=== PATIENT | male | born 1955 | race Caucasian/White ===

== ENCOUNTER 2019-07-08 11:29 | Inpatient (IN) | payer MEDICARE, OTHER ==
[~2019-07-08] VITALS: Ht 175 cm; Wt 95.3 kg
[2019-07-08] VITALS (9 sets, daily range): BP systolic 89–114; BP diastolic 60–74
[2019-07-08] MEDS ORDERED: ADENOSINE 6 MG/2 ML (ADENOCARD) VIAL IV ONE ×5 (11:37→12:00)
[2019-07-08] MEDS ORDERED: LACTATED RINGERS 1,000 ML IV ONE ×2 (11:44→12:44)
[2019-07-08] MEDS ORDERED: AMIODARONE INJECTION 450 MG in D5W IV SOLUTION (EXCEL) 250 ML IV SCH (12:00)
[2019-07-08] MEDS ORDERED: ASPIRIN 81 MG CHEW (CHILDREN'S ASA) PO ONE (12:00)
[2019-07-08] MEDS ORDERED: LACTATED RINGERS 1,000 ML IV SCH (12:00)
[2019-07-08 12:04] LABS: BASOPHILS % (AUTO) 1 % (0-10); EOSINOPHILS % (AUTO) 1 % (0-10); HEMATOCRIT 48 % (40-54); HEMOGLOBIN 15.3 G/DL (13.3-17.7); MEAN CORPUSCULAR HEMOGLOBIN 28 PG (25-34); MEAN CORPUSCULAR HGB CONC 32 G/DL (32-36); MEAN CORPUSCULAR VOLUME 88 FL (80-99); MEAN PLATELET VOLUME 11.1 FL (7.4-10.4); MONOCYTES % (AUTO) 9 % (0-12); NEUTROPHILS % (AUTO) 69 % (42-75); PLATELET COUNT 315 10^3/uL (130-400); RED CELL DISTRIBUTION WIDTH 12.4 % (10.0-14.5); WHITE BLOOD COUNT 15.4 10^3/uL (4.3-11.0)
[2019-07-08 12:05] LABS: BASOPHILS # (AUTO) 0.2 10^3/uL (0.0-0.1); EOSINOPHILS # (AUTO) 0.2 10^3/uL (0.0-0.3); LYMPHOCYTES % (AUTO) 20 % (12-44); MONOCYTES # (AUTO) 1.4 X 10^3 (0.0-1.0); NEUTROPHILS # (AUTO) 10.6 X 10^3 (1.8-7.8)
[2019-07-08] MEDS ORDERED: D5W 100 ML IVPB 100 ML IV ONE (12:06)
[2019-07-08] MEDS ORDERED: AMIODARONE (OMNICELL DRIP KIT) 150 MG/3 ML IV ONE (12:07)
[2019-07-08 12:14] LABS: INR 0.9 (0.8-1.4); PROTHROMBIN TIME PATIENT 12.6 SEC (12.2-14.7)
[2019-07-08] MEDS ORDERED: AMIODARONE FOR BOLUS 150 MG in D5W 100 ML IVPB 100 ML IV ONE ×2 (12:15→12:45)
--- NOTE | 2019-07-08 12:15 | Diagnostic Imaging Report ---
EXAMINATION: Chest, one view. HISTORY: Preop. COMPARISON: 01/17/2008. FINDINGS: The lung volumes are normal. No focal consolidation is seen. No large pleural effusion or pneumothorax is seen. The cardiomediastinal silhouette is prominent with post-CABG changes noted. No acute osseous abnormality is seen. IMPRESSION: 1. Cardiomegaly. No focal consolidation or pulmonary mass. Dictated by: Dictated on workstation # [id number]
[2019-07-08 12:26] LABS: BAND NEUTROPHILS 3 %; BASOPHILS % (MANUAL) 1 %; LYMPHOCYTES % (MANUAL) 21 %; MONOCYTES % (MANUAL) 9 %; NEUTROPHILS % (MANUAL) 64 %; RBC MORPH NORMAL; REACTIVE LYMPHOCYTES 2 %
[2019-07-08 12:27] LABS: CARBON DIOXIDE 21 MMOL/L (21-32); CHLORIDE 98 MMOL/L (98-107); POTASSIUM 4.8 MMOL/L (3.6-5.0); SODIUM 134 MMOL/L (135-145)
[2019-07-08 12:28] LABS: ALANINE AMINOTRANSFERASE 35 U/L (0-55); ALBUMIN 4.5 GM/DL (3.2-4.5); ALKALINE PHOSPHATASE 81 U/L (40-136); BILIRUBIN,TOTAL 0.3 MG/DL (0.1-1.0); BUN/CREATININE RATIO 22; CALCIUM 10.2 MG/DL (8.5-10.1); CREATININE SERUM 0.93 MG/DL (0.60-1.30); GFR ESTIMATED > 60; GLUCOSE 309 MG/DL (70-105); MAGNESIUM 1.8 MG/DL (1.6-2.4); TOTAL PROTEIN 7.5 GM/DL (6.4-8.2)
--- NOTE | 2019-07-08 12:30 | ED Cardiac General ---
History of Present Illness General Chief Complaint: Dizziness/Syncope Stated Complaint: SYNCOPE Source: patient Exam Limitations: no limitations History of Present Illness Date Seen by Provider: Jul 08, 2019 Time Seen by Provider: 11:30 Initial Comments Here with report of near syncope this morning. States he has taken a shower and felt very weak. He eased himself down into the bathtub and did not fall. He did not completely pass out. After resting for a bit he felt better. 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 Had weakness and not feeling well afterwards and family finally talked him into coming into the emergency department. On arrival he was noted to have very fast heart rate. Does have history of triple bypass as well as abdominal aortic aneurysm repair in the 90s. He has had yearly exams for the abdominal aneurysm with no changes or concerns. Denies abdominal pain or chest pain. He is not on blood thinners but does take a spirin daily. He has no history of similar problems. Timing/Duration: 4-6 hours Severity: moderate Location: central Activities at Onset: activity Prior CP/Workup: cardiac cath, heart attack Modifying Factors: worse with exercise; improves with rest NTG SL ORACLE PROGRAMMER ANALYST: No ASA po ORACLE PROGRAMMER ANALYST: Yes Associated Systoms: No Chest Pain, No Fever/Chills, No Nausea/Vomiting, No Shortness of Air; Weakness Allergies and Home Medications Allergies Coded Allergies: No Known Drug Allergies (Unverified , 07/08/19) Patient Home Medication List Home Medication List Reviewed: Yes Review of Systems Review of Systems Constitutional: no symptoms reported EENTM: No Symptoms Reported Respiratory: See HPI Cardiovascular: See HPI, Irregular Heart Rate, Lightheadedness Gastrointestinal: Denies Abdominal Pain, Denies Diarrhea, Denies Nausea, Denies Vomiting Genitourinary: No Symptoms Reported Musculoskeletal: no symptoms reported Skin: no symptoms reported Psychiatric/Neurological: See HPI; Denies Headache, Denies Numbness Endocrine: No Symptoms Reported All Other Systems Reviewed Negative Unless Noted: Yes Past Plycwtd-Zlkgqs-Vczapm Hx Past Med/Social Hx: Reviewed Nursing Past Med/Soc Hx Patient Social History Alcohol Use: Denies Use Recreational Drug Use: No Smoking Status: Never a Smoker Recent Foreign Travel: No Past Medical History Surgeries: Yes Abdominal, CABG, Vascular Surgery Respiratory: No Cardiac: Yes Coronary Artery Disease, High Cholesterol, Hypertension Neurological: No Genitourinary: No Gastrointestinal: No Endocrine: Yes Diabetes, Non-Insulin dep Family Medical History Reviewed Nursing Family Hx Heart Disease Physical Exam Vital Signs Vital Signs - First Documented 07/08/19 07/08/19 11:35 12:37 Temp 36.2 Pulse 171 Resp 16 B/P (MAP) 110/77 (88) Pulse Ox 96 O2 Flow Rate 2.00 Capillary Refill : Height, Weight, BMI Height: '" Weight: lbs. oz. kg; BMI Method: General Appearance: No Apparent Distress, WD/WN HEENT: PERRL/EOMI, Pharynx Normal Neck: Non Tender, Supple Respiratory: Lungs Clear, Normal Breath Sounds Cardiovascular: No Murmur, Tachycardia Gastrointestinal: Non Tender, Soft Extremity: Normal Inspection, Normal Range of Motion, Non Tender, No Calf Tenderness Neurologic/Psychiatric: Alert, Oriented x3 Skin: Normal Color, Warm/Dry Progress/Results/Core Measures Results/Orders Lab Results Laboratory Tests Test 07/08/19 11:40 Range/Units White Blood Count 15.4 H 4.3-11.0 10^3/uL Red Blood Count 5.39 4.35-5.85 10^6/uL Hemoglobin 15.3 13.3-17.7 G/DL Hematocrit 48 40-54 % Mean Corpuscular Volume 88 80-99 FL Mean Corpuscular Hemoglobin 28 25-34 PG Mean Corpuscular Hemoglobin Concent 32 32-36 G/DL Red Cell Distribution Width 12.4 10.0-14.5 % Platelet Count 315 130-400 10^3/uL Mean Platelet Volume 11.1 H 7.4-10.4 FL Neutrophils (%) (Auto) 69 42-75 % Lymphocytes (%) (Auto) 20 12-44 % Monocytes (%) (Auto) 9 0-12 % Eosinophils (%) (Auto) 1 0-10 % Basophils (%) (Auto) 1 0-10 % Neutrophils # (Auto) 10.6 H 1.8-7.8 X 10^3 Lymphocytes # (Auto) 3.0 1.0-4.0 X 10^3 Monocytes # (Auto) 1.4 H 0.0-1.0 X 10^3 Eosinophils # (Auto) 0.2 0.0-0.3 10^3/uL Basophils # (Auto) 0.2 H 0.0-0.1 10^3/uL Neutrophils % (Manual) 64 % Lymphocytes % (Manual) 21 % Monocytes % (Manual) 9 % Basophils % (Manual) 1 % Band Neutrophils 3 % Reactive Lymphocytes 2 % Blood Morphology Comment NORMAL Prothrombin Time 12.6 12.2-14.7 SEC INR Comment 0.9 0.8-1.4 Activated Partial Thromboplast Time 26 24-35 SEC Sodium Level 134 L 135-145 MMOL/L Potassium Level 4.8 3.6-5.0 MMOL/L Chloride Level 98 98-107 MMOL/L Carbon Dioxide Level 21 21-32 MMOL/L Anion Gap 15 H 5-14 MMOL/L Blood Urea Nitrogen 20 H 7-18 MG/DL Creatinine 0.93 0.60-1.30 MG/DL Estimat Glomerular Filtration Rate > 60 BUN/Creatinine Ratio 22 Glucose Level 309 H 70-105 MG/DL Calcium Level 10.2 H 8.5-10.1 MG/DL Corrected Calcium 9.8 8.5-10.1 MG/DL Magnesium Level 1.8 1.6-2.4 MG/DL Total Bilirubin 0.3 0.1-1.0 MG/DL Aspartate Amino Transf (AST/SGOT) 29 5-34 U/L Alanine Aminotransferase (ALT/SGPT) 35 0-55 U/L Alkaline Phosphatase 81 40-136 U/L Myoglobin 65.6 10.0-92.0 NG/ML Troponin I < 0.30 <0.30 NG/ML Total Protein 7.5 6.4-8.2 GM/DL Albumin 4.5 3.2-4.5 GM/DL My Orders Orders - DAVID SEXTON MD Adenosine Injection (Adenocard Injection (07/08/19 11:37) Lactated Ringers (Lr 1000 Ml Iv Solution (07/08/19 11:44) Cbc With Automated Diff (07/08/19 11:48) Magnesium (07/08/19 11:48) Chest 1 View Ap/Pa Only (07/08/19 11:48) Ekg Tracing (07/08/19 11:48) Comprehensive Metabolic Panel (07/08/19 11:48) Myoglobin Serum (07/08/19 11:48) Protime With Inr (07/08/19 11:48) Partial Thromboplastin Time (07/08/19 11:48) O2 (07/08/19 11:48) Monitor-Rhythm Ecg Trace Only (07/08/19 11:48) Lipid Panel (07/09/19 06:00) Aspirin Chewable Tablet (Baby Aspirin Ch (07/08/19 12:00) Ed Iv/Invasive Line Start (07/08/19 11:48) Troponin I Fs (07/08/19 11:48) Adenosine Injection (Adenocard Injection (07/08/19 12:00) Adenosine Injection (Adenocard Injection (07/08/19 12:00) Adenosine Injection (Adenocard Injection (07/08/19 11:43) Adenosine Injection (Adenocard Injection (07/08/19 11:44) Lactated Ringers (Lr 1000 Ml Iv Solution (07/08/19 12:00) Metoprolol Succinate (Xl) Tab (Toprol Xl (07/08/19 12:00) Amiodarone Injection (Cordarone Injectio (07/08/19 12:00) D5w 100 Ml Ivpb (Dextrose 5% Water Iv So (07/08/19 12:06) Amiodarone For Bolus (Cordarone Bolus) (07/08/19 12:07) Amiodarone For Bolus (Cordarone Bolus) (07/08/19 12:15) Manual Differential (07/08/19 11:40) Amiodarone For Bolus (Cordarone Bolus) (07/08/19 12:45) Ed Iv/Invasive Line Start (07/08/19 12:44) Lr 1000ml Iv (07/08/19 12:44) Enoxaparin Injection (Lovenox Injection) (07/08/19 12:45) Medications Given in ED Current Medications Medications Dose Ordered Sig/Lucía Route Start Time Stop Time Status Last Admin Dose Admin Adenosine 6 mg ONCE ONCE IV 07/08/19 12:00 07/08/19 12:01 DC 07/08/19 11:41 6 MG Adenosine 12 mg ONCE ONCE IV 07/08/19 12:00 07/08/19 12:01 DC 07/08/19 11:45 12 MG Amiodarone HCl 150 mg/Dextrose 103 ml @ 600 mls/hr ONCE ONCE IV 07/08/19 12:15 07/08/19 12:25 DC 07/08/19 12:22 600 MLS/HR Amiodarone HCl 150 mg/Dextrose 103 ml @ 600 mls/hr ONCE ONCE IV 07/08/19 12:45 07/08/19 12:55 07/08/19 12:41 600 MLS/HR Aspirin 324 mg ONCE ONCE PO 07/08/19 12:00 07/08/19 12:01 DC 07/08/19 12:06 324 MG Metoprolol Succinate 50 mg ONCE ONCE PO 07/08/19 12:00 07/08/19 12:01 DC 07/08/19 12:06 50 MG Vital Signs/I&O 07/08/19 07/08/19 11:35 12:37 Temp 36.2 Pulse 171 Resp 16 B/P (MAP) 110/77 (88) Pulse Ox 96 92 O2 Flow Rate 2.00 Progress Progress Note : Progress Note Seen and evaluated. IV, labs, EKG and chest x-ray ordered. ASA 324 mg by mouth ordered. Adenosine 6 mg IV followed by 12 mg IV with no change in heart rate. This does appear to be ventricular tachycardia related. I did discuss the case with Dr. Forman at 1155. He is recommending amiodarone bolus of 150 mg and up to 300 mg followed by amiodarone drip. Also recommending metoprolol XL 50 mg by mouth. He will need to be admitted to the ICU and we will make arrangements for that. At this point, patient's blood pressure is greater than 90 systolic and he is not symptomatic so synchronized cardioversion is not indicated yet but still remains possible. We will initiate orders as directed and monitor the patient with anticipation of transfered to [facility] ICU. 1249: We will initiate Lovenox 100 mg subcutaneous which is approximately 1 mg/kg. He is getting second bolus of amiodarone. Blood pressure is noted to be 80s to 90s but he is mentating well. We do have LR running and we'll continue that at 125 an hour. I did discuss the case with Dr. Saucedo and she accepts patient for admission on- call for [facility]. Patient will go to the ICU. Heart rate has dropped to the 150s now. Initial ECG Impression Date: Jul 08, 2019 Initial ECG Impression Time: 11:35 Initial ECG Rate: 174 Initial ECG Rhythm: V.Tach Initial ECG Comparisson: No Previous ECG Available Comment Ventricular tachycardia with rate of 1 and a for and left axis deviation. No evidence of ST elevation OK although it would be difficult to determine with the rate. Interpreted by me. Discussed with Dr. Forman. Diagnostic Imaging Diagonstic Imaging: Xray Plain Films/CT/US/NM/MRI: chest Comments [facility], [facility]. POS [place], [place] POS NAME: MICHAEL HENDRICKSON [facility] REC#: [id number] PT STATUS: REG ER : 1955 PHYSICIAN: DAVID SEXTON MD ADMIT DATE: 07/08/19/ER FS Signed POSDate of Exam:07/08/19 CHEST 1 VIEW AP/PA ONLY EXAMINATION: Chest, one view. HISTORY: Preop. COMPARISON: 01/17/2008. FINDINGS: The lung volumes are normal. No focal consolidation is seen. No large pleural effusion or pneumothorax is seen. The cardiomediastinal silhouette is prominent with post-CABG changes noted. No acute osseous abnormality is seen. IMPRESSION: 1. Cardiomegaly. No focal consolidation or pulmonary mass. Dictated by: Dictated on workstation # [id number] Dict: 07/08/19 1213 Trans: 07/08/19 1217 [id number] Interpreted by: ELI FOSTER DO Electronically signed by: ELI FOSTER DO 07/08/19 1217 Reviewed: Reviewed by Me Departure Communication (Admissions) Time/Spoke to Consulting Phy: 11:55 Impression Primary Impression: Ventricular tachycardia, incessant Disposition: ADMITTED INPATIENT Condition: Critical Admissions Decision to Admit Reason: Admit from ER (General) Decision to Admit/Date: Jul 08, 2019 Time/Decision to Admit Time: 11:55 Departure-Patient Inst. Referrals: SHIRA GOMEZ MD (PCP/Family) Primary Care Physician DAVID SEXTON MD Jul 08, 2019 12:30 POS
[2019-07-08] MEDS ORDERED: ENOXAPARIN 100 MG/1 ML (LOVENOX) SYR SC ONE (12:45)
[2019-07-08] MEDS ORDERED: LIDOCAINE 2% VISCOUS 15 ML UDC ONE (14:24)
[2019-07-08] MEDS ORDERED: NS IV 500 ML 500 ML ONE (14:25)
[2019-07-08] MEDS ORDERED: proPOfol 200 MG/20 ML (DIPRIVAN) VIAL IV ONE (14:26)
[2019-07-08] MEDS ORDERED: MIDAZOLAM 5 MG/5 ML (VERSED) VIAL ONE (14:26)
--- NOTE | 2019-07-08 14:37 | Consultation-Cardiology ---
HPI-Cardiology Cardiology Consultation: Date of Consultation 07/08/19 Time Seen by a Provider: 14:15 Date of Admission Attending Physician Sharlene Saucedo DO Admitting Physician Dex Beasley MD Consulting Physician MIGEL TAMAYO MD, MA, FACP, FACC, FSCAI, CCDS HPI: Chief Complaint: Reason for consultation: VT HPI 64 yo man who presented to [facility] ER for an episode of near-syncope lasting a few seconds this am. 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 Was noted to have wide-complex tach. Treated with amiodarone and sent to this hosp. Denies cp or palp. Has chronic mild to mod shortness of breath. No leg swelling Review of Systems-Cardiology Review of Systems Constitutional: malaise, tiredness; No weight loss, No weight gain Eyes: No vision change Ears/Nose/Throat: No ear discharge, No nasal drainage, No recent hearing loss Respiratory: As described under HPI Cardiovascular: As described under HPI Gastrointestinal: No constipation, No diarrhea, No nausea, No vomiting Genitourinary: No dysuria, No hematuria, No urine frequency changes Musculoskeletal: No back pain, No joint pain Skin: No rash Psychiatric/Neurological: No seizure, No focal weakness, No syncope Hematologic: No bleeding abnormalities All Other Systems Reviewed Negative Unless Noted: Yes IEL-Dqdsgm-Wkpmxj Hx Patient Social History Alcohol Use: Denies Use Recreational Drug Use: No Smoking Status: Never a Smoker 2nd Hand Smoke Exposure: No Recent Foreign Travel: No Recent Infectious Disease Expo: No Hospitalization with Isolation: Denies Immunizations Up To Date Date of Pneumonia Vaccine: May 07, 2017 Date of Influenza Vaccine: May 06, 2019 Past Medical History PMH As described under Assessment. Family Medical History Family Medical History: Does not report fam h/o early CAD or SCD Allergies and Home Medications Allergies Coded Allergies: No Known Drug Allergies (Unverified , 07/08/19) Patient Home Medication List Home Medication List Reviewed: Yes Physical Exam-Cardiology Physical Exam Vital Signs/I&O 07/08/19 07/08/19 07/08/19 11:35 12:37 13:07 Temp 36.2 35.5 Pulse 171 163 Resp 16 24 B/P (MAP) 110/77 (88) 111/81 Pulse Ox 96 92 92 O2 Flow Rate 2.00 Capillary Refill : Less Than 3 Seconds Constitutional: AAO x 3, well-developed, well-nourished HEENT: EOMI, hearing is well preserved; No xanthelasmas are seen Neck: carotid pulses are 2 + bilaterally, with good upstrokes Respiratory: No accessory muscle use; other (fair to good air entry) Cardiovascular: regular rate-rhythm, S1 and S2, systolic murmur (2/6 CRISTINA at card base) Gastrointestinal: No tender; soft; No guarding, No rebound; audible bowel sounds Extremities: No pedal edema, No clubbing, No cyanosis Neurologic/Psychiatric: oriented x 3, other (moves all limbs equally) Skin: No rash on exposed areas, No ulcerations on exposed areas Data Review Labs Laboratory Tests 07/08/19 11:40: White Blood Count 15.4H, Red Blood Count 5.39, Hemoglobin 15.3, Hematocrit 48, Mean Corpuscular Volume 88, Mean Corpuscular Hemoglobin 28, Mean Corpuscular Hemoglobin Concent 32, Red Cell Distribution Width 12.4, Platelet Count 315, Mean Platelet Volume 11.1H, Neutrophils (%) (Auto) 69, Lymphocytes (%) (Auto) 20, Monocytes (%) (Auto) 9, Eosinophils (%) (Auto) 1, Basophils (%) (Auto) 1, Neutrophils # (Auto) 10.6H, Lymphocytes # (Auto) 3.0, Monocytes # (Auto) 1.4H, Eosinophils # (Auto) 0.2, Basophils # (Auto) 0.2H, Neutrophils % (Manual) 64, Lymphocytes % (Manual) 21, Monocytes % (Manual) 9, Basophils % (Manual) 1, Band Neutrophils 3, Reactive Lymphocytes 2, Blood Morphology Comment NORMAL, Prothrombin Time 12.6, INR Comment 0.9, Activated Partial Thromboplast Time 26, Sodium Level 134L, Potassium Level 4.8, Chloride Level 98, Carbon Dioxide Level 21, Anion Gap 15H, Blood Urea Nitrogen 20H, Creatinine 0.93, Estimat Glomerular Filtration Rate > 60, BUN/Creatinine Ratio 22, Glucose Level 309H, Calcium Level 10.2H, Corrected Calcium 9.8, Magnesium Level 1.8, Total Bilirubin 0.3, Aspartate Amino Transf (AST/SGOT) 29, Alanine Aminotransferase (ALT/SGPT) 35, Alkaline Phosphatase 81, Myoglobin 65.6, Troponin I < 0.30, Total Protein 7.5, Albumin 4.5 A/P-Cardiology Assessment/Admission Diagnosis Incessant VT CAD. H/o CABG in the 1990s PAD. H/o AAA intervention (details unknown to patient several years ago DM II Obesity with BMI approx 31 Noncompliance (apparently not following with any cardiologists for several years) Discussion and Recomendations Critical Care: 2:10 pm - 2:50pm I recommended cardioversion of VT because hemodynamically significant (pre sumably the cause of near-syncope this am) and unresponsive to amiodarone started at [facility] this am. He was alert enough to understand all issues and provided informed consent. Anesthesia Svce was requested stat. We gave 100 J sync shock through external pads under short-acting anesthesia. This restored NSR Plan to continue therapy with amiodarone ASA and beta-donte Lovenox for now Would need ischemia w/u. If no ischemia issues, then ICD Clinical Quality Measures AMI/AHF: ASA po Prior to arrival: Yes DVT/VTE Risk/Contraindication: Risk Factor Score Per Nursin RFS Level Per Nursing on Admit: 4+=Very High MIGEL TAMAYO MD FACP FACC CCDS Jul 08, 2019 14:37 POS
[2019-07-08] MEDS ORDERED: AMIODARONE 450 MG/250 ML D5W EXCEL IV SCH ×2 (14:45)
[2019-07-08] MEDS ORDERED: METF-399 PO (14:52)
[2019-07-08] MEDS ORDERED: SITA100T12 PO (14:52)
[2019-07-08] MEDS ORDERED: ATEN25TA PO (14:52)
[2019-07-08] MEDS ORDERED: LOSA100T57 PO (14:52)
[2019-07-08] MEDS ORDERED: PRAV40TA2 PO (14:52)
[2019-07-08] MEDS ORDERED: ASPI-983 PO (14:52)
[2019-07-08] MEDS ORDERED: CITA20TA9 PO (14:52)
--- NOTE | 2019-07-08 14:54 | Anesthesia-General Post-Op ---
MAC Patient Condition Mental Status/LOC: Same as Preop Cardiovascular: Satisfactory Nausea/Vomiting: Absent Respiratory: Satisfactory Pain: Controlled Complications: Absent Post Op Complications Complications None Follow Up Care/Instructions Patient Instructions None needed. Anesthesiology Discharge Order Discharge Order Patient is doing well, no complaints, stable vital signs, no apparent adverse anesthesia problems. No complications reported per nursing. MANPREET MAYS CRNA Jul 08, 2019 14:54 POS
[2019-07-08] MEDS ORDERED: CATHETER FLUSH 10 ML SYR IV PRN (15:00)
[2019-07-08] MEDS ORDERED: ASPI-808 PO (15:03)
[2019-07-08] MEDS ORDERED: NAPR220T66 PO (15:03)
[2019-07-08] MEDS ORDERED: DOCU-238 PO (15:03)
--- NOTE | 2019-07-08 15:04 | NUR ---
SPOKE WITH THE PATIENT ABOUT HIS MEDICATIONS. WE WENT OVER THE EXT MED HX AND HE VERIFIED HOW HE TAKES THEM. HE TAKES THE FOLLOWING OTC: ASPIRIN 325MG DAILY COLACE BID ALEVE 1 TAB PRN
--- NOTE | 2019-07-08 15:30 | NUR ---
1415- THIS NURSE NOTIFIED GORDON WITH DR TAMAYO PT IS ON THE FLOOR. 1420- ANESTHESIA NOTIFIED DR TAMAYO WOULD LIKE ASSISTANCE WITH [facility]. 1430 ANESTHESIA AT BEDSIDE 1439- SUPPLIES GATHERED AND DR TAMAYO AT BEDSIDE 1439- IV PROPOFOL GIVEN PER ANESTHESIA 1441- SYNCHRONIZED SHOCK DELIVERED AT [address] TAMAYO. PT IS NSR WITH A HEART RATE OF 66 1442 EKG OBTAINED AND PLACED ON CHART. DR TAMAYO ORDER TO CONTINUE AMIO. DRIP. NURSE AT BEDSIDE TO MONITOR. VITALS STABLE.
--- NOTE | 2019-07-08 16:36 | NUR ---
PT GIVEN 4 ML OF DEFINITY SOLUTION. PT TOLERATED EXAM WELL.
[2019-07-08] MEDS: inSUlin ASPART (NovoLOG) 1 UNIT/0.01 ML (CHARGE PER UNIT) SC SCH ×2 (17:13→20:51)
--- NOTE | 2019-07-08 17:21 | NUR ---
THIS NURSE NOTIFIED DR LAWSON PT IN NSR POST [facility]. ORDERS GIVEN FOR HEART HEALTHY DIET.
[2019-07-08] MEDS: NS IV 1000 ML 1,000 ML IV SCH (17:39)
[2019-07-08] MEDS: MAGNESIUM 1 GM/D5W 100 ML IVPB IV SCH ×2 (18:58→20:17)
--- NOTE | 2019-07-08 21:28 | History & Physical-Hospitalist ---
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 He has a history of aortic aneurysm repair in 2010 and a history of a heart attack in 1993. He was placed on amiodarone drip per cardiology recommendations and he became stable and when he arrived in ICU he was shocked which return the patient back to normal sinus rhythm. Currently he denies any pain or shortness of breath. He does not use oxygen at home. His sister is at the bedside. Source: patient, family, RN/MD Exam Limitations: no limitations Date Seen 07/08/19 Time Seen by a Provider: 18:00 Attending Physician Sharlene Saucedo Pankaj K MD Referring Physician Date of Admission Jul 08, 2019 at 13:07 Home Medications & Allergies Home Medications Reviewed patient Home Medication Reconciliation performed by pharmacy medication reconciliations accelerator technician and/or nursing. Patients Allergies have been reviewed. Allergies Allergies Coded Allergies No Known Drug Allergies (Pphsxvfqou06/3/19) Past Stkdwus-Hhjmeu-Tjgtba Hx Past Med/Social Hx: Reviewed Nursing Past Med/Soc Hx, Reviewed and Corrections made Patient Social History Marrital Status: single Employed/Student: employed Alcohol Use: Denies Use Recreational Drug Use: No Smoking Status: Never a Smoker 2nd Hand Smoke Exposure: No Recent Foreign Travel: No Contact w/other who traveled: No Recent Infectious Disease Expo: No Immunizations Up To Date Date of Pneumonia Vaccine: May 07, 2017 Date of Influenza Vaccine: May 06, 2019 Past Medical History Surgeries: Abdominal, CABG, Vascular Surgery Cardiac: Coronary Artery Disease, High Cholesterol, Hypertension Endocrine: Diabetes, Non-Insulin dep Family History Reviewed Nursing Family Hx Heart Disease Review of Systems Constitutional: see HPI, malaise, weakness Psychiatric/Neurological: Weakness Physical Exam Physical Exam Vital Signs Vital Signs - First Documented 07/08/19 07/08/19 07/08/19 11:35 12:37 14:15 Temp 36.2 Pulse 171 Resp 16 B/P (MAP) 110/77 (88) Pulse Ox 96 O2 Delivery Nasal Cannula O2 Flow Rate 2.00 Capillary Refill : Less Than 3 Seconds Height, Weight, BMI Height: '" Weight: lbs. oz. kg; 30.53 BMI Method: General Appearance: No Apparent Distress, WD/WN, Chronically ill Eyes: Right Eye Normal Inspection, Right Eye PERRL HEENT: PERRL/EOMI, Normal ENT Inspection, Pharynx Normal, Moist Mucous Membranes Neck: Full Range of Motion, Normal Inspection, Non Tender Respiratory: Chest Non Tender, Lungs Clear, Normal Breath Sounds, No Accessory Muscle Use, No Respiratory Distress Cardiovascular: Regular Rate, Rhythm, No Edema, No Gallop, No JVD, No Murmur, Normal Peripheral Pulses Gastrointestinal: Normal Bowel Sounds, No Organomegaly, No Pulsatile Mass, Non Tender, Soft Back: Normal Inspection, No CVA Tenderness, No Vertebral Tenderness Extremity: Normal Capillary Refill, Normal Inspection, Normal Range of Motion, Non Tender, No Calf Tenderness, No Pedal Edema Neurologic/Psychiatric: Alert, Oriented x3, No Motor/Sensory Deficits, Normal Mood/Affect Skin: Normal Color, Warm/Dry Lymphatic: No Adenopathy Results Results/Procedures Labs Laboratory Tests 07/08/19 11:40 Patient resulted labs reviewed. Assessment/Plan Admission Diagnosis Assessment: s/p shock for Ventricular tachycardia CAD AAA s/p repair 2010 Plan: Appreciate Cardiology expertise Admission Status: Inpatient Order (span 2 midnights) Reason for Inpatient Admission: V tachy Diagnosis/Problems Diagnosis/Problems (1) Ventricular tachycardia, incessant Status: Acute Clinical Quality Measures AMI/AHF: ASA po Prior to arrival: Yes DVT/VTE Risk/Contraindication: Risk Factor Score Per Nursin RFS Level Per Nursing on Admit: 4+=Very High SHARLENE SAUCEDO DO Jul 08, 2019 21:28 POS
[2019-07-09] VITALS (23 sets, daily range): BP systolic 75–188; BP diastolic 40–121
--- NOTE | 2019-07-09 00:07 | OPERATIVE REPORT ---
DATE OF SERVICE: PREOPERATIVE DIAGNOSIS: Incessant ventricular tachycardia. POSTOPERATIVE DIAGNOSIS: Sinus rhythm. PROCEDURE: External electrical cardioversion. The patient is a 64-year-old man who presented with incessant ventricular tachycardia. There was evidence of hemodynamic instability (symptoms of near syncope prior to presentation). The ventricular tachycardia did not respond to amiodarone. Consent was obtained for cardioversion. The nurse records specialist provided short acting general anesthesia under which 100 joules biphasic shock was given through external pads which converted incessant ventricular tachycardia to sinus rhythm. He tolerated the procedure well. Job ID: [id number] DocumentID: [id number] Dictated Date: 07/08/2019 16:33:34 Loss Prevention Research Engineer Date: 07/09/2019 00:07:37 Dictated By: MIGEL TAMAYO MD, MA, FACP, FACC,
[2019-07-09] MEDS: NS IV 1000 ML 1,000 ML IV SCH ×3 (01:42→16:10)
[2019-07-09 04:19] LABS: BASOPHILS # (AUTO) 0.1 10^3/uL (0.0-0.1); BASOPHILS % (AUTO) 1 % (0-10); EOSINOPHILS # (AUTO) 0.2 10^3/uL (0.0-0.3); EOSINOPHILS % (AUTO) 2 % (0-10); HEMATOCRIT 40 % (40-54); HEMOGLOBIN 12.9 G/DL (13.3-17.7); LYMPHOCYTES # (AUTO) 2.4 X 10^3 (1.0-4.0); LYMPHOCYTES % (AUTO) 23 % (12-44); MEAN CORPUSCULAR HEMOGLOBIN 29 PG (25-34); MEAN CORPUSCULAR HGB CONC 33 G/DL (32-36); MEAN CORPUSCULAR VOLUME 89 FL (80-99); MEAN PLATELET VOLUME 11.3 FL (7.4-10.4); MONOCYTES # (AUTO) 1.1 X 10^3 (0.0-1.0); MONOCYTES % (AUTO) 11 % (0-12); NEUTROPHILS # (AUTO) 6.6 X 10^3 (1.8-7.8); NEUTROPHILS % (AUTO) 64 % (42-75); PLATELET COUNT 229 10^3/uL (130-400); RED CELL DISTRIBUTION WIDTH 12.9 % (10.0-14.5); WHITE BLOOD COUNT 10.4 10^3/uL (4.3-11.0)
[2019-07-09 04:45] LABS: ALANINE AMINOTRANSFERASE 25 U/L (0-55); ALBUMIN 3.6 GM/DL (3.2-4.5); ALKALINE PHOSPHATASE 48 U/L (40-136); BILIRUBIN,TOTAL 0.3 MG/DL (0.1-1.0); BUN/CREATININE RATIO 17; CALCIUM 8.5 MG/DL (8.5-10.1); CARBON DIOXIDE 19 MMOL/L (21-32); CHLORIDE 107 MMOL/L (98-107); CHOLESTEROL 116 MG/DL (< 200); CREATININE SERUM 0.93 MG/DL (0.60-1.30); GFR ESTIMATED > 60; GLUCOSE 196 MG/DL (70-105); HDL CHOLESTEROL 21 MG/DL (40-60); POTASSIUM 4.4 MMOL/L (3.6-5.0); SODIUM 137 MMOL/L (135-145); TOTAL PROTEIN 5.7 GM/DL (6.4-8.2); TRIGLYCERIDES 230 MG/DL (<150); VLDL CHOLESTEROL 46 MG/DL (5-40)
[2019-07-09] MEDS: inSUlin ASPART (NovoLOG) 1 UNIT/0.01 ML (CHARGE PER UNIT) SC SCH ×4 (06:01→19:58)
--- NOTE | 2019-07-09 08:44 | Progress Note - Hospitalist ---
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 He has a history of aortic aneurysm repair in 2010 and a history of a heart attack in 1993. He was placed on amiodarone drip per cardiology recommendations and he became stable and when he arrived in ICU he was shocked which return the patient back to normal sinus rhythm. Currently he denies any pain or shortness of breath. He does not use oxygen at home. His sister is at the bedside. Subjective/Events-last exam Patient was alert and looked well. Patient stated that he felt fine but his tailbone did feel bruise possibly due to lowering himself in the shower Patient was positive that he did not hit his head. Patient denied any urinary symptoms but has not had a bowel movement which he reported as normal. Review of Systems General: No Chills, No Other (fevers) HEENT: No Head Aches, No Visual Changes, No Eye Pain Pulmonary: No Dyspnea, No Cough Cardiovascular: No: Chest Pain, Palpitations, Edema Gastrointestinal: No: Nausea, Vomiting, Abdominal Pain Genitourinary: No Dysuria Musculoskeletal: other (Chronic symptoms) Objective Exam Vital Signs Vital Signs Date Time Temp Pulse Resp B/P (MAP) Pulse Ox O2 Delivery O2 Flow Rate FiO2 07/09/19 13:00 61 16 130/70 (90) 93 Nasal Cannula 2.00 07/09/19 12:00 36.1 Capillary Refill : Less Than 3 Seconds General Appearance: No Apparent Distress, WD/WN HEENT: Normal ENT Inspection Neck: Normal Inspection, Supple Respiratory: Chest Non Tender, Lungs Clear, No Accessory Muscle Use, No Respiratory Distress Cardiovascular: No Edema, Normal Peripheral Pulses (2/4 radial bilaterally), Bradycardia (with regular rhythm) Gastrointestinal: Non Tender, Soft, Distended Extremity: Non Tender, No Calf Tenderness Neurologic/Psychiatric: Alert, Oriented x3, Normal Mood/Affect Skin: Normal Color, Warm/Dry Results/Procedures Lab Laboratory Tests 12/4/19 03:30 Patient resulted labs reviewed. Assessment/Plan Assessment and Plan Assess & Plan/Chief Complaint Monomorphic ventricular tachycardia Echo showed Hypokenesis of inferiorseptal myocardium, inferior myocardium, mid inferior myocardium History of triple bypass and AAA Chronic Constipation minimal pain of tailbone Amiodarone ASA and beta-donte Lovenox Miralax Clinical Quality Measures AMI/AHF: ASA po Prior to arrival: Yes DVT/VTE Risk/Contraindication: Risk Factor Score Per Nursin RFS Level Per Nursing on Admit: 4+=Very High SHARLENE LAWSON DO 07/09/192052: Subjective Subjective/Events-last exam Pt doing pretty well Cardiac cath set for tomorrow Miralax twice daily will be added Will HgbA1C because his blood sugars are out of control and he doesn't check his sugars at home Review of Systems General: Fatigue Objective Exam General Appearance: No Apparent Distress, WD/WN Respiratory: Lungs Clear Cardiovascular: Regular Rate, Rhythm Neurologic/Psychiatric: Alert, Oriented x3, No Motor/Sensory Deficits, Normal Mood/Affect Assessment/Plan Assessment and Plan Assess & Plan/Chief Complaint Cath Miralax Diagnosis/Problems Diagnosis/Problems (1) Ventricular tachycardia, incessant Status: Acute Supervisory-Addendum Brief Verification & Attestation Participated in pt care: history, MDM, physical Personally performed: exam, history, MDM, supervision of care Care discussed with: Medical Student Procedures: n/a Results interpretation: Verified all documentation Verification and Attestation of Medical Student E/M Service A medical student performed and documented this service in my presence. I reviewed and verified all information documented by the medical student and made modifications to such information, when appropriate. I personally performed the physical exam and medical decision making. Sharlene Lawson, Jul 09, 2019,20:53 [facility] Jul 09, 2019 08:44 SHARLENE CHAMPAGNE DO Jul 09, 2019 20:53 POS
[2019-07-09] MEDS ORDERED: CLOPIDOGREL 75 MG (PLAVIX) TABLET PO NR (10:00)
[2019-07-09] MEDS: meTOproloL SUCCINATE 50 MG (TOPROL XL) TAB PO SCH (10:11)
[2019-07-09] MEDS: ASPIRIN 81 MG CHEW (CHILDREN'S ASA) PO SCH (10:11)
--- NOTE | 2019-07-09 11:45 | Pulmonary Consultation ---
History of Present Illness History of Present Illness Date Seen by Provider: Jul 09, 2019 Time Seen by Provider: 13:27 Date of Admission History of Present Illness 64 yo presented to [facility] ER secondary to worsening weakness and near-syncope lasting a few seconds this am. Pt was noted while in the ED to have wide-complex tach. Treated with amiodarone and sent to this hosp. Denies cp or palp. Has chronic mild to mod shortness of breath. No leg swelling Allergies and Home Medications Allergies Coded Allergies: No Known Drug Allergies (Unverified , 07/08/19) Home Medications Amiodarone HCl 200 Mg Tablet, 400 MG PO DAILY Prescribed by: GORDON MAYFIELD on 07/11/19 1202 Aspirin 81 Mg Tab.chew, 81 MG PO DAILY Prescribed by: GORDON MAYFIELD on 07/11/19 1202 Atorvastatin Calcium 40 Mg Tablet, 40 MG PO HS Prescribed by: GORDON MAYFIELD on 07/11/19 1202 Cefuroxime Axetil 500 Mg Tablet, 500 MG PO BID Prescribed by: GORDON MAYFIELD on 07/11/19 1203 Citalopram Hydrobromide 20 Mg Tablet, 20 MG PO HS, (Reported) Clopidogrel Bisulfate 75 Mg Tablet, 75 MG PO DAILY Prescribed by: GORDON MAYFIELD on 07/11/19 1202 Docusate Sodium 100 Mg Capsule, 100 MG PO BID, (Reported) Glyburide 1.25 Mg Tablet, 1.25 MG PO BID Prescribed by: GUERA LAWSON on 07/12/19 1200 Metoprolol Succinate 100 Mg Tab.er.24h, 100 MG PO DAILY Prescribed by: GORDON MAYFIELD on 07/11/19 1202 Sacubitril/Valsartan 1 Each Tablet, 1 TAB PO BID Prescribed by: GORDON MAYFIELD on 07/11/19 1202 Sitagliptin Phosphate 100 Mg Tablet, 100 MG PO DAILY, (Reported) Past Refkyft-Bsuzqx-Djruqt Hx Past Med/Social Hx: Reviewed Nursing Past Med/Soc Hx, Reviewed and Corrections made Patient Social History Alcohol Use: Denies Use Recreational Drug Use: No Smoking Status: Never a Smoker 2nd Hand Smoke Exposure: No Recent Foreign Travel: No Contact w/Someone Who Travel: No Recent Infectious Disease Expo: No Physical Abuse: No Sexual Abuse: No Mistreated: No Fear: No Immunizations Up To Date Date of Pneumonia Vaccine: May 07, 2017 Date of Influenza Vaccine: May 06, 2019 Past Medical History Surgeries: Yes Abdominal, CABG, Vascular Surgery Respiratory: No Cardiac: Yes Coronary Artery Disease, High Cholesterol, Hypertension Neurological: No Genitourinary: No Gastrointestinal: No Endocrine: Yes Diabetes, Non-Insulin dep HEENT: No Cancer: No Psychosocial: No Family Medical History Reviewed Nursing Family Hx Heart Disease Review of Systems Time Seen by Provider: 13:29 Sepsis Event Evaluation Height, Weight, BMI Height: '" Weight: lbs. oz. kg; 30.53 BMI Method: Exam Exam Vital Signs Date Time Temp Pulse Resp B/P (MAP) Pulse Ox O2 Delivery O2 Flow Rate FiO2 07/09/19 11:00 60 14 118/83 (95) 91 Nasal Cannula 2.00 07/09/19 10:00 60 20 117/76 (90) 91 Nasal Cannula 2.00 07/09/19 09:00 60 9 116/70 (85) 91 Nasal Cannula 2.00 07/09/19 08:00 96 Room Air 07/09/19 08:00 60 19 130/77 (94) 91 Nasal Cannula 2.00 07/09/19 07:00 56 22 109/61 (77) 92 Nasal Cannula 2.00 07/09/19 06:47 57 07/09/19 06:00 55 13 109/61 (77) 90 Nasal Cannula 2.00 07/09/19 05:00 55 14 96/53 (67) 91 Nasal Cannula 2.00 07/09/19 04:00 Room Air 07/09/19 04:00 54 21 84/49 (61) 91 Nasal Cannula 2.00 07/09/19 03:00 54 12 88/40 (56) 93 Nasal Cannula 2.00 07/09/19 02:00 53 16 75/40 (52) 92 Nasal Cannula 2.00 07/09/19 01:00 55 20 98/56 (70) 91 Nasal Cannula 2.00 07/09/19 01:00 54 07/09/19 00:00 36.1 07/09/19 00:00 Room Air 07/09/19 00:00 58 13 101/65 (77) 94 Nasal Cannula 2.00 07/08/19 23:00 57 16 104/60 (75) 92 Nasal Cannula 2.00 07/08/19 22:00 56 18 92 Nasal Cannula 2.00 07/08/19 21:00 59 20 106/67 (80) 92 Nasal Cannula 2.00 07/08/19 20:21 36.6 07/08/19 20:00 61 18 111/69 (83) 92 Nasal Cannula 2.00 07/08/19 20:00 Room Air 07/08/19 19:00 64 07/08/19 19:00 63 14 105/72 (83) 93 Nasal Cannula 2.00 07/08/19 18:00 67 18 114/74 (87) 99 Nasal Cannula 2.00 07/08/19 17:00 63 10 89/65 (73) 99 Nasal Cannula 2.00 07/08/19 16:00 99 Nasal Cannula 2.00 07/08/19 16:00 66 15 105/72 (83) 97 Nasal Cannula 2.00 07/08/19 15:43 36.4 07/08/19 15:00 68 19 100/71 (81) 96 Nasal Cannula 2.00 07/08/19 14:41 67 07/08/19 14:20 96 Room Air 07/08/19 14:15 160 16 90/69 (76) 95 Nasal Cannula 2.00 07/08/19 14:02 161 07/08/19 13:07 35.5 163 24 111/81 92 07/08/19 12:37 92 2.00 I & O 07/09/19 06:59 Intake Total 4365 ml Balance 4365 ml Height & Weight Height: '" Weight: lbs. oz. kg; 30.53 BMI Method: General Appearance: No Apparent Distress, WD/WN HEENT: Normal ENT Inspection Neck: Normal Inspection, Supple Respiratory: Chest Non Tender, Lungs Clear, No Accessory Muscle Use, No Resp iratory Distress Cardiovascular: No Edema, Normal Peripheral Pulses (2/4 radial bilaterally), Bradycardia (with regular rhythm) Capillary Refill: Less Than 3 Seconds Extremity: Non Tender, No Calf Tenderness Neurologic/Psychiatric: Alert, Oriented x3, Normal Mood/Affect Skin: Normal Color, Warm/Dry Lymphatic: No Adenopathy Results Lab Laboratory Tests 07/08/19 11:40 07/09/19 03:30 Assessment/Plan Assessment/Plan S/p V tach -Cardiology consulted Obesity with probable DEVEN -Will plan for PSG CAD AAA s/p repair 2010 JOE العلي DO Jul 09, 2019 11:44
--- NOTE | 2019-07-09 15:52 | Progress Note - Cardiology ---
Cardiology SOAP Progress Note Subjective: No cp or palp or syncope or shortness of breath at rest No swelling No N/V Mild gen malaise Objective: I&O/Vital Signs 07/09/19 07/09/19 07/09/19 07/09/19 04:00 04:00 05:00 06:00 Pulse 54 55 55 Resp 21 14 13 B/P (MAP) 84/49 (61) 96/53 (67) 109/61 (77) Pulse Ox 91 91 90 O2 Delivery Nasal Cannula Room Air Nasal Cannula Nasal Cannula O2 Flow Rate 2.00 2.00 2.00 07/09/19 07/09/19 07/09/19 07/09/19 06:47 07:00 08:00 08:00 Pulse 57 56 60 Resp 22 19 B/P (MAP) 109/61 (77) 130/77 (94) Pulse Ox 92 91 96 O2 Delivery Nasal Cannula Nasal Cannula Room Air O2 Flow Rate 2.00 2.00 07/09/19 07/09/19 07/09/19 07/09/19 09:00 10:00 11:00 12:00 Pulse 60 60 60 66 Resp 9 20 14 39 B/P (MAP) 116/70 (85) 117/76 (90) 118/83 (95) 188/121 (143) Pulse Ox 91 91 91 93 O2 Delivery Nasal Cannula Nasal Cannula Nasal Cannula Nasal Cannula O2 Flow Rate 2.00 2.00 2.00 2.00 07/09/19 07/09/19 07/09/19 12:00 13:00 13:00 Temp 36.1 Pulse 61 61 Resp 16 B/P (MAP) 130/70 (90) Pulse Ox 93 O2 Delivery Nasal Cannula O2 Flow Rate 2.00 07/09/19 00:00 Intake Total 3215 ml Balance 3215 ml Constitutional: AAO x 3, well-developed, well-nourished Respiratory: No accessory muscle use; other (fair to good air entry) Cardiovascular: regular rate-rhythm, S1 and S2, systolic murmur (2/6 CRISTINA at card base) Gastrointestional: No tender; soft; No guarding, No rebound; audible bowel sounds Extremities: No pedal edema, No clubbing, No cyanosis Neurologic/Psychiatric: oriented x 3, other (moves all limbs equally) Skin: No rash on exposed areas, No ulcerations on exposed areas Results/Procedures: Labs Laboratory Tests 07/08/19 20:35: Glucometer 257H 07/09/19 03:30: White Blood Count 10.4, Red Blood Count 4.46, Hemoglobin 12.9L, Hematocrit 40, Mean Corpuscular Volume 89, Mean Corpuscular Hemoglobin 29, Mean Corpuscular Hemoglobin Concent 33, Red Cell Distribution Width 12.9, Platelet Count 229, Mean Platelet Volume 11.3H, Neutrophils (%) (Auto) 64, Lymphocytes (%) (Auto) 23, Monocytes (%) (Auto) 11, Eosinophils (%) (Auto) 2, Basophils (%) (Auto) 1, Neutrophils # (Auto) 6.6, Lymphocytes # (Auto) 2.4, Monocytes # (Auto) 1.1H, Eosinophils # (Auto) 0.2, Basophils # (Auto) 0.1, Sodium Level 137, Potassium Level 4.4, Chloride Level 107, Carbon Dioxide Level 19L, Anion Gap 11, Blood Urea Nitrogen 16, Creatinine 0.93, Estimat Glomerular Filtration Rate > 60, BUN/Creatinine Ratio 17, Glucose Level 196H, Calcium Level 8.5, Corrected Calc ium 8.8, Magnesium Level 2.0, Total Bilirubin 0.3, Aspartate Amino Transf (AST/SGOT) 34, Alanine Aminotransferase (ALT/SGPT) 25, Alkaline Phosphatase 48, Total Protein 5.7L, Albumin 3.6, Triglycerides Level 230H, Cholesterol Level 116, LDL Cholesterol Direct 79, VLDL Cholesterol 46H, HDL Cholesterol 21L, Thyroid Stimulating Hormone (TSH) 0.78 07/09/19 09:00: Troponin I 4.179*H 07/09/19 09:56: Glucometer 263H Laboratory Tests 07/08/19 11:40 07/09/19 03:30 A/P: Assessment: Elevated troponin: unclear if type I MT (ACS) or type 2 MT (incessant VT yesterday) Incessant VT on 07/08/19 CAD. H/o CABG in the PAD. H/o AAA intervention (details unknown to patient several years ago DM II Obesity with BMI approx 31 Noncompliance (apparently not following with any cardiologists for several years) Plan: Card cath recommended. Rationale, procedure, risks, benefits, potential complications, alternatives reviewed (of cath and possibly ad hoc PCI). He understands and provides informed consent. Scheduled for tomorrow If no ischemia issues, then ICD would be needed ASA and beta-donte Add Plavix Change Lovenox to DVT-prophylaxis dose Clinical Quality Measures AMI/AHF: ASA po Prior to arrival: Yes MIGEL TAMAYO MD FACP [facility] CCDS Jul 09, 2019 15:52 POS
[2019-07-09] MEDS: ENOXAPARIN 40 MG/0.4 ML (LOVENOX) SYR SC SCH (17:02)
[2019-07-09] MEDS ORDERED: POLYETHYLENE GLYCOL 17 GM (MIRALAX) PACK PO ONE (21:00)
[2019-07-10] VITALS (21 sets, daily range): BP systolic 103–163; BP diastolic 58–99
[2019-07-10] MEDS: NS IV 1000 ML 1,000 ML IV SCH ×4 (00:19→18:18)
[2019-07-10 03:39] LABS: HEMOGLOBIN 12.8 G/DL (13.3-17.7); MEAN PLATELET VOLUME 11.3 FL (7.4-10.4); RED CELL DISTRIBUTION WIDTH 12.8 % (10.0-14.5); WHITE BLOOD COUNT 9.6 10^3/uL (4.3-11.0)
[2019-07-10 03:58] LABS: BUN/CREATININE RATIO 16; CALCIUM 8.3 MG/DL (8.5-10.1); CARBON DIOXIDE 20 MMOL/L (21-32); CHLORIDE 109 MMOL/L (98-107); CREATININE SERUM 0.88 MG/DL (0.60-1.30); GFR ESTIMATED > 60; GLUCOSE 175 MG/DL (70-105); POTASSIUM 4.1 MMOL/L (3.6-5.0); SODIUM 139 MMOL/L (135-145)
[2019-07-10 04:21] LABS: MAGNESIUM 1.8 MG/DL (1.6-2.4); PHOSPHORUS 2.6 MG/DL (2.3-4.7)
[2019-07-10] MEDS: inSUlin ASPART (NovoLOG) 1 UNIT/0.01 ML (CHARGE PER UNIT) SC SCH ×4 (05:28→19:53)
--- NOTE | 2019-07-10 05:54 | Pulmonary Progress Note ---
Subjective Time Seen by a Provider: 05:54 Subjective/Events-last exam Heart cath planned for today. Sepsis Event Evaluation Height, Weight, BMI Height: '" Weight: lbs. oz. kg; 30.53 BMI Method: Exam Exam Vital Signs Date Time Temp Pulse Resp B/P (MAP) Pulse Ox O2 Delivery O2 Flow Rate FiO2 07/10/19 03:27 97 Room Air 07/10/19 03:26 37.0 07/10/19 03:00 77 23 141/77 (98) 90 Room Air 07/10/19 02:00 66 20 103/58 (73) 89 Room Air 07/10/19 01:00 66 23 122/74 (90) 88 Room Air 07/10/19 01:00 66 07/10/19 00:00 73 22 129/73 (91) 90 Room Air 07/10/19 00:00 97 Room Air 07/09/19 23:58 37.1 07/09/19 23:00 80 26 138/81 (100) 89 Room Air 07/09/19 22:00 70 24 115/63 (80) 89 Room Air 07/09/19 21:00 71 22 99/71 (80) 90 Room Air 07/09/19 20:00 77 21 132/89 (103) 90 Room Air 07/09/19 20:00 37.7 07/09/19 20:00 97 Room Air 07/09/19 19:00 75 13 108/56 (73) 89 Room Air 07/09/19 19:00 75 07/09/19 18:00 71 16 180/56 (97) 94 Room Air 07/09/19 17:00 63 25 91 Room Air 07/09/19 16:00 60 25 132/81 (98) 90 Room Air 07/09/19 16:00 97 Room Air 07/09/19 16:00 36.7 07/09/19 15:00 70 28 126/85 (99) 92 Room Air 07/09/19 14:00 60 21 114/67 (83) 91 Room Air 07/09/19 13:00 61 16 130/70 (90) 93 Nasal Cannula 2.00 07/09/19 13:00 61 07/09/19 12:00 98 Room Air 07/09/19 12:00 36.1 07/09/19 12:00 66 39 188/121 (143) 93 Nasal Cannula 2.00 07/09/19 11:00 60 14 118/83 (95) 91 Nasal Cannula 2.00 07/09/19 10:00 60 20 117/76 (90) 91 Nasal Cannula 2.00 07/09/19 09:00 60 9 116/70 (85) 91 Nasal Cannula 2.00 07/09/19 08:00 96 Room Air 07/09/19 08:00 60 19 130/77 (94) 91 Nasal Cannula 2.00 07/09/19 07:00 56 22 109/61 (77) 92 Nasal Cannula 2.00 07/09/19 06:47 57 07/09/19 06:00 55 13 109/61 (77) 90 Nasal Cannula 2.00 I & O 07/10/19 07:00 Intake Total 2100 ml Output Total 400 ml Balance 1700 ml Height & Weight Height: '" Weight: lbs. oz. kg; 30.53 BMI Method: General Appearance: No Apparent Distress, WD/WN HEENT: Normal ENT Inspection Neck: Normal Inspection, Supple Respiratory: Lungs Clear Cardiovascular: Regular Rate, Rhythm Capillary Refill: Less Than 3 Seconds Extremity: Non Tender, No Calf Tenderness Neurologic/Psychiatric: Alert, Oriented x3, No Motor/Sensory Deficits, Normal Mood/Affect Skin: Normal Color, Warm/Dry Lymphatic: No Adenopathy Results Lab Laboratory Tests 07/08/19 11:40 07/09/19 03:30 07/10/19 03:05 Assessment/Plan Assessment/Plan S/p V tach -Cardiology consulted -Plan is for cardiac cath today Obesity with probable DEVEN -Will plan for PSG CAD AAA s/p repair 2010 JOE العلي DO Jul 10, 2019 05:54 POS
[2019-07-10] MEDS ORDERED: NALOXONE 0.4 MG/ML 1 ML (NARCAN) VIAL IV ONE (06:00)
[2019-07-10] MEDS ORDERED: NALOXONE INJECTION 0.4 MG in NS (IVPB) 99 ML IV SCH (06:00)
[2019-07-10] MEDS ORDERED: fentaNYL INJECTION 100 MCG/2 ML AMP ONE (08:04)
[2019-07-10] MEDS ORDERED: MIDAZOLAM 5 MG/5 ML (VERSED) VIAL ONE (08:04)
[2019-07-10] MEDS ORDERED: HEParin (CATH LAB) 2,000 ML IV ONE (08:05)
[2019-07-10] MEDS ORDERED: LIDOCAINE 1% INJ 20 ML 20 ML VIAL ONE (08:05)
[2019-07-10] MEDS ORDERED: NS IV 1000 ML 0 ML ONE (08:05)
[2019-07-10] MEDS: meTOproloL SUCCINATE 50 MG (TOPROL XL) TAB PO SCH (08:11)
[2019-07-10] MEDS: CLOPIDOGREL 75 MG (PLAVIX) TABLET PO SCH (08:11)
[2019-07-10] MEDS: ASPIRIN 81 MG CHEW (CHILDREN'S ASA) PO SCH (08:11)
--- NOTE | 2019-07-10 08:28 | NUR ---
Pt to clinical lab specialist at 0812 accompanied by Isac VERMA
--- NOTE | 2019-07-10 09:55 | Progress Note - Cardiology ---
Cardiology SOAP Progress Note Subjective: No cp or palp or syncope or shortness of breath at rest No ankle swelling Objective: I&O/Vital Signs 07/09/19 07/09/19 07/09/19 07/10/19 22:00 23:00 23:58 00:00 Temp 37.1 Pulse 70 80 Resp 24 26 B/P (MAP) 115/63 (80) 138/81 (100) Pulse Ox 89 89 97 O2 Delivery Room Air Room Air Room Air 07/10/19 07/10/19 07/10/19 07/10/19 00:00 01:00 01:00 02:00 Pulse 73 66 66 66 Resp 22 23 20 B/P (MAP) 129/73 (91) 122/74 (90) 103/58 (73) Pulse Ox 90 88 89 O2 Delivery Room Air Room Air Room Air 07/10/19 07/10/19 07/10/19 07/10/19 03:00 03:26 03:27 04:00 Temp 37.0 Pulse 77 60 Resp 23 13 B/P (MAP) 141/77 (98) 125/77 (93) Pulse Ox 90 97 88 O2 Delivery Room Air Room Air Room Air 07/10/19 07/10/19 07/10/19 07/10/19 05:00 06:00 07:00 07:00 Pulse 67 61 64 65 Resp 20 22 27 B/P (MAP) 133/81 (98) 111/59 (76) 153/94 (113) Pulse Ox 89 90 90 O2 Delivery Room Air Room Air Room Air 07/10/19 08:00 Pulse 62 Resp 22 B/P (MAP) 131/80 (97) Pulse Ox 91 O2 Delivery Room Air 07/10/19 00:00 Intake Total 825 ml Output Total 400 ml Balance 425 ml Constitutional: AAO x 3, well-developed, well-nourished Respiratory: No accessory muscle use; other (fair to good air entry) Cardiovascular: regular rate-rhythm, S1 and S2, systolic murmur (2/6 CRISTINA at card base) Gastrointestional: No tender; soft; No guarding, No rebound; audible bowel sounds Extremities: No pedal edema, No clubbing, No cyanosis Neurologic/Psychiatric: oriented x 3, other (moves all limbs equally) Skin: No rash on exposed areas, No ulcerations on exposed areas Results/Procedures: Labs Laboratory Tests 07/09/19 09:56: Glucometer 263H 07/09/19 17:00: Glucometer 143H 07/09/19 17:14: Troponin I 3.124*H 07/09/19 19:42: Glucometer 219H 07/10/19 03:05: White Blood Count 9.6, Red Blood Count 4.42, Hemoglobin 12.8L, Hematocrit 39L, Mean Corpuscular Volume 89, Mean Corpuscular Hemoglobin 29, Mean Corpuscular Hemoglobin Concent 33, Red Cell Distribution Width 12.8, Platelet Count 187, Mean Platelet Volume 11.3H, Sodium Level 139, Potassium Level 4.1, Chloride Level 109H, Carbon Dioxide Level 20L, Anion Gap 10, Blood Urea Nitrogen 14, Creatinine 0.88, Estimat Glomerular Filtration Rate > 60, BUN/Creatinine Ratio 1 6, Glucose Level 175H, Calcium Level 8.3L, Phosphorus Level 2.6, Magnesium Level 1.8 A/P: Assessment: Incessant, monomorphic VT on 07/08/19 (for 4 or more hours prior to cardiovers ion) H/o multiple syncope in the last 2 years CAD with h/o CABG in the late . Cath of 07/10/19: prox occlusion of LAD, 50% mid LCX, moderately severe disease of prox RCA and GRADE FOREMAN of distal RCA, GRADE FOREMAN of SVG presumably to distal RCA, patent SVG to diag with up to 60% prox stenosis, patent but atretic SANDERS to LAD, elevated LVEDP, LVEF approx 35%, dyskinesis of posterobasal wall, akinesis of diaphragmatic wall Ischemic cardiomyopathy, chronic, see above Elevated troponin: type 2 NH (incessant, scar VT on 07/18/19 for 4 hours) Abnormal ECG: Qs and some ST elev in infero-lat leads, reflective of posterobasal scar and dyskinetic segment PAD. H/o AAA intervention (details unknown to patient several years ago DM II Obesity with BMI approx 31 Noncompliance (apparently not following with any cardiologists for several years) Plan: Based on card cath of 07/10/19, VT appears scar-based, not ischemic. Mild troponin elevation (max approx 4) appears due to incessant VT for four or more hours prior to definitive treatment. He has h/o multiple syncope in the last two years. This also favors scar VT. My recommendation in AICD. Will discuss with other cardiologists. Have requested EP consult ASA, Plavix, Entresto, statin and beta-donte Clinical Quality Measures AMI/AHF: ASA po Prior to arrival: Yes MIGEL TAMAYO MD FACP [facility] CCDS Jul 10, 2019 09:55 POS
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
[2019-07-10] MEDS ORDERED: SACUBITRIL/VALSARTAN 24/26 MG (ENTRESTO) TABLET PO ONE (10:15)
[2019-07-10] MEDS ORDERED: PATIENT MAY USE OWN MEDS, ALL PO SCH (10:15)
--- NOTE | 2019-07-10 10:48 | Progress Note - Hospitalist ---
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 He has a history of aortic aneurysm repair in 2010 and a history of a heart attack in 1993. He was placed on amiodarone drip per cardiology recommendations and he became stable and when he arrived in ICU he was shocked which return the patient back to normal sinus rhythm. Currently he denies any pain or shortness of breath. He does not use oxygen at home. His sister is at the bedside. Subjective/Events-last exam Patient stated that he felt okay. 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 Dr. Forman will place ICD if no ischemia is present Troponin I was down to 3.124 HgB was stable at 12.8 Review of Systems General: No Chills, No Other (fevers) HEENT: No Eye Pain, No Ear Pain Pulmonary: No Dyspnea; Cough Cardiovascular: No: Chest Pain, Palpitations, Edema Gastrointestinal: No: Nausea, Vomiting, Abdominal Pain Musculoskeletal: other (Chronic MSK pain) Neurological: No: Numbness Objective Exam Vital Signs Vital Signs Date Time Temp Pulse Resp B/P (MAP) Pulse Ox O2 Delivery O2 Flow Rate FiO2 07/10/19 08:00 62 22 131/80 (97) 91 Room Air 07/10/19 03:26 37.0 07/09/19 13:00 2.00 Capillary Refill : Less Than 3 Seconds General Appearance: No Apparent Distress Neck: Normal Inspection, Non Tender, Supple Respiratory: Chest Non Tender, Lungs Clear, Normal Breath Sounds, No Accessory Muscle Use, No Respiratory Distress Cardiovascular: Regular Rate, Rhythm, No Edema, Normal Peripheral Pulses (2/4 radial bilaterally) Gastrointestinal: Soft, Distended Extremity: Non Tender, No Calf Tenderness Neurologic/Psychiatric: Alert, Oriented x3, Normal Mood/Affect Skin: Normal Color, Warm/Dry Results/Procedures Lab Laboratory Tests 07/10/19 03:05 Patient resulted labs reviewed. 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 Defibrillator will be placed if coronary arteries look good. No other issues. Review of Systems General: Fatigue Objective Exam General Appearance: No Apparent Distress, WD/WN, Chronically ill Assessment/Plan Assessment and Plan Assess & Plan/Chief Complaint Cath today Supervisory-Addendum Brief Verification & Attestation Participated in pt care: history, MDM, physical Personally performed: exam, history, MDM, supervision of care Care discussed with: Medical Student Procedures: n/a Results interpretation: Verified all documentation Verification and Attestation of Medical Student E/M Service A medical student performed and documented this service in my presence. I reviewed and verified all information documented by the medical student and made modifications to such information, when appropriate. I personally performed the physical exam and medical decision making. Sharlene Lawson, Jul 10, 2019,21:53 MORA DIAZ MED STUD Jul 10, 2019 10:48 HSARLENE CHAMPAGNE DO Jul 10, 2019 21:53 POS
--- NOTE | 2019-07-10 13:29 | Electrophysiology Consultation ---
HPI-Cardiology Cardiology Consultation: Date of Consultation 07/10/19 Date of Admission Attending Physician Sharlene Saucedo DO Admitting Physician Dex Beasley MD Consulting Physician Barbie BENJAMIN MD HPI: Time Seen by a Provider: 13:00 Chief Complaint: Sustained VT This is a 64-year-old gentleman who has history of hypertension, hyperlipidemia, diabetes, CAD/LA with CABG in the 90s at [facility] in [place]. He presented with a syncopal episode on 07/08/2019. It is unclear whether he completely passed out or it was near syncope. He was able to get himself out the shower and rested a little bit and felt better. 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 He continued to not feel well and he called his family who took him to the emergency department. He was found to be tachycardic. EKG showed wide complex tachycardia with hypotension. He was transferred to [facility] and Dr. Forman emergently cardioverted the patient to sinus rhythm. The patient was started on amiodarone in the ER. Patient denied shortness of breath or significant chest pain. Review of Systems-Cardiology Review of Systems Constitutional: malaise, tiredness; No weight loss, No weight gain Eyes: No vision change Ears/Nose/Throat: No ear discharge, No nasal drainage, No recent hearing loss Respiratory: As described under HPI Cardiovascular: As described under HPI, syncope Gastrointestinal: No constipation, No diarrhea, No nausea, No vomiting Genitourinary: No dysuria, No hematuria, No urine frequency changes Musculoskeletal: No back pain, No joint pain Skin: No rash Psychiatric/Neurological: syncope; No seizure, No focal weakness Hematologic: No bleeding abnormalities All Other Systems Reviewed Negative Unless Noted: Yes KRE-Eioosj-Osaufy Hx Patient Social History Marrital Status: single Employed/Student: employed Alcohol Use: Denies Use Recreational Drug Use: No Smoking Status: Never a Smoker 2nd Hand Smoke Exposure: No Recent Foreign Travel: No Recent Infectious Disease Expo: No Hospitalization with Isolation: Denies Immunizations Up To Date Date of Pneumonia Vaccine: May 07, 2017 Date of Influenza Vaccine: May 06, 2019 Past Medical History PMH As described under Assessment. Family Medical History Family Medical History: Does not report fam h/o early CAD or SCD Allergies and Home Medications Allergies Coded Allergies: No Known Drug Allergies (Unverified , 07/08/19) Home Medications Aspirin 325 Mg Tablet, 325 MG PO DAILY, (Reported) Atenolol 25 Mg Tablet, 25 MG PO DAILY, (Reported) Citalopram Hydrobromide 20 Mg Tablet, 20 MG PO HS, (Reported) Docusate Sodium 100 Mg Capsule, 100 MG PO BID, (Reported) Losartan Potassium 100 Mg Tablet, 100 MG PO HS, (Reported) Metformin HCl 1,000 Mg Tablet, 1,000 MG PO BID, (Reported) Naproxen Sodium 220 Mg Tablet, 220 MG PO Q8H PRN for PAIN-MILD (1-4), (Reported) Pravastatin Sodium 40 Mg Tablet, 40 MG PO HS, (Reported) Sitagliptin Phosphate 100 Mg Tablet, 100 MG PO DAILY, (Reported) Patient Home Medication List Home Medication List Reviewed: Yes Physical Exam-Cardiology Physical Exam Vital Signs/I&O 07/11/19 07/11/19 07/11/19 07/11/19 00:00 00:37 04:00 07:00 Temp 36.1 35.7 Pulse 72 68 72 51 Resp 20 18 B/P (MAP) 127/74 (91) 112/71 (85) Pulse Ox 91 92 O2 Delivery Room Air Room Air 07/11/19 07/11/19 08:00 08:00 Temp 37.1 Pulse 90 Resp 23 B/P (MAP) 163/84 (110) Pulse Ox 97 90 O2 Delivery Room Air Room Air 07/10/19 23:59 Intake Total 1110 ml Output Total 1150 ml Balance -40 ml Capillary Refill : Less Than 3 Seconds Constitutional: AAO x 3, well-developed, well-nourished HEENT: EOMI, hearing is well preserved; No xanthelasmas are seen Neck: carotid pulses are 2 + bilaterally, with good upstrokes Respiratory: No accessory muscle use; chest is bilaterally symmetric, lungs clear to auscultation, other (fair to good air entry) Cardiovascular: regular rate-rhythm, S1 and S2, systolic murmur (2/6 CRISTINA at card base) Gastrointestinal: No tender; soft; No guarding, No rebound; audible bowel sounds Extremities: normal range of motion, non-tender, normal inspection; No pedal edema, No clubbing, No cyanosis; no lower extremity edema bilateral Neurologic/Psychiatric: no motor/sensory deficits, alert, normal mood/affect, oriented x 3, other (moves all limbs equally) Skin: No rash on exposed areas, No ulcerations on exposed areas Data Review Labs Laboratory Tests 07/10/19 14:30: Glucometer 225H 07/10/19 19:51: Glucometer 183H 07/11/19 04:15: White Blood Count 8.1, Red Blood Count 4.48, Hemoglobin 12.8L, Hematocrit 40, Mean Corpuscular Volume 88, Mean Corpuscular Hemoglobin 29, Mean Corpuscular Hemoglobin Concent 32, Red Cell Distribution Width 12.7, Platelet Count 187, M richard Platelet Volume 11.0H, Sodium Level 139, Potassium Level 3.8, Chloride Level 108H, Carbon Dioxide Level 20L, Anion Gap 11, Blood Urea Nitrogen 12, Creatinine 0.80, Estimat Glomerular Filtration Rate > 60, BUN/Creatinine Ratio 15, Glucose Level 168H, Calcium Level 8.3L, Phosphorus Level 2.5, Magnesium Level 1.8 Microbiology 07/09/19 MRSA Screen - Final, Complete MRSA not isolated ECG Impression ECG Initial ECG Rhythm: V.Tach A/P-Cardiology Assessment/Admission Diagnosis Sustained ventricular tachycardia with hemodynamic compromise. CAD/LA, Hypertension, hyperlipidemia, Diabetes Plan Sustained ventricular tachycardia with hemodynamic compromise. Cardiac chase ctrophysiology consultation on management of sustained ventricular tachycardia. Patient had monomorphic ventricular tachycardia which suggest scar VT. Based on the EKG likely inferior scar origin VT. Unlikely due to acute ischemia, since monomorphic. Continue amiodarone and aggressive beta blockers. Will require ICD. Will also require VT ablation in the near future. Discussed at length with the patient and family. Echocardiogram and LV gram showed an EF of 35 percent. CAD/LA, likely type II myocardial infarction due to sustained VT for 2-3 hours, hypertension and cardioversion. Defer to Dr. Forman. Hypertension, hyperlipidemia, Diabetes Thank you for your consultation. Please call me if you have any questions. Saira Benjamin MD, FACP, FACC, FSCAI, FHRS, CCDS Interventional Cardiology Cardiac Electrophysiology Vascular Medicine and Endovascular Interventions Clinical Quality Measures AMI/AHF: ASA po Prior to arrival: Yes DVT/VTE Risk/Contraindication: Risk Factor Score Per Nursin RFS Level Per Nursing on Admit: 4+=Very High Barbie BENJAMIN MD Jul 10, 2019 13:29 POS
[2019-07-10] MEDS ORDERED: ceFAZolin INJECTION 1,000 MG VIAL IV ONE (13:30)
[2019-07-10] MEDS ORDERED: BACITRACIN INJECTION 50,000 UNIT, SODIUM CHLORIDE 0.9% IRRIGATIO 500 ML IR ONE ×2 (13:30)
[2019-07-10] MEDS ORDERED: ceFAZolin INJECTION 1,000 MG in WATER (STERILE) FOR INJECTION 10 ML IV NR ×2 (13:30→18:15)
[2019-07-10] MEDS ORDERED: BACITRACIN 50000 UNITS/500 ML NS IR ONE ×2 (13:45)
--- NOTE | 2019-07-10 17:00 | NUR ---
Initial contact with pt's and youngest son. Pt's son is repairing his mother's vehicle in the parking lot. Both warmly engaged and shared about current stressors at home and with pt's health, and expressed positive hopes of recovery for the pt. They requested prayers.
--- NOTE | 2019-07-10 18:03 | NUR ---
PT MOVED TO CARDIAC STEPDOWN UNIT AT 1750 THIS RN SPOKE WITH DR TAMAYO AND ORDERS RECEIVED TO MOVE TO [facility]. PT MOVED TO ROOM 510 ALL PERSONAL BELONGINGS MOVED WITH PT.
[2019-07-10] MEDS: ENOXAPARIN 40 MG/0.4 ML (LOVENOX) SYR SC SCH (18:10)
[2019-07-10] MEDS: SACUBITRIL/VALSARTAN 24/26 MG (ENTRESTO) TABLET PO SCH (19:59)
[2019-07-11] VITALS (15 sets, daily range): BP systolic 112–163; BP diastolic 68–84
--- NOTE | 2019-07-11 03:40 | Pulmonary Progress Note ---
Subjective Time Seen by a Provider: 03:40 Subjective/Events-last exam S/p Cath plan is for ICD today. Sepsis Event Evaluation Height, Weight, BMI Height: '" Weight: lbs. oz. kg; 30.53 BMI Method: Exam Exam Vital Signs Date Time Temp Pulse Resp B/P (MAP) Pulse Ox O2 Delivery O2 Flow Rate FiO2 07/11/19 00:37 68 07/11/19 00:00 36.1 72 20 127/74 (91) 91 Room Air 07/10/19 20:00 97 Room Air 07/10/19 20:00 37.1 90 23 163/84 (110) 90 Room Air 07/10/19 18:50 65 07/10/19 18:00 36.6 07/10/19 17:00 68 34 146/99 (115) 96 Room Air 07/10/19 16:00 67 35 133/69 (90) 94 Room Air 07/10/19 15:00 64 25 132/66 (88) 92 Room Air 07/10/19 14:00 78 92 Room Air 07/10/19 13:00 68 22 127/74 (91) 92 Room Air 07/10/19 12:20 57 07/10/19 12:15 97 Room Air 07/10/19 12:00 36.7 07/10/19 12:00 68 16 139/84 (102) 92 Room Air 07/10/19 11:00 65 28 126/77 (93) 92 Room Air 07/10/19 10:45 55 21 122/78 (93) 92 Room Air 07/10/19 10:15 63 20 122/69 (86) 91 Room Air 07/10/19 10:00 57 24 121/84 (96) 92 Room Air 07/10/19 09:45 59 17 122/71 (88) 92 Room Air 07/10/19 09:30 60 126/76 (93) 92 Room Air 07/10/19 08:25 95 Room Air 07/10/19 08:00 36.6 07/10/19 08:00 62 22 131/80 (97) 91 Room Air 07/10/19 07:00 65 27 153/94 (113) 90 Room Air 07/10/19 07:00 64 07/10/19 06:00 61 22 111/59 (76) 90 Room Air 07/10/19 05:00 67 20 133/81 (98) 89 Room Air 07/10/19 04:00 60 13 125/77 (93) 88 Room Air I & O 07/11/19 07:00 Intake Total 2110 ml Output Total 1150 ml Balance 960 ml Height & Weight Height: '" Weight: lbs. oz. kg; 30.53 BMI Method: General Appearance: No Apparent Distress, WD/WN, Chronically ill HEENT: Normal ENT Inspection Neck: Normal Inspection, Non Tender, Supple Respiratory: Chest Non Tender, Lungs Clear, Normal Breath Sounds, No Accessory Muscle Use, No Respiratory Distress Cardiovascular: Regular Rate, Rhythm, No Edema, Normal Peripheral Pulses (2/4 radial bilaterally) Capillary Refill: Less Than 3 Seconds Extremity: Non Tender, No Calf Tenderness Neurologic/Psychiatric: Alert, Oriented x3, Normal Mood/Affect Skin: Normal Color, Warm/Dry Lymphatic: No Adenopathy Results Lab Laboratory Tests 07/10/19 03:05 Assessment/Plan Assessment/Plan S/p Vtach - S/p Cath -Cardiology following -ICD placement planned for today Obesity with probable DEVEN -Plan for PSG CAD AAA s/p repair 2010 HTN DM JOE العلي DO Jul 11, 2019 03:40 POS
[2019-07-11 04:39] LABS: HEMOGLOBIN 12.8 G/DL (13.3-17.7); RED CELL DISTRIBUTION WIDTH 12.7 % (10.0-14.5); WHITE BLOOD COUNT 8.1 10^3/uL (4.3-11.0)
[2019-07-11 04:57] LABS: BUN/CREATININE RATIO 15; CALCIUM 8.3 MG/DL (8.5-10.1); CARBON DIOXIDE 20 MMOL/L (21-32); CHLORIDE 108 MMOL/L (98-107); GFR ESTIMATED > 60; GLUCOSE 168 MG/DL (70-105); MAGNESIUM 1.8 MG/DL (1.6-2.4); PHOSPHORUS 2.5 MG/DL (2.3-4.7); POTASSIUM 3.8 MMOL/L (3.6-5.0); SODIUM 139 MMOL/L (135-145)
[2019-07-11] MEDS ORDERED: NS IV 1000 ML 1,000 ML IV ONE (05:00)
[2019-07-11] MEDS: inSUlin ASPART (NovoLOG) 1 UNIT/0.01 ML (CHARGE PER UNIT) SC SCH ×4 (05:07→19:29)
[2019-07-11] MEDS: NS IV 1000 ML 1,000 ML IV SCH ×2 (06:35→16:02)
[2019-07-11] MEDS ORDERED: HEParin 1000 UNIT/ML (10ML VIAL) FOR BOLUS ONE (07:05)
[2019-07-11] MEDS ORDERED: LIDOCAINE 1% INJ 20 ML 20 ML VIAL ONE ×2 (07:05→09:06)
[2019-07-11] MEDS ORDERED: NS IV 1000 ML 1,000 ML ONE (07:05)
[2019-07-11] MEDS ORDERED: BACITRACIN 50000 UNITS/500 ML NS IR NR ×2 (08:00)
[2019-07-11] MEDS ORDERED: MIDAZOLAM 5 MG/5 ML (VERSED) VIAL ONE (08:10)
[2019-07-11] MEDS ORDERED: fentaNYL INJECTION 100 MCG/2 ML AMP ONE (08:10)
--- NOTE | 2019-07-11 08:30 | NUR ---
patient to roofing laborer via bed, accompanied by roofing laborer staff.
[2019-07-11] MEDS ORDERED: ceFAZolin INJECTION 1,000 MG ONE (08:34)
[2019-07-11] MEDS: ASPIRIN 81 MG CHEW (CHILDREN'S ASA) PO SCH (09:00)
[2019-07-11] MEDS: meTOproloL SUCCINATE 50 MG (TOPROL XL) TAB PO SCH (09:00)
[2019-07-11] MEDS: CLOPIDOGREL 75 MG (PLAVIX) TABLET PO SCH (09:00)
[2019-07-11] MEDS: SACUBITRIL/VALSARTAN 24/26 MG (ENTRESTO) TABLET PO SCH ×2 (09:00→20:09)
--- NOTE | 2019-07-11 09:48 | Cardiology Progress Note ---
Cardiology SOAP Progress Note Subjective: No cardiac complaints. Objective: I&O/Vital Signs 07/11/19 07/11/19 07/11/19 07/11/19 04:00 07:00 08:00 08:00 Temp 35.7 37.1 Pulse 72 51 90 Resp 18 23 B/P (MAP) 112/71 (85) 163/84 (110) Pulse Ox 92 97 90 O2 Delivery Room Air Room Air Room Air 07/11/19 00:00 Intake Total 1110 ml Output Total 1150 ml Balance -40 ml Constitutional: AAO x 3, well-developed, well-nourished Respiratory: No accessory muscle use; chest is bilaterally symmetric, lungs clear to auscultation, other (fair to good air entry) Cardiovascular: regular rate-rhythm, S1 and S2, systolic murmur (2/6 CRISTINA at card base) Gastrointestional: No tender; soft; No guarding, No rebound; audible bowel sounds Extremities: normal range of motion, non-tender, normal inspection; No pedal edema, No clubbing, No cyanosis; no lower extremity edema bilateral Neurologic/Psychiatric: no motor/sensory deficits, alert, normal mood/affect, oriented x 3, other (moves all limbs equally) Skin: No rash on exposed areas, No ulcerations on exposed areas Results/Procedures: Labs Laboratory Tests 07/10/19 14:30: Glucometer 225H 07/10/19 19:51: Glucometer 183H 07/11/19 04:15: White Blood Count 8.1, Red Blood Count 4.48, Hemoglobin 12.8L, Hematocrit 40, Mean Corpuscular Volume 88, Mean Corpuscular Hemoglobin 29, Mean Corpuscular Hemoglobin Concent 32, Red Cell Distribution Width 12.7, Platelet Count 187, Mean Platelet Volume 11.0H, Sodium Level 139, Potassium Level 3.8, Chloride Level 108H, Carbon Dioxide Level 20L, Anion Gap 11, Blood Urea Nitrogen 12, Creatinine 0.80, Estimat Glomerular Filtration Rate > 60, BUN/Creatinine Ratio 15, Glucose Level 168H, Calcium Level 8.3L, Phosphorus Level 2.5, Magnesium Level 1.8 Microbiology 07/09/19 MRSA Screen - Final, Complete MRSA not isolated A/P: Assessment/Dx: Sustained ventricular tachycardia with hemodynamic compromise. CAD/CO, Hypertension, hyperlipidemia, Diabetes Plan: Sustained ventricular tachycardia with hemodynamic compromise. Cardiac electrophysiology consultation on management of sustained ventricular tachycardia. Patient had monomorphic ventricular tachycardia which suggest scar VT. Based on the EKG likely inferior scar origin VT. Unlikely due to acute ischemia, since monomorphic. Continue amiodarone and aggressive beta blockers. ICD done today by Dr. Forman. Will also require VT ablation in the near future. Discussed at length with the patient and family. Echocardiogram and LV gram showed an EF of 35 percent. CAD/CO, likely type II myocardial infarction due to sustained VT for 2-3 hours, hypertension and cardioversion. Defer to Dr. Forman. Hypertension, hyperlipidemia, Diabetes Follow-up with the EP in 2-3 weeks after discharge. Thank you for your consultation. Please call me if you have any questions. Saira Benjamin MD, FACP, FACC, FSCAI, FHRS, CCDS Interventional Cardiology Cardiac Electrophysiology Vascular Medicine and Endovascular Interventions Clinical Quality Measures AMI/AHF: ASA po Prior to arrival: Yes Barbie BENJAMIN MD Jul 11, 2019 9:48 am POS
[2019-07-11] MEDS ORDERED: NEO/POLY/BAC (NEOSPORIN) OINT 15 GM TUBE ONE (10:07)
[2019-07-11] MEDS ORDERED: NS IV 1000 ML 1,000 ML IV SCH (10:31)
--- NOTE | 2019-07-11 10:31 | Progress Note - Cardiology ---
Cardiology SOAP Progress Note Subjective: No cp or palp or syncope No shortness of breath Malaise resolved after cardioversion of VT Objective: I&O/Vital Signs 07/11/19 07/11/19 07/11/19 07/11/19 00:00 00:37 04:00 07:00 Temp 36.1 35.7 Pulse 72 68 72 51 Resp 20 18 B/P (MAP) 127/74 (91) 112/71 (85) Pulse Ox 91 92 O2 Delivery Room Air Room Air 07/11/19 07/11/19 08:00 08:00 Temp 37.1 Pulse 90 Resp 23 B/P (MAP) 163/84 (110) Pulse Ox 97 90 O2 Delivery Room Air Room Air 07/11/19 00:00 Intake Total 1110 ml Output Total 1150 ml Balance -40 ml Constitutional: AAO x 3, well-developed, well-nourished Respiratory: No accessory muscle use; chest is bilaterally symmetric, lungs clear to auscultation, other (fair to good air entry) Cardiovascular: regular rate-rhythm, S1 and S2, systolic murmur (2/6 CRISTINA at card base) Gastrointestional: No tender; soft; No guarding, No rebound; audible bowel sounds Extremities: normal range of motion, non-tender, normal inspection; No pedal edema, No clubbing, No cyanosis; no lower extremity edema bilateral Neurologic/Psychiatric: no motor/sensory deficits, alert, normal mood/affect, oriented x 3, other (moves all limbs equally) Skin: No rash on exposed areas, No ulcerations on exposed areas Results/Procedures: Labs Laboratory Tests 07/10/19 14:30: Glucometer 225H 07/10/19 19:51: Glucometer 183H 07/11/19 04:15: White Blood Count 8.1, Red Blood Count 4.48, Hemoglobin 12.8L, Hematocrit 40, Mean Corpuscular Volume 88, Mean Corpuscular Hemoglobin 29, Mean Corpuscular Hemoglobin Concent 32, Red Cell Distribution Width 12.7, Platelet Count 187, Mean Platelet Volume 11.0H, Sodium Level 139, Potassium Level 3.8, Chloride Level 108H, Carbon Dioxide Level 20L, Anion Gap 11, Blood Urea Nitrogen 12, Creatinine 0.80, Estimat Glomerular Filtration Rate > 60, BUN/Creatinine Ratio 15, Glucose Level 168H, Calcium Level 8.3L, Phosphorus Level 2.5, Magnesium Level 1.8 Microbiology 07/09/19 MRSA Screen - Final, Complete MRSA not isolated A/P: Assessment: Scar-related VT: incessant, monomorphic VT on 07/08/19 (for 4 or more hours prior to cardioversion). S/p dual ch ICD placement on 07/11/19 H/o multiple syncope in the last 2 years CAD with h/o CABG in the late . Cath of 07/10/19: prox occlusion of LAD, 50% mid LCX, moderately severe disease of prox RCA and DOUGH MIXER of distal RCA, DOUGH MIXER of SVG presumably to distal RCA, patent SVG to diag with up to 60% prox stenosis, patent but atretic SANDERS to LAD, elevated LVEDP, LVEF approx 35%, dyskinesis of posterobasal wall, akinesis of diaphragmatic wall Ischemic cardiomyopathy, chronic, see above Elevated troponin: type 2 OH (incessant, scar VT on 07/18/19 for 4 hours) Abnormal ECG: Qs and some ST elev in infero-lat leads, reflective of posterobasal scar and dyskinetic segment PAD. H/o AAA intervention (details unknown to patient several years ago DM II Obesity with BMI approx 31 Noncompliance (apparently not following with any cardiologists for several years) Plan: * Discussed his case with other cardiologists in CV conference on 07/10/19 * Appreciate Dr Benjamin's EP eval and input * Dual-ch ICD done today * ASA, Plavix, Entresto, statin, amiodarone and beta-donte * Close outpt f/u Clinical Quality Measures AMI/AHF: ASA po Prior to arrival: Yes MIGEL TAMAYO MD FACP FAC CCDS Jul 11, 2019 10:31 POS
[2019-07-11] MEDS ORDERED: PATIENT MAY USE OWN MEDS, ALL PO SCH (10:45)
--- NOTE | 2019-07-11 10:45 | NUR ---
PATIENT BACK FROM [employer], VIA BED, ACCOMPANIED BY [employer]OWER[employer]W SUPER[employer] STAFF.
--- NOTE | 2019-07-11 10:50 | Diagnostic Imaging Report ---
INDICATION: Postcardiac pacemaker. TIME OF EXAM: 10:33 AM CORRELATION is made with prior chest from 07/08/2019. FINDINGS: Changes of median sternotomy and CABG are noted. Cardiac defibrillator has been placed. There is no pneumothorax identified. There is some atelectasis or infiltrate in the right lung base. Postsurgical changes mid and lower cervical spine are noted. IMPRESSION: Defibrillator placement. No pneumothorax is seen. There is some infiltrate or atelectasis in the right lung base. Dictated by: Dictated on workstation # [id number]
--- NOTE | 2019-07-11 11:23 | Progress Note - Hospitalist ---
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 He has a history of aortic aneurysm repair in 2010 and a history of a heart attack in 1993. He was placed on amiodarone drip per cardiology recommendations and he became stable and when he arrived in ICU he was shocked which return the patient back to normal sinus rhythm. Currently he denies any pain or shortness of breath. He does not use oxygen at home. His sister is at the bedside. 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 Patients family at bedside Review of Systems General: No Chills, No Other (fevers) Pulmonary: No Dyspnea, No Cough Cardiovascular: No: Chest Pain, Palpitations Gastrointestinal: No: Nausea, Vomiting, Abdominal Pain Objective Exam Vital Signs Vital Signs Date Time Temp Pulse Resp B/P (MAP) Pulse Ox O2 Delivery O2 Flow Rate FiO2 07/11/19 08:00 37.1 90 23 163/84 (110) 90 Room Air 07/09/19 13:00 2.00 Capillary Refill : Less Than 3 Seconds General Appearance: No Apparent Distress, WD/WN Neck: Normal Inspection, Non Tender Respiratory: No Accessory Muscle Use, No Respiratory Distress Cardiovascular: Regular Rate, Rhythm, No Edema Neurologic/Psychiatric: Alert, Oriented x3, Normal Mood/Affect Results/Procedures Lab Laboratory Tests 07/11/19 04:15 Patient resulted labs reviewed. Imaging: Reviewed Imaging Films, Reviewed Imaging Report Assessment/Plan Assessment and Plan Assess & Plan/Chief Complaint Monomorphic ventricular tachycardia Echo showed Hypokenesis of inferiorseptal myocardium, inferior myocardium, mid inferior myocardium History of triple bypass and AAA Chronic Constipation minimal pain of coccyx ICD implanted in Eligibility Counselor Plavix, ASA, Entresto, Statin, and Beta Pino Miralax Clinical Quality Measures AMI/AHF: ASA po Prior to arrival: Yes DVT/VTE Risk/Contraindication: Risk Factor Score Per Nursin RFS Level Per Nursing on Admit: 4+=Very High SHARLENE LAWSON DO 07/12/19 0925: Subjective Subjective/Events-last exam Pt had an ICD defibrillator today. Reports no significant SOB or chest pain. Family at the bedside. Overall doing pretty well otherwise. Hemoglobin A1c 10.9 indicating poor control Objective Exam General Appearance: No Apparent Distress Respiratory: Lungs Clear Cardiovascular: Regular Rate, Rhythm Assessment/Plan Assessment and Plan Assess & Plan/Chief Complaint Monitor new defib DC planned for soon Diagnosis/Problems Diagnosis/Problems (1) AICD (automatic cardioverter/defibrillator) present (2) Ventricular tachycardia, incessant Status: Acute (3) Diabetes mellitus Supervisory-Addendum Brief Verification & Attestation Participated in pt care: history, MDM, physical Personally performed: exam, history, MDM, supervision of care Care discussed with: Medical Student Procedures: n/a Results interpretation: Verified all documentation Verification and Attestation of Medical Student E/M Service A medical student performed and documented this service in my presence. I reviewed and verified all information documented by the medical student and made modifications to such information, when appropriate. I personally performed the physical exam and medical decision making. Sharlene Lawson, Jul 12, 2019,09:23 [facility] Jul 11, 2019 11:23 SHARLENE CHAMPAGNE DO Jul 12, 2019 09:25 POS
--- NOTE | 2019-07-11 11:31 | Cardiac Procedure Note-CS/ASA ---
Pre-Procedure Note Pre-Op Procedure Note H&P Reviewed The H&P was reviewed, patient examined and no changes noted. Date H&P Reviewed: Jul 11, 2019 Time H&P Reviewed: 08:30 Conscious Sedation Pre-Proced Time 08:30 ASA Score 4 For ASA 3 and 4: Consider anesthesia and medical clearance. Also, for patients with a history of failed moderate sedation consider anesthesia. Airway Lungs Heart ASA score ASA 1: a normal healthy patient ASA 2: a patient with a mild systemic disease (mid diabetes, controlled hypertension, obesity ASA 3: a patient with a severe systemic disease that limits activity (angina, COPD, prior Myocardial infarction) ASA 4: a patient with an incapacitating disease that is a constant threat to life (CHF, renal failure) ASA 5: a moribund patient not expected to survive 24 hrs. (ruptured aneurysm) ASA 6: a declared brain- patient whose organs are being harvested. For emergent operations, add the letter E after the classification Mallampati Classification Grade 2 Sedation Plan Analgesia, Amnesia, Plan communicated to team members, Discussed options with patient/fam, Discussed risks with patient/fam The patient is an appropriate candidate to undergo the planned procedure, sedation, and anesthesia. The patient immediately re-assessed prior to indication. MIGEL TAMAYO MD FACP FAC CCDS Jul 11, 2019 11:31 POS
[2019-07-11] MEDS ORDERED: ATOR40TA PO (12:02)
[2019-07-11] MEDS ORDERED: AMIO200T4 PO (12:02)
[2019-07-11] MEDS ORDERED: SACU1TAB2 PO (12:02)
[2019-07-11] MEDS ORDERED: ASPI-999 PO (12:02)
[2019-07-11] MEDS ORDERED: MTP100TCR PO (12:02)
[2019-07-11] MEDS ORDERED: CLOP75TA28 PO (12:02)
[2019-07-11] MEDS ORDERED: CEFU500T63 PO (12:03)
[2019-07-11] MEDS ORDERED: meTOproloL SUCCINATE 50 MG (TOPROL XL) TAB PO SCH (12:30)
[2019-07-11] MEDS ORDERED: AMIODARONE 200 MG (CORDARONE) TAB PO SCH (12:30)
--- NOTE | 2019-07-11 13:40 | NUR ---
This MEETA and KACIE NorrisDolly visited with patient due to needed resources for medication. Plan: The patient was given a 30 day free trail coupon for the medication Entresto. HANNA/VIMAL discussed with patient that he should have pharmacy check his insurance coverage for this medication to know what the copay will be. HANNA/SS also discussed other resources if needed. The patient verbalized understanding. No other needs at this time. Addendum: 07/14/19 at 0949 by ANA URBINA SEA SHELL GATHERER social work student note reviewed and approved
[2019-07-11] MEDS: ceFAZolin INJECTION 1,000 MG in WATER (STERILE) FOR INJECTION 10 ML IV SCH ×2 (16:00→23:02)
[2019-07-11] MEDS: ENOXAPARIN 40 MG/0.4 ML (LOVENOX) SYR SC SCH (17:07)
--- NOTE | 2019-07-11 19:09 | OPERATIVE REPORT ---
DATE OF SERVICE: 07/11/2019 PREOPERATIVE DIAGNOSIS: Scar-related ventricular tachycardia. POSTOPERATIVE DIAGNOSIS: Scar-related ventricular tachycardia. PROCEDURE: Dual chamber pacemaker defibrillator implantation. INDICATIONS: The patient is a 64-year-old man who presented with ventricular tachycardia and syncope. Prior cardiac catheterization did not show acute lesions. There is evidence of a large inferior myocardial scar. The electrocardiogram was consistent with scar related ventricular tachycardia. Pacemaker defibrillator implantation was recommended. Informed consent was obtained. DESCRIPTION OF PROCEDURE: He was brought to the cardiac catheterization in a fasting state. The left prepectoral area was prepared and draped in usual sterile fashion. Modified Seldinger technique was used to advance two guidewires into the left subclavian veins and the tip was placed in the right atrium. Sharp and blunt dissection was used to make a pacemaker pocket. The guidewires were used to advance sheaths and the guidewires were removed. The sheaths were used to advance leads and the sheaths were then removed. The pacemaker defibrillator lead was placed at the right ventricular apex. This is a tined lead. The atrial lead was placed at the site of the right atrial appendage. This is an active fixation lead. Good capture and sensing the thresholds were obtained. The model number of the right ventricular lead is a Medtronic [id number]. The length is 62. The serial number is [id number]. The right atrial lead is Medtronic model 5076-52 with serial [id number]. The right atrial catheter threshold was 0.4 volts at 0.5 milliseconds. Right atrial lead impedance was 786 ohms. P waves were measured at 3.7 volts. The right ventricular capture threshold was 0.2 volts at 0.5 milliseconds. Right ventricular impedance was 895 ohms. R-wave was measured at 23.9 millivolts. The leads were sutured to the prepectoral fascia after the pocket had thoroughly been irrigated with an antibiotic solution and good hemostasis was assured. For suturing of the leads, we used 0 Ethibond over the sleeves. The leads were attached to a dual chamber pacemaker defibrillator. Model number is Medtronic [id number]. The serial number of the device is [id number]. The leads were tested at 10 volts and there was no diaphragmatic stimulation. The pocket was closed in 2 layers using 3.0 Vicryl. The patient tolerated the procedure well. A ventricular tachycardia zone is set at 150 beats per minute and ventricular fibrillation zone at 188 beats per minute. A monitor zone is set at 130 beats per minute. Job ID: [id number] DocumentID: [id number] Dictated Date: 07/11/2019 10:20:01 Media Aid Date: 07/11/2019 19:09:15 Dictated By: MIGEL TAMAYO MD, MA, FACP, FACC,
[2019-07-12] MEDS: NS IV 1000 ML 1,000 ML IV SCH (03:00)
[2019-07-12 04:00] VITALS: BP 124/64
[2019-07-12 04:03] LABS: HEMOGLOBIN 13.4 G/DL (13.3-17.7); MEAN PLATELET VOLUME 11.4 FL (7.4-10.4); RED CELL DISTRIBUTION WIDTH 12.9 % (10.0-14.5); WHITE BLOOD COUNT 8.8 10^3/uL (4.3-11.0)
[2019-07-12 04:33] LABS: ALANINE AMINOTRANSFERASE 15 U/L (0-55); ALBUMIN 3.8 GM/DL (3.2-4.5); ALKALINE PHOSPHATASE 44 U/L (40-136); BILIRUBIN,TOTAL 0.5 MG/DL (0.1-1.0); BUN/CREATININE RATIO 15; CALCIUM 8.7 MG/DL (8.5-10.1); CARBON DIOXIDE 20 MMOL/L (21-32); CHLORIDE 106 MMOL/L (98-107); CREATININE SERUM 0.81 MG/DL (0.60-1.30); GFR ESTIMATED > 60; GLUCOSE 151 MG/DL (70-105); MAGNESIUM 1.8 MG/DL (1.6-2.4); PHOSPHORUS 3.1 MG/DL (2.3-4.7); POTASSIUM 3.8 MMOL/L (3.6-5.0); SODIUM 138 MMOL/L (135-145); TOTAL PROTEIN 6.5 GM/DL (6.4-8.2)
[2019-07-12] MEDS: inSUlin ASPART (NovoLOG) 1 UNIT/0.01 ML (CHARGE PER UNIT) SC SCH (05:58)
[2019-07-12 08:00] VITALS: BP 127/74
--- NOTE | 2019-07-12 08:56 | Cardiology Progress Note ---
Subjective Date Seen by Provider: Jul 12, 2019 Time Seen by Provider: 08:52 Subjective/Events-last exam Patient is sitting in a chair, feeling better, no chest pain. Review of Systems General: No Chills, No Night Sweats, No Fatigue, No Malaise, No Appetite, No Other HEENT: No Head Aches, No Visual Changes, No Eye Pain, No Ear Pain, No Dysphasia, No Sinus Congestion, No Post Nasal Drip, No Sore Throat, No Other Pulmonary: No Dyspnea, No Cough, No Pleuritic Chest Pain, No Other Cardiovascular: No: Chest Pain, Palpitations, Orthopnea, Paroxysmal Noc. Dyspnea, Edema, Lt Headedness, Other Objective-Cardiology Exam Last Set of Vital Signs Vital Signs 07/12/19 07/12/19 04:00 07:00 Temp 36.0 Pulse 61 Resp 16 B/P (MAP) 124/64 (84) Pulse Ox 95 O2 Delivery Room Air Capillary Refill : Less Than 3 Seconds I&O Intake and Output 07/12/19 00:00 Intake Total 1685 ml Output Total 550 ml Balance 1135 ml Intake Oral 685 ml IV Total 1000 ml Output Urine Total 550 ml # Voids 4 # Bowel Movements 1 General: Alert, Oriented X3, Cooperative HEENT: Atraumatic, PERRLA Neck: Supple, No JVD, No Thyromegaly Lungs: Clear to Auscultation, Normal Air Movement Heart: Regular Rate, Normal S1, Normal S2, Other Abdomen: Normal Bowel Sounds, Soft, No Tenderness, No Hepatosplenomegaly, No Masses Extremities: No Clubbing, No Cyanosis, Normal Pulses, No Tenderness/Swelling, Other (Peripheral edema) Skin: No Rashes, No Breakdown, No Significant Lesion Neuro: Normal Gait, Normal Speech, Strength at 5/5 X4 Ext, Normal Tone, Sensation Intact Psych/Mental Status: Mental Status NL, Mood NL Results Lab Laboratory Tests 07/12/19 02:55 A/P-Cardiology Admission Diagnosis Ventricular tachycardia Congestive heart failure Coronary artery disease Hypertension Assessment/Plan Syncope, ventricular tachycardia, status post dual-chamber ICD placement on July 11, [address] Forman Site is healing well. Recovering well. We'll interrogate ICD and okay for dis charge. Congestive heart failure, acute left ventricular systolic dysfunction, ischemic cardiomyopathy. Medical therapy is initiated. CAD with h/o CABG in the late . Cath of 07/10/19: prox occlusion of LAD, 50% mid LCX, moderately severe disease of prox RCA and ENROBER TENDER of distal RCA, ENROBER TENDER of SVG presumably to distal RCA, patent SVG to diag with up to 60% prox stenosis, paten t but atretic SANDERS to LAD, elevated LVEDP, LVEF approx 35%, dyskinesis of posterobasal wall, akinesis of diaphragmatic wall PAD. H/o AAA intervention, noncompliant with appointment, currently managed by Dr. Forman DM II Obesity with BMI approx 31 Noncompliance (apparently not following with any cardiologists for several years) Clinical Quality Measures AMI/AHF: ASA po Prior to arrival: Yes DVT/VTE Risk/Contraindication: Risk Factor Score Per Nursin RFS Level Per Nursing on Admit: 4+=Very High CELIA KELLY MD Jul 12, 2019 08:56 POS
[2019-07-12] MEDS: ASPIRIN 81 MG CHEW (CHILDREN'S ASA) PO SCH (08:58)
[2019-07-12] MEDS: ceFAZolin INJECTION 1,000 MG in WATER (STERILE) FOR INJECTION 10 ML IV SCH (08:59)
[2019-07-12] MEDS: SACUBITRIL/VALSARTAN 24/26 MG (ENTRESTO) TABLET PO SCH (08:59)
[2019-07-12] MEDS ORDERED: AMIODARONE 200 MG (CORDARONE) TAB PO SCH (09:00)
[2019-07-12] MEDS ORDERED: meTOproloL SUCCINATE 50 MG (TOPROL XL) TAB PO SCH (09:00)
[2019-07-12] MEDS: CLOPIDOGREL 75 MG (PLAVIX) TABLET PO SCH (09:00)
[2019-07-12 12:00] VITALS: BP 148/80
[2019-07-12] MEDS ORDERED: GLYB1.253 PO (12:00)
--- NOTE | 2019-07-12 12:01 | Discharge Summary ---
Discharge Summary Hospital Course Was the Problem List Reviewed?: Yes Problems/Dx: (1) AICD (automatic cardioverter/defibrillator) present (2) Ventricular tachycardia, incessant Status: Acute (3) Diabetes mellitus Hospital Course Date of Admission: Jul 08, 2019 at 13:07 Admission Diagnosis : Family Physician/Provider: Dex Beasley MD Date of Discharge: 07/12/19 Discharge Diagnosis: Ventricular tachycardia s/p cardioversion electrical, elevated troponin NSTEMI Type II, DM OOC hga1c 10.9, CAD, PVD Hospital Course: This is a 64-year-old white male who presented the [place] ER with palpitations not feeling well and 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 Patient underwent cardiac catheterization due to elevated troponin found to have no significant coronary artery stenosis. Patient underwent placement of a defibrillator in an uncomplicated manner. Patient will have close follow-up with cardiology considering the extensiveness of his heart disease and arrhythmia issues. His diabetes was out of control with hemoglobin A1c of 10.9 so started glyburide 1.25 mg twice daily. Labs and Pending Lab Test: Laboratory Tests 07/11/19 19:26: Glucometer 176H 07/12/19 02:55: White Blood Count 8.8, Red Blood Count 4.69, Hemoglobin 13.4, Hematocrit 41, Mean Corpuscular Volume 87, Mean Corpuscular Hemoglobin 29, Mean Corpuscular Hemoglobin Concent 33, Red Cell Distribution Width 12.9, Platelet Count 201, Mean Platelet Volume 11.4H, Sodium Level 138, Potassium Level 3.8, Chloride Level 106, Carbon Dioxide Level 20L, Anion Gap 12, Blood Urea Nitrogen 12, Creatinine 0.81, Estimat Glomerular Filtration Rate > 60, BUN/Creatinine Ratio 15, Glucose Level 151H, Calcium Level 8.7, Corrected Calcium 8.9, Phosphorus Level 3.1, Magnesium Level 1.8, Total Bilirubin 0.5, Aspartate Amino Transf (AST/SGOT) 18, Alanine Aminotransferase (ALT/SGPT) 15, Alkaline Phosphatase 44, Total Protein 6.5, Albumin 3.8 07/12/19 05:56: Glucometer 149H Microbiology 07/09/19 MRSA Screen - Final, Complete MRSA not isolated Home Meds Active Cefuroxime (Cefuroxime Axetil) 500 Mg Tablet 500 Mg PO BID Aspirin 81 Mg Tab.chew 81 Mg PO DAILY Entresto 24 mg-26 mg Tablet (Sacubitril/Valsartan) 1 Each Tablet 1 Tab PO BID Metoprolol Succinate 100 Mg Tab.er.24h 100 Mg PO DAILY Lipitor (Atorvastatin Calcium) 40 Mg Tablet 40 Mg PO HS Amiodarone HCl 200 Mg Tablet 400 Mg PO DAILY Clopidogrel (Clopidogrel Bisulfate) 75 Mg Tablet 75 Mg PO DAILY Reported Aleve (Naproxen Sodium) 220 Mg Tablet 220 Mg PO Q8H PRN Stool Softener (Docusate Sodium) 100 Mg Capsule 100 Mg PO BID Aspirin 325 Mg Tablet 325 Mg PO DAILY Metformin HCl 1,000 Mg Tablet 1,000 Mg PO BID Losartan Potassium 100 Mg Tablet 100 Mg PO HS Pravastatin Sodium 40 Mg Tablet 40 Mg PO HS Atenolol 25 Mg Tablet 25 Mg PO DAILY Januvia (Sitagliptin Phosphate) 100 Mg Tablet 100 Mg PO DAILY Citalopram HBr (Citalopram Hydrobromide) 20 Mg Tablet 20 Mg PO HS Assessment/Pt Instructions [facility] this week Discharge Planning: <30 minutes discharge planning Discharge Instructions Discharge Diet: ADA Diet, Cardiac Diet Activity as Tolerated: Yes Discharge Physical Examination Vital Signs Vital Signs Date Time Temp Pulse Resp B/P (MAP) Pulse Ox O2 Delivery O2 Flow Rate FiO2 07/12/19 08:00 36.1 72 20 127/74 (91) 91 Room Air 07/09/19 13:00 2.00 General Appearance: No Apparent Distress, WD/WN Respiratory: Chest Non Tender, Lungs Clear, Normal Breath Sounds, No Accessory Muscle Use, No Respiratory Distress Cardiovascular: Regular Rate, Rhythm, No Edema, No Gallop, No JVD, No Murmur, Normal Peripheral Pulses Neurologic/Psychiatric: Alert, Oriented x3, No Motor/Sensory Deficits, Normal Mood/Affect Allergies: Coded Allergies: No Known Drug Allergies (Unverified , 07/08/19) Discharge Summary Date of Admission Jul 08, 2019 at 13:07 Date of Discharge Discharge Date: Jul 12, 2019 Admission Diagnosis Assessment: s/p shock for Ventricular tachycardia CAD AAA s/p repair 2010 Plan: Appreciate Cardiology expertise Discharge Diagnosis Monitor new defib DC planned for soon (1) AICD (automatic cardioverter/defibrillator) present (2) Ventricular tachycardia, incessant Status: Acute (3) Diabetes mellitus Clinical Quality Measures AMI/AHF: ASA po Prior to arrival: Yes DVT/VTE Risk/Contraindication: Risk Factor Score Per Nursin RFS Level Per Nursing on Admit: 4+=Very High GUERA LAWSON DO Jul 12, 2019 12:01 POS
[2019-07-12 13:40] VITALS: BP 128/64
--- OUTSIDE RECORDS SUMMARY | 2019-08-02 16:03 | XMS REPORT | Continuity of Care Document ---
Author Organization Unknown Address Unknown Phone Unavailable Allergies Active Description Code Type Severity Reaction Onset Reported/Identified Relationship to Patient Clinical Status Yes No Known Drug Allergies [id number] Drug Allergy Unknown N/A 07/08/2019 Medications There is no data. Problems Date Dx Coded Attending Type Code Diagnosis Diagnosed By 07/12/2019 GUERA LAWSON DO Ot E11.51 TYPE 2 DIABETES W DIABETIC PERIPHERAL AN 07/12/2019 RENNY ANDREW GUERA Ot E66.9 OBESITY, UNSPECIFIED 07/12/2019 RENNY ANDREW GUERA Ot E78.00 PURE HYPERCHOLESTEROLEMIA, UNSPECIFIED 07/12/2019 RENNY ANDREW GUERA Ot E78.5 HYPERLIPIDEMIA, UNSPECIFIED 07/12/2019 RENNY ANDREW GUERA Ot G47.33 OBSTRUCTIVE SLEEP APNEA (ADULT) (PEDIATR 07/12/2019 RENNY ANDREW GUERA Ot I11.0 HYPERTENSIVE HEART DISEASE WITH HEART FA 07/12/2019 RENNY ANDREW GUERA Ot I21.A1 MYOCARDIAL INFARCTION TYPE 2 07/12/2019 RENNY ANDREW GUERA Ot I25.10 ATHSCL HEART DISEASE OF [place] CORONARY 07/12/2019 RENNY ANDREW GUERA Ot I25.2 OLD MYOCARDIAL INFARCTION 07/12/2019 RENNY ANDREW GUERA Ot I25.5 ISCHEMIC CARDIOMYOPATHY 07/12/2019 RENNY ANDREW GUERA Ot 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 07/12/2019 RENNY ANDREW GUERA Ot I47.2 VENTRICULAR TACHYCARDIA 07/12/2019 RENNY ANDREW GUERA Ot I50.21 ACUTE SYSTOLIC (CONGESTIVE) HEART FAILUR 07/12/2019 RENNY ANDREW GUERA Ot I95.9 HYPOTENSION, UNSPECIFIED 07/12/2019 RENNY ANDREW GUERA Ot K59.09 OTHER CONSTIPATION 07/12/2019 RENNY ANDREW GUERA Ot Z68.31 BODY MASS INDEX (BMI) 31.0-31.9, ADULT 07/12/2019 RENNY ANDREW GUERA Ot 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 07/12/2019 GUERA LAWSON DO, Ot Z91.19 PATIENT'S NONCOMPLIANCE W OT MEDICAL TR 07/12/2019 GUERA ALWSON DO, Ot Z95.1 PRESENCE OF AORTOCORONARY BYPASS GRAFT Procedures Code Description Performed By Per regla On [id number] RE STORATION OF CARDIAC RHYTHM, SINGLE 07/08/2019 [id number] ME ASURE OF CARDIAC SAMPL PRESSURE, L H 07/10/2019 [id number] FL UOROSCOPY OF MULT COR ART USING L OSM 07/10/2019 [id number] FL UOROSCOPY OF MULT COR A GRAFT USING L 07/10/2019 [id number] FL UOROSCOPY OF LEFT HEART USING LOW OSMO 07/10/2019 [id number] FL UOROSCOPY OF L INT MAMM GRAFT USING L 07/10/2019 [id number] IN SERTION OF DEFIBRILLATOR LEAD INTO R A 07/11/2019 [id number] IN SERTION OF DEFIB LEAD INTO R VENTRICLE 07/11/2019 [id number] IN SERT OF DEFIB GEN INTO CHEST SUBCU/FAS 07/11/2019 Results Test Result Range MICROALBUMIN/CREATININE RATIO, URINE - 0 10/31/18 12:36 CREATININE, RANDOM URINE 140 mg/dL 20-32 0 MICROALBUMIN 6.8 mg/dL See Note: MICROALBUMIN/CREATININE RATIO, RANDOM URINE 49 mcg /mg creat <30 A1C - 03/06/19 09:56 HEMOGLOBIN A1c 9.2 % of total Hgb <5.7 Complete blood count (CBC) with automate d white blood cell (WBC) differential - 07/08/19 11:40 Blood leukocytes automated count (number/volume) 15.4 10*3/uL 4.3-11.0 Blood erythrocytes automated count (number/volume) 5.39 10*6/uL 4.35-5.85 Venous blood hemoglobin measurement (mass/volume) 15.3 g/dL 13.3-17.7 Blood hematocrit (volume fraction) 48 % 40-54 Automated erythrocyte mean corpuscular volume 88 [ foz_us] 80-99 Automated erythrocyte mean corpuscular h emoglobin (mass per erythrocyte) 28 pg 25-34 Automated erythrocyte mean corpuscular h emoglobin concentration measurement (mass/volume) 32 g/dL 32-36 Automated erythrocyte distribution width ratio 12. 4 % 10.0- 14.5 Automated blood platelet count (count/volume) 315 10*3/uL 130-400 Automated blood platelet mean volume measurement 11.1 [foz_us] 7.4-10.4 Automated blood neutrophils/100 leukocytes 69 % 42-75 Automated blood lymphocytes/100 leukocytes 20 % 12-44 Blood monocytes/100 leukocytes 9 % 0-12 Automated blood eosinophils/100 leukocytes 1 % 0-10 Automated blood basophils/100 leukocytes 1 % 0-10 Blood neutrophils automated count (number/volume) 10.6 10*3 1.8-7.8 Blood lymphocytes automated count (number/volume) 3.0 10*3 1.0-4.0 Blood monocytes automated count (number/volume) 1. 4 10*3 0.0-1.0 Automated eosinophil count 0.2 10*3/uL 0 .0-0.3 Automated blood basophil count (count/volume) 0.2 10*3/uL 0.0-0.1 Manual absolute plasma cell count - 10/22 11:40 Blood monocytes/100 leukocytes 9 % NRG Manual blood segmented neutrophils/100 leukocytes 64 % NRG Blood band neutrophils/100 leukocytes 3 % NRG Manual blood lymphocytes/100 leukocytes 21 % NRG Manual blood basophils/100 leukocytes 1 % NRG Blood lymphocytes variant/100 leukocytes 2 % NRG Blood erythrocyte morphology finding identification NORMAL NRG PT panel in platelet poor plasma by coag ulation assay - 07/08/19 11:40 Prothrombin time (PT) in platelet poor plasma by coagu lation assay 12.6 s 12.2-14.7 INR in platelet poor plasma or blood by coagulation as say 0.9 0.8-1.4 Activated partial thromboplastin time (a PTT) in platelet poor plasma bycoagulation assay - 07/08/19 11:40 Activated partial thromboplastin time (a PTT) in platelet poor plasma bycoagulation assay 26 s 24-35 TROPONIN I FS - 07/08/19 11:40 TROPONIN I FS < 0.30 <0.30 Comprehensive metabolic panel - 07/08/19 11:40 Serum or plasma sodium measurement (moles/volume) 134 mmol/L 135-145 Serum or plasma potassium measurement (moles/volume) 4.8 mmol/L 3.6-5.0 Serum or plasma chloride measurement (moles/volume) 98 mmol/L 98-107 Carbon dioxide 21 mmol/L 21-32 Serum or plasma anion gap determination (moles/volume) 15 mmol/L 5-14 Serum or plasma urea nitrogen measurement (mass/volume ) 20 mg/dL 7-18 Serum or plasma creatinine measurement (mass/volume) 0.93 mg/dL 0.60-1.30 Serum or plasma urea nitrogen/creatinine mass ratio 22 NRG Serum or plasma creatinine measurement w ith calculation of estimated glomerular filtration rate > NRG Serum or plasma glucose measurement (mass/volume) 309 mg/dL 70-105 Serum or plasma calcium measurement (mass/volume) 10.2 mg/dL 8.5-10.1 Serum or plasma total bilirubin measurement (mass/volu me) 0.3 mg/dL 0.1-1.0 Serum or plasma alkaline phosphatase bela surement (enzymatic activity/volume) 81 U/L 40-136 Serum or plasma aspartate aminotransfera se measurement (enzymatic activity/volume) 29 U/L 5-34 Serum or plasma alanine aminotransferase measurement (enzymatic activity/volume) 35 U/L 0-55 Serum or plasma protein measurement (mass/volume) 7.5 g/dL 6.4-8.2 Serum or plasma albumin measurement (mass/volume) 4.5 g/dL 3.2-4.5 CALCIUM CORRECTED 9.8 mg/dL 8.5-10.1 Magnesium - 07/08/19 11:40 Magnesium 1.8 mg/dL 1.6-2.4 Myoglobin, serum - 07/08/19 11:40 Myoglobin, serum 65.6 ng/mL 10.0-92.0 Capillary blood glucose measurement by g lucometer (mass/volume) - 07/08/19 20:35 Capillary blood glucose measurement by glucometer (mas s/volume) 257 mg/dL 70-110 Complete blood count (CBC) with automate d white blood cell (WBC) differential - 07/09/19 03:30 Blood leukocytes automated count (number/volume) 10.4 10*3/uL 4.3-11.0 Blood erythrocytes automated count (number/volume) 4.46 10*6/uL 4.35-5.85 Venous blood hemoglobin measurement (mass/volume) 12.9 g/dL 13.3-17.7 Blood hematocrit (volume fraction) 40 % 40-54 Automated erythrocyte mean corpuscular volume 89 [ foz_us] 80-99 Automated erythrocyte mean corpuscular h emoglobin (mass per erythrocyte) 29 pg 25-34 Automated erythrocyte mean corpuscular h emoglobin concentration measurement (mass/volume) 33 g/dL 32-36 Automated erythrocyte distribution width ratio 12. 9 % 10.0- 14.5 Automated blood platelet count (count/volume) 229 10*3/uL 130-400 Automated blood platelet mean volume measurement 11.3 [foz_us] 7.4-10.4 Automated blood neutrophils/100 leukocytes 64 % 42-75 Automated blood lymphocytes/100 leukocytes 23 % 12-44 Blood monocytes/100 leukocytes 11 % 0-12 Automated blood eosinophils/100 leukocytes 2 % 0-10 Automated blood basophils/100 leukocytes 1 % 0-10 Blood neutrophils automated count (number/volume) 6.6 10*3 1.8-7.8 Blood lymphocytes automated count (number/volume) 2.4 10*3 1.0-4.0 Blood monocytes automated count (number/volume) 1. 1 10*3 0.0-1.0 Automated eosinophil count 0.2 10*3/uL 0 .0-0.3 Automated blood basophil count (count/volume) 0.1 10*3/uL 0.0-0.1 Comprehensive metabolic panel - 07/09/19 03:30 Serum or plasma sodium measurement (moles/volume) 137 mmol/L 135-145 Serum or plasma potassium measurement (moles/volume) 4.4 mmol/L 3.6-5.0 Serum or plasma chloride measurement (moles/volume) 107 mmol/L 98-107 Carbon dioxide 19 mmol/L 21-32 Serum or plasma anion gap determination (moles/volume) 11 mmol/L 5-14 Serum or plasma urea nitrogen measurement (mass/volume ) 16 mg/dL 7-18 Serum or plasma creatinine measurement (mass/volume) 0.93 mg/dL 0.60-1.30 Serum or plasma urea nitrogen/creatinine mass ratio 17 NRG Serum or plasma creatinine measurement w ith calculation of estimated glomerular filtration rate > NRG Serum or plasma glucose measurement (mass/volume) 196 mg/dL 70-105 Serum or plasma calcium measurement (mass/volume) 8.5 mg/dL 8.5-10.1 Serum or plasma total bilirubin measurement (mass/volu me) 0.3 mg/dL 0.1-1.0 Serum or plasma alkaline phosphatase bela surement (enzymatic activity/volume) 48 U/L 40-136 Serum or plasma aspartate aminotransfera se measurement (enzymatic activity/volume) 34 U/L 5-34 Serum or plasma alanine aminotransferase measurement (enzymatic activity/volume) 25 U/L 0-55 Serum or plasma protein measurement (mass/volume) 5.7 g/dL 6.4-8.2 Serum or plasma albumin measurement (mass/volume) 3.6 g/dL 3.2-4.5 CALCIUM CORRECTED 8.8 mg/dL 8.5-10.1 Magnesium - 07/09/19 03:30 Magnesium 2.0 mg/dL 1.6-2.4 Lipid 1996 panel - 07/09/19 03:30 Serum or plasma triglyceride measurement (mass/volume) 230 mg/dL <150 Serum or plasma cholesterol measurement (mass/volume) 116 mg/dL < 200 Serum or plasma cholesterol in HDL measurement (mass/v olume) 21 mg/dL 40-60 Cholesterol in LDL [mass/volume] in serum or plasma by direct assay 79 mg/dL 1-129 Serum or plasma cholesterol in VLDL measurement (mass/ volume) 46 mg/dL 5-40 THYROID STIMULATING HORMONE - 07/09/19 0 3:30 THYROID STIMULATING HORMONE 0.78 u[iU]/mL 0.35-4.94 Hemoglobin A1c measurement - 07/09/19 03 :30 Blood hemoglobin A1C measurement (mass/volume) 10. 9 % 4.0- 5.6 MEAN BLOOD GLUCOSE 266 % <=126 Serum or plasma troponin i.cardiac measu rement (mass/volume) - 07/09/19 09:00 Serum or plasma troponin i.cardiac measurement (mass/v olume) 4.179 ng/mL <0.028 Capillary blood glucose measurement by g lucometer (mass/volume) - 07/09/19 09:56 Capillary blood glucose measurement by glucometer (mas s/volume) 263 mg/dL 70-110 Methicillin resistant Staphylococcus aur eus (MRSA) screening culture - 07/09/19 16:27 Methicillin resistant Staphylococcus aureus (MRSA) scr eening culture NEG NRG Capillary blood glucose measurement by g lucometer (mass/volume) - 07/09/19 17:00 Capillary blood glucose measurement by glucometer (mas s/volume) 143 mg/dL 70-110 Serum or plasma troponin i.cardiac measu rement (mass/volume) - 07/09/19 17:14 Serum or plasma troponin i.cardiac measurement (mass/v olume) 3.124 ng/mL <0.028 Capillary blood glucose measurement by g lucometer (mass/volume) - 07/09/19 19:42 Capillary blood glucose measurement by glucometer (mas s/volume) 219 mg/dL 70-110 Automated blood complete blood count (he mogram) panel - 07/10/19 03:05 Blood leukocytes automated count (number/volume) 9.6 10*3/uL 4.3-11.0 Blood erythrocytes automated count (number/volume) 4.42 10*6/uL 4.35-5.85 Venous blood hemoglobin measurement (mass/volume) 12.8 g/dL 13.3-17.7 Blood hematocrit (volume fraction) 39 % 40-54 Automated erythrocyte mean corpuscular volume 89 [ foz_us] 80-99 Automated erythrocyte mean corpuscular h emoglobin (mass per erythrocyte) 29 pg 25-34 Automated erythrocyte mean corpuscular h emoglobin concentration measurement (mass/volume) 33 g/dL 32-36 Automated erythrocyte distribution width ratio 12. 8 % 10.0- 14.5 Automated blood platelet count (count/volume) 187 10*3/uL 130-400 Automated blood platelet mean volume measurement 11.3 [foz_us] 7.4-10.4 Whole blood basic metabolic panel - 12/22 03:05 Serum or plasma sodium measurement (moles/volume) 139 mmol/L 135-145 Serum or plasma potassium measurement (moles/volume) 4.1 mmol/L 3.6-5.0 Serum or plasma chloride measurement (moles/volume) 109 mmol/L 98-107 Carbon dioxide 20 mmol/L 21-32 Serum or plasma anion gap determination (moles/volume) 10 mmol/L 5-14 Serum or plasma urea nitrogen measurement (mass/volume ) 14 mg/dL 7-18 Serum or plasma creatinine measurement (mass/volume) 0.88 mg/dL 0.60-1.30 Serum or plasma urea nitrogen/creatinine mass ratio 16 NRG Serum or plasma creatinine measurement w ith calculation of estimated glomerular filtration rate > NRG Serum or plasma glucose measurement (mass/volume) 175 mg/dL 70-105 Serum or plasma calcium measurement (mass/volume) 8.3 mg/dL 8.5-10.1 Serum or plasma phosphate measurement (m ass/volume) - 07/10/19 03:05 Serum or plasma phosphate measurement (mass/volume) 2.6 mg/dL 2.3-4.7 Magnesium - 07/10/19 03:05 Magnesium 1.8 mg/dL 1.6-2.4 Capillary blood glucose measurement by g lucometer (mass/volume) - 07/10/19 14:30 Capillary blood glucose measurement by glucometer (mas s/volume) 225 mg/dL 70-110 Capillary blood glucose measurement by g lucometer (mass/volume) - 07/10/19 19:51 Capillary blood glucose measurement by glucometer (mas s/volume) 183 mg/dL 70-110 Automated blood complete blood count (he mogram) panel - 07/11/19 04:15 Blood leukocytes automated count (number/volume) 8.1 10*3/uL 4.3-11.0 Blood erythrocytes automated count (number/volume) 4.48 10*6/uL 4.35-5.85 Venous blood hemoglobin measurement (mass/volume) 12.8 g/dL 13.3-17.7 Blood hematocrit (volume fraction) 40 % 40-54 Automated erythrocyte mean corpuscular volume 88 [ foz_us] 80-99 Automated erythrocyte mean corpuscular h emoglobin (mass per erythrocyte) 29 pg 25-34 Automated erythrocyte mean corpuscular h emoglobin concentration measurement (mass/volume) 32 g/dL 32-36 Automated erythrocyte distribution width ratio 12. 7 % 10.0- 14.5 Automated blood platelet count (count/volume) 187 10*3/uL 130-400 Automated blood platelet mean volume measurement 11.0 [foz_us] 7.4-10.4 Whole blood basic metabolic panel - 01/22 04:15 Serum or plasma sodium measurement (moles/volume) 139 mmol/L 135-145 Serum or plasma potassium measurement (moles/volume) 3.8 mmol/L 3.6-5.0 Serum or plasma chloride measurement (moles/volume) 108 mmol/L 98-107 Carbon dioxide 20 mmol/L 21-32 Serum or plasma anion gap determination (moles/volume) 11 mmol/L 5-14 Serum or plasma urea nitrogen measurement (mass/volume ) 12 mg/dL 7-18 Serum or plasma creatinine measurement (mass/volume) 0.80 mg/dL 0.60-1.30 Serum or plasma urea nitrogen/creatinine mass ratio 15 NRG Serum or plasma creatinine measurement w ith calculation of estimated glomerular filtration rate > NRG Serum or plasma glucose measurement (mass/volume) 168 mg/dL 70-105 Serum or plasma calcium measurement (mass/volume) 8.3 mg/dL 8.5-10.1 Serum or plasma phosphate measurement (m ass/volume) - 07/11/19 04:15 Serum or plasma phosphate measurement (mass/volume) 2.5 mg/dL 2.3-4.7 Magnesium - 07/11/19 04:15 Magnesium 1.8 mg/dL 1.6-2.4 Capillary blood glucose measurement by g lucometer (mass/volume) - 07/11/19 19:26 Capillary blood glucose measurement by glucometer (mas s/volume) 176 mg/dL 70-110 Automated blood complete blood count (he mogram) panel - 07/12/19 02:55 Blood leukocytes automated count (number/volume) 8.8 10*3/uL 4.3-11.0 Blood erythrocytes automated count (number/volume) 4.69 10*6/uL 4.35-5.85 Venous blood hemoglobin measurement (mass/volume) 13.4 g/dL 13.3-17.7 Blood hematocrit (volume fraction) 41 % 40-54 Automated erythrocyte mean corpuscular volume 87 [ foz_us] 80-99 Automated erythrocyte mean corpuscular h emoglobin (mass per erythrocyte) 29 pg 25-34 Automated erythrocyte mean corpuscular h emoglobin concentration measurement (mass/volume) 33 g/dL 32-36 Automated erythrocyte distribution width ratio 12. 9 % 10.0- 14.5 Automated blood platelet count (count/volume) 201 10*3/uL 130-400 Automated blood platelet mean volume measurement 11.4 [foz_us] 7.4-10.4 Comprehensive metabolic panel - 07/12/19 02:55 Serum or plasma sodium measurement (moles/volume) 138 mmol/L 135-145 Serum or plasma potassium measurement (moles/volume) 3.8 mmol/L 3.6-5.0 Serum or plasma chloride measurement (moles/volume) 106 mmol/L 98-107 Carbon dioxide 20 mmol/L 21-32 Serum or plasma anion gap determination (moles/volume) 12 mmol/L 5-14 Serum or plasma urea nitrogen measurement (mass/volume ) 12 mg/dL 7-18 Serum or plasma creatinine measurement (mass/volume) 0.81 mg/dL 0.60-1.30 Serum or plasma urea nitrogen/creatinine mass ratio 15 NRG Serum or plasma creatinine measurement w ith calculation of estimated glomerular filtration rate > NRG Serum or plasma glucose measurement (mass/volume) 151 mg/dL 70-105 Serum or plasma calcium measurement (mass/volume) 8.7 mg/dL 8.5-10.1 Serum or plasma total bilirubin measurement (mass/volu me) 0.5 mg/dL 0.1-1.0 Serum or plasma alkaline phosphatase bela surement (enzymatic activity/volume) 44 U/L 40-136 Serum or plasma aspartate aminotransfera se measurement (enzymatic activity/volume) 18 U/L 5-34 Serum or plasma alanine aminotransferase measurement (enzymatic activity/volume) 15 U/L 0-55 Serum or plasma protein measurement (mass/volume) 6.5 g/dL 6.4-8.2 Serum or plasma albumin measurement (mass/volume) 3.8 g/dL 3.2-4.5 CALCIUM CORRECTED 8.9 mg/dL 8.5-10.1 Serum or plasma phosphate measurement (m ass/volume) - 07/12/19 02:55 Serum or plasma phosphate measurement (mass/volume) 3.1 mg/dL 2.3-4.7 Magnesium - 07/12/19 02:55 Magnesium 1.8 mg/dL 1.6-2.4 Capillary blood glucose measurement by g lucometer (mass/volume) - 07/12/19 05:56 Capillary blood glucose measurement by glucometer (mas s/volume) 149 mg/dL 70-110 Encounters ACCT No. Visit Date/Time Discharge Status Pt. Type Provider Facility Loc./Unit Complaint [id number] 03/06/2019 10:45:00 03/06/2019 23:59: 59 [facility] Outpatient SHIRA GOMEZ [facility] [id number] 03/06/2019 10:45:00 Document Registration [id number] 10/31/2018 12:00:00 Document Registration [id number] 07/08/2019 13:07:00 13:45:00 DIS Outpatient GUERA LAWSON DO [facility] C[facility] PERSISTANT V-TACH
--- OUTSIDE RECORDS SUMMARY | 2019-08-02 19:57 | XMS REPORT | Continuity of Care Document ---
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 07/12/2019 GUERA LAWSON DO, Ot Z91.19 PATIENT'S NONCOMPLIANCE W OT MEDICAL TR 07/12/2019 GUERA LAWSON DO, Ot Z95.1 PRESENCE OF AORTOCORONARY BYPASS GRAFT Procedures Code Description Performed By Per regla On [id number] RE STORATION OF CARDIAC RHYTHM, SINGLE 07/08/2019 [id number] ME ASURE OF CARDIAC SAMPL PRESSURE, L H 07/10/2019 [id number] FL UOROSCOPY OF MULT COR ART USING L OSM 07/10/2019 [id number] FL UOROSCOPY OF MULT COR A GRAFT USING L 07/10/2019 [id number] FL UOROSCOPY OF LEFT HEART USING LOW OSMO 07/10/2019 [id number] FL UOROSCOPY OF L INT MAMM GRAFT USING L 07/10/2019 [id number] IN SERTION OF DEFIBRILLATOR LEAD INTO R A 07/11/2019 [id number] IN SERTION OF DEFIB LEAD INTO R VENTRICLE 07/11/2019 [id number] IN SERT OF DEFIB GEN INTO CHEST [...] Status Pt. Type Provider Facility Loc./Unit Complaint [id number] 03/06/2019 10:45:00 03/06/2019 23:59: 59 [facility] Outpatient SHIRA GOMEZ [facility] [id number] 03/06/2019 10:45:00 Document Registration [id number] 10/31/2018 12:00:00 Document Registration [id number] 07/08/2019 13:07:00 13:45:00 DIS Outpatient GUERA LAWSON DO [facility] CSD PERSISTANT V-TACH
== END 2019-07-12 13:45 | disposition home or self-care (01) | DRG 224 ==
LOC: EDUNIT# 11:29 → ER FS 11:30 → ICU 13:07 → CSD 07-10 18:01
PROVIDERS: ADMIT Internal Medicine; ATTEND Internal Medicine
PROC: 5A2204Z Restoration of Cardiac Rhythm, Single (ICD-10-PCS; 2019-07-08)
PROC: 4A023N7 Measurement of Cardiac Sampling and Pressure, Left Heart, Percutaneous Approach (ICD-10-PCS; 2019-07-10)
PROC: B2111ZZ Fluoroscopy of Multiple Coronary Arteries using Low Osmolar Contrast (ICD-10-PCS; 2019-07-10)
PROC: B2181ZZ Fluoroscopy of Left Internal Mammary Bypass Graft using Low Osmolar Contrast (ICD-10-PCS; 2019-07-10)
PROC: B2131ZZ Fluoroscopy of Multiple Coronary Artery Bypass Grafts using Low Osmolar Contrast (ICD-10-PCS; 2019-07-10)
PROC: B2151ZZ Fluoroscopy of Left Heart using Low Osmolar Contrast (ICD-10-PCS; 2019-07-10)
PROC: 0JH608Z Insertion of Defibrillator Generator into Chest Subcutaneous Tissue and Fascia, Open Approach (ICD-10-PCS; principal; 2019-07-11)
PROC: 02HK3KZ Insertion of Defibrillator Lead into Right Ventricle, Percutaneous Approach (ICD-10-PCS; 2019-07-11)
PROC: 02H63KZ Insertion of Defibrillator Lead into Right Atrium, Percutaneous Approach (ICD-10-PCS; 2019-07-11)
DX: I47.2 Ventricular tachycardia (principal); I21.A1 Myocardial infarction type 2; I50.21 Acute systolic (congestive) heart failure; E11.51 Type 2 diabetes mellitus with diabetic peripheral angiopathy without gangrene; I25.10 Atherosclerotic heart disease of native coronary artery without angina pectoris; E78.00 Pure hypercholesterolemia, unspecified; E66.9 Obesity, unspecified; K59.09 Other constipation; I25.5 Ischemic cardiomyopathy; I11.0 Hypertensive heart disease with heart failure; I25.82 Chronic total occlusion of coronary artery; E78.5 Hyperlipidemia, unspecified; I95.9 Hypotension, unspecified; G47.33 Obstructive sleep apnea (adult) (pediatric); Z68.31 Body mass index [BMI] 31.0-31.9, adult; I25.2 Old myocardial infarction; Z95.1 Presence of aortocoronary bypass graft; Z91.19 Patient's noncompliance with other medical treatment and regimen; Z79.82 Long term (current) use of aspirin
CPT/HCPCS: 33249; 36415; 71045; 71046; 80048; 80053; 80061; 82962; 83036; 83735; 83874; 84100; 84443; 84484; 85007; 85025; 85027; 85610; 85730; 87081; 93005; 93041; 93459; 96361; 96365; 96372; 96375

== ENCOUNTER → 2020-02-16 | Outpatient (CLI) | payer MEDICARE ==
[~2020-02-16] MED LIST: AMIO200T4 PO; ASPI-808 PO; ASPI-983 PO; ASPI-999 PO; ATEN25TA PO; ATOR40TA PO; CEFU500T63 PO; CITA20TA9 PO; CLOP75TA28 PO; DOCU-238 PO; GLYB1.253 PO; LOSA100T57 PO; METF-399 PO; MTP100TCR PO; NAPR220T66 PO; PRAV40TA2 PO; SACU1TAB2 PO; SITA100T12 PO
--- NOTE | 2020-02-16 13:30 | Diagnostic Imaging Report ---
INDICATION: Shoulder pain COMPARISON: None. FINDINGS: 3 views of the right shoulder were obtained. There is no fracture, dislocation, or other acute bony abnormality identified. There is moderate narrowing of the acromiohumeral joint space. The soft tissues appear unremarkable. No radiopaque foreign bodies identified. The visualized portions of the right lung are clear. IMPRESSION: 1. No acute fractures or dislocations of the right shoulder. 2. Moderate narrowing of the acromiohumeral joint space. Findings can be seen with underlying chronic rotator cuff tear. Dictated by: Dictated on workstation # [id number]
== END ==
LOC: LAB FS 13:10
PROVIDERS: ATTEND Nurse Practitioner
DX: M25.511 Pain in right shoulder (principal)
CPT/HCPCS: 73030

== ENCOUNTER 2021-02-15 11:00 | Emergency (ER) | payer MEDICARE ==
[~2021-02-15] VITALS: Ht 175.2 cm; Wt 97.0 kg
[~2021-02-15 11:00] MED LIST changes: -AMIO200T4 PO; +AMIO200T6 PO; +ASPI-1238 PO; -ASPI-983 PO; -DOCU-238 PO; +DOCU-26 PO
--- NOTE | 2021-02-15 11:25 | ED General ---
General Chief Complaint: General Problems/Pain Stated Complaint: LT GROIN PAIN Nursing Triage Note: PT TO ED IN WHEELCHAIR. PT C/O L GROIN PAIN THAT BEGAN SUNDAY A WEEK AGO. PT REPORTS NOT BEING ABLE TO TAKE MORE THAN 20 STEPS NOW. PT DENIES INJURY. Source of Information: Patient History of Present Illness Date Seen by Provider: Feb 15, 2021 Time Seen by Provider: 11:04 Initial Comments 65 yo male presents with complaint of left groing pain since sunday of last week. He has no trauma to the area. He denies any swelling to the area. He does have history of abdominal aortic aneurysm that was repaired previously and had some pain similar to this prior to the aneurysm being repaired. He has appointment to see Dr. Tobin no need but because he was having increasing weakness and difficulty walking more than 20 steps his family had him come to the emergency department. He denies any fever or chills. He has symptoms that are worsened by walking and movement but nothing seems to improve the pain. He denies having any numbness, tingling to his legs. Timing/Duration: Other (over 9 days of symptoms) Severity: Severe Modifying Factors: worse with Movement Associated Systoms: No Chest Pain, No Cough, No Diaphoresis, No Fever/Chills, No Headaches, No Loss of Appetite; Malaise; No Nausea/Vomiting, No Rash, No Seizure, No Shortness of Air, No Syncope, No Weakness Allergies and Home Medications Allergies Coded Allergies: No Known Drug Allergies (Unverified , 07/08/19) Home Medications Amiodarone HCl 200 Mg Tablet, 400 MG PO DAILY Prescribed by: GORDON MAYFIELD on 07/11/19 120 Aspirin 81 Mg Tab.chew, 81 MG PO DAILY Prescribed by: GORDON MAYFIELD on 07/11/19 120 Atorvastatin Calcium 40 Mg Tablet, 40 MG PO HS Prescribed by: GORDON MAYFIELD on 07/11/19 120 Cefuroxime Axetil 500 Mg Tablet, 500 MG PO BID Prescribed by: GORDON MAYFIELD on 07/11/19 120 Citalopram Hydrobromide 20 Mg Tablet, 20 MG PO HS, (Reported) Clopidogrel Bisulfate 75 Mg Tablet, 75 MG PO DAILY Prescribed by: GORDON MAYFIELD on 07/11/19 120 Docusate Sodium 100 Mg Capsule, 100 MG PO BID, (Reported) Glyburide 1.25 Mg Tablet, 1.25 MG PO BID Prescribed by: GUERA LAWSON on 07/12/19 1200 Hydrocodone/Acetaminophen 1 Each Tablet, 1 TAB PO Q6H PRN for PAIN-SEVERE (8-10) Prescribed by: DAJA SANDOVAL on 02/15/21 1307 Metoprolol Succinate 100 Mg Tab.er.24h, 100 MG PO DAILY Prescribed by: GORDON MAYFIELD on 07/11/19 1202 Sacubitril/Valsartan 1 Each Tablet, 1 TAB PO BID Prescribed by: GORDON MAYFIELD on 07/11/19 1202 Sitagliptin Phosphate 100 Mg Tablet, 100 MG PO DAILY, (Reported) Patient Home Medication List Home Medication List Reviewed: Yes Review of Systems Review of Systems Constitutional: No chills, No fever EENTM: no symptoms reported Respiratory: no symptoms reported Cardiovascular: no symptoms reported Gastrointestinal: no symptoms reported Genitourinary: no symptoms reported Musculoskeletal: see HPI Skin: No change in color, No rash Psychiatric/Neurological: Denies Numbness; Weakness (general) Hematologic/Lymphatic: Denies Blood Clots Past Bjlvnho-Hgzwgv-Gsryow Hx Patient Social History Tobacco Use?: No Substance use?: No Alcohol Use?: Yes Alcohol Frequency: Rarely Immunizations Up To Date Second COVID19 Vaccination Davion: 11/2020 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 oz. kg; 31.00 BMI Method: General Appearance: No Apparent Distress, Chronically ill Neck: Full Range of Motion, Supple Respiratory: Chest Non Tender, Lungs Clear, Normal Breath Sounds, No Accessory Muscle Use, No Respiratory Distress Cardiovascular: Regular Rate, Rhythm, Normal Peripheral Pulses Gastrointestinal: Normal Bowel Sounds, No Pulsatile Mass, Non Tender, Soft Rectal: Deferred Genital/Rectal: Other (examined while standing and while laying down. He had no definite bulging for an inguinal hernia. 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 Norm as Tested Skin: Warm/Dry, Pallor Progress/Results/Core Measures Suspected Sepsis SIRS Temperature: Pulse: 68 Respiratory Rate: 18 Laboratory Tests 02/15/21 11:15: White Blood Count 10.6 Blood Pressure / Mean: Laboratory Tests 02/15/21 11:15: Creatinine 0.83, INR Comment 0.9, Platelet Count 278, Total Bilirubin 0.3 Results/Orders Lab Results Laboratory Tests Test 02/15/21 11:15 02/15/21 11:50 Range/Units White Blood Count 10.6 4.3-11.0 10^3/uL Red Blood Count 5.28 4.35-5.85 10^6/uL Hemoglobin 15.6 13.3-17.7 G/DL Hematocrit 47 40-54 % Mean Corpuscular Volume 89 80-99 FL Mean Corpuscular Hemoglobin 30 25-34 PG Mean Corpuscular Hemoglobin Concent 33 32-36 G/DL Red Cell Distribution Width 13.2 10.0-14.5 % Platelet Count 278 130-400 10^3/uL Mean Platelet Volume 10.2 7.4-10.4 FL Immature Granulocyte % (Auto) 0 % Neutrophils (%) (Auto) 73 42-75 % Lymphocytes (%) (Auto) 16 12-44 % Monocytes (%) (Auto) 10 0-12 % Eosinophils (%) (Auto) 1 0-10 % Basophils (%) (Auto) 1 0-10 % Neutrophils # (Auto) 7.7 1.8-7.8 X 10^3 Lymphocytes # (Auto) 1.7 1.0-4.0 X 10^3 Monocytes # (Auto) 1.0 0.0-1.0 X 10^3 Eosinophils # (Auto) 0.1 0.0-0.3 10^3/uL Basophils # (Auto) 0.1 0.0-0.1 10^3/uL Immature Granulocyte # (Auto) 0.0 0.0-0.1 10^3/uL Prothrombin Time 12.6 12.2-14.7 SEC INR Comment 0.9 0.8-1.4 Activated Partial Thromboplast Time 26 24-35 SEC Sodium Level 138 135-145 MMOL/L Potassium Level 4.4 3.6-5.0 MMOL/L Chloride Level 102 98-107 MMOL/L Carbon Dioxide Level 26 21-32 MMOL/L Anion Gap 10 5-14 MMOL/L Blood Urea Nitrogen 19 H 7-18 MG/DL Creatinine 0.83 0.60-1.30 MG/DL Estimat Glomerular Filtration Rate > 60 BUN/Creatinine Ratio 23 Glucose Level 115 H 70-105 MG/DL Calcium Level 9.8 8.5-10.1 MG/DL Corrected Calcium 9.4 8.5-10.1 MG/DL Total Bilirubin 0.3 0.1-1.0 MG/DL Aspartate Amino Transf (AST/SGOT) 16 5-34 U/L Alanine Aminotransferase (ALT/SGPT) 17 0-55 U/L Alkaline Phosphatase 60 40-136 U/L Total Protein 7.3 6.4-8.2 GM/DL Albumin 4.5 3.2-4.5 GM/DL Urine Color YELLOW Urine Clarity SL CLOUDY Urine pH 6.0 5-9 Urine Specific [place] >=1.030 1.016-1.022 Urine Protein 2+ H NEGATIVE Urine Glucose (UA) NEGATIVE NEGATIVE Urine Ketones NEGATIVE NEGATIVE Urine Nitrite NEGATIVE NEGATIVE Urine Bilirubin NEGATIVE NEGATIVE Urine Urobilinogen 1.0 < = 1.0 MG/DL Urine Leukocyte Esterase NEGATIVE NEGATIVE Urine RBC (Auto) TRACE-I NEGATIVE Urine RBC 0-2 /HPF Urine WBC NONE /HPF Urine Crystals NONE /LPF Urine Bacteria NEGATIVE /HPF Urine Casts PRESENT /LPF Urine Hyaline Casts 2-5 H /LPF Urine Mucus SMALL H /LPF Urine Culture Indicated NO My Orders Orders - ADJA SANDOVAL MD Comprehensive Metabolic Panel (02/15/21 11:16) Ua Culture If Indicated (02/15/21 11:16) Ed Iv/Invasive Line Start (02/15/21 11:16) Cbc With Automated Diff (02/15/21 11:16) Protime With Inr (02/15/21 11:16) Partial Thromboplastin Time (02/15/21 11:16) Ct Angio Abdomen/Pelv W (02/15/21 11:16) Iohexol Injection (Omnipaque 350 Mg/Ml 1 (02/15/21 12:00) Received Contrast (Hold Metformin- Contr (02/15/21 12:00) Sodium Chloride Flush (Catheter Flush Sy (02/15/21 12:00) Ns (Ivpb) (Sodium Chloride 0.9% Ivpb Bag (02/15/21 12:00) Fentanyl Inj (Sublimaze Injection) (02/15/21 12:58) Ns Iv 1000 Ml (Sodium Chloride 0.9%) (02/15/21 13:01) Medications Given in ED Current Medications Medications Dose Ordered Sig/Lucía Route Start Time Stop Time Status Last Admin Dose Admin Iohexol 100 ml ONCE ONCE IV 02/15/21 12:00 02/15/21 12:01 DC 02/15/21 12:10 100 ML Sodium Chloride 10 ml NEEDED PRN IV 02/15/21 12:00 02/15/21 13:58 DC 02/15/21 12:10 10 ML Sodium Chloride 100 ml ONCE ONCE IV 02/15/21 12:00 02/15/21 12:01 DC 02/15/21 12:10 80 ML Vital Signs/I&O 02/15/21 02/15/21 11:02 13:52 Temp 36.4 36.4 Pulse 68 60 Resp 18 18 B/P (MAP) 142/74 Pulse Ox 97 96 O2 Delivery Room Air Room Air Capillary Refill : Less Than 3 Seconds Progress Note #1: Progress Note Check labs as well as urine. Ordered CT angiogram of the abdomen pelvis to e valuate his aorta and groin. Progress Note #2: Progress Note Labs appear stable without acute kidney injury. His creatinine was good to be able to do a CT angiogram of his abdomen and pelvis. He had some increased specific gravity for possible dehydration. Progress Note #3: Progress Note Ordered IV pain medicine the fentanyl and a liter of fluid for hydration. CT scan did not demonstrate any acute issues with the aortic aneurysm or signs of aneurysm into the groin or iliac area. Adson's test appeared stable otherwise well encourage fluids to help with hydration and prescribed a few hydrocodone to help with pain until he sees Dr. Gomez on . Diagnostic Imaging Diagonstic Imaging: CT (Angiogram) Plain Films/CT/US/NM/MRI: abdomen, pelvis Comments NAME: MICHAEL HENDRICKSON [facility] REC#: [id number] PT STATUS: REG ER : 1955 PHYSICIAN: DAJA SANDOVAL MD ADMIT DATE: 02/15/21/ER FS Draft Date of Exam:02/15/21 CT ANGIO ABDOMEN/PELV W PROCEDURE: CT Angio Abdomen/Pelvis with. TECHNIQUE: Multiple contiguous axial images were obtained through the abdomen and pelvis after the uneventful bolus administration of intravenous contrast. Sagittal and coronal MIP reconstructions with then performed. All CT scans use one or more of the following dose optimizing techniques: automated exposure control, MA and/or KvP adjustment based on patient size and exam type or iterative reconstruction. INDICATION: Left groin pain. History of abdominal aortic aneurysm repair. COMPARISON: None available. FINDINGS: Status post endovascular repair of abdominal aortic aneurysm. The graft is widely patent and there is no endoleak. The aneurysm sac measures up to 4.6 cm. The celiac, superior mesenteric and bilateral renal arteries are patent. The liver, gallbladder, spleen and pancreas are normal. No free intraperitoneal air or fluid. No loculated fluid collection to indicate abscess. No adrenal mass. Multiple bilateral simple renal cysts are noted to indicate followup imaging. No solid renal mass. No renal or ureteral stones. Urinary bladder is normally filled. Prostate is not enlarged. The stomach is decompressed, limiting assessment. No bowel obstruction. No pericolonic inflammatory change. Appendix is normal. No diverticulosis or diverticulitis. Normal caliber abdominal aorta. No abdominal or pelvic lymphadenopathy. No concerning focal osseous lesion. IMPRESSION: 1. Status post endovascular repair of aortic aneurysm with patent graft and no endoleak. 2. No urinary tract calculi or obstructive uropathy. 3. No colitis or diverticulitis. Dictated on workstation # [id number] Dict: 02/15/21 1229 Trans: 02/15/21 1258 [facility] [id number] Interpreted by: SEAN KEITH MD Electronically signed by: Reviewed: Reviewed by Me Departure Impression Primary Impression: Left groin pain Additional Impression: Leg weakness, bilateral Disposition: 01 HOME, SELF-CARE Condition: Stable Departure-Patient Inst. Decision time for Depature: 13:08 Referrals: SHIRA GOMEZ MD (PCP/Family) Primary Care Physician Patient Instructions: Dehydration, Adult ED, Pelvic Pain ED, Weakness ED Add. Discharge Instructions: Try to stay well hydrated and drink plenty of fluids Follow up with Dr. Gomez and the [facility] clinic about your pelvic/groin pain on the left side and weakness as you try to get around. If you are taking the narcotic pain medicine for severe pain then consider taking Miralax as a laxative to help keep your bowels moving and prevent constipation from the narcotic. Be more careful with walking and getting around as the narcotic can make you more unsteady as well. All discharge instructions reviewed with patient and/or family. Voiced understanding. Scripts Hydrocodone/Acetaminophen (Hydrocodone-Acetamin 5-325 mg) 1 Each Tablet 1 TAB PO Q6H PRN for PAIN-SEVERE (8-10) for 3 Days, #12 TAB 0 Refills Prov: DAJA SANDOVAL MD 02/15/21 DAJA SANDOVAL MD Feb 15, 2021 11:25
[2021-02-15 11:35] LABS: BASOPHILS % (AUTO) 1 % (0-10); EOSINOPHILS % (AUTO) 1 % (0-10); HEMATOCRIT 47 % (40-54); HEMOGLOBIN 15.6 G/DL (13.3-17.7); LYMPHOCYTES % (AUTO) 16 % (12-44); MEAN CORPUSCULAR HEMOGLOBIN 30 PG (25-34); MEAN CORPUSCULAR HGB CONC 33 G/DL (32-36); MEAN CORPUSCULAR VOLUME 89 FL (80-99); MEAN PLATELET VOLUME 10.2 FL (7.4-10.4); MONOCYTES % (AUTO) 10 % (0-12); NEUTROPHILS % (AUTO) 73 % (42-75); PLATELET COUNT 278 10^3/uL (130-400); WHITE BLOOD COUNT 10.6 10^3/uL (4.3-11.0)
[2021-02-15 11:36] LABS: BASOPHILS # (AUTO) 0.1 10^3/uL (0.0-0.1); EOSINOPHILS # (AUTO) 0.1 10^3/uL (0.0-0.3); LYMPHOCYTES # (AUTO) 1.7 X 10^3 (1.0-4.0); NEUTROPHILS # (AUTO) 7.7 X 10^3 (1.8-7.8)
[2021-02-15 11:41] LABS: INR 0.9 (0.8-1.4); PROTHROMBIN TIME PATIENT 12.6 SEC (12.2-14.7)
[2021-02-15 11:48] LABS: BUN/CREATININE RATIO 23; CARBON DIOXIDE 26 MMOL/L (21-32); CHLORIDE 102 MMOL/L (98-107); CREATININE SERUM 0.83 MG/DL (0.60-1.30); GFR ESTIMATED > 60; GLUCOSE 115 MG/DL (70-105); POTASSIUM 4.4 MMOL/L (3.6-5.0); SODIUM 138 MMOL/L (135-145)
[2021-02-15 11:49] LABS: ALANINE AMINOTRANSFERASE 17 U/L (0-55); ALBUMIN 4.5 GM/DL (3.2-4.5); ALKALINE PHOSPHATASE 60 U/L (40-136); BILIRUBIN,TOTAL 0.3 MG/DL (0.1-1.0); CALCIUM 9.8 MG/DL (8.5-10.1); TOTAL PROTEIN 7.3 GM/DL (6.4-8.2)
[2021-02-15 12:00] LABS: BILIRUBIN,URINE NEGATIVE (NEGATIVE); CLARITY,URINE SL CLOUDY; COLOR,URINE YELLOW; GLUCOSE, URINE (UA) NEGATIVE (NEGATIVE); KETONES,URINE NEGATIVE (NEGATIVE); LEUKOCYTE ESTERASE ,URINE NEGATIVE (NEGATIVE); NITRITE,URINE NEGATIVE (NEGATIVE); PROTEIN,URINE 2+ (NEGATIVE)
[2021-02-15] MEDS ORDERED: HOLD METFORMIN - RECEIVED CONTRAST 20 ML VIAL IV SCH (12:00)
[2021-02-15] MEDS ORDERED: NS 100 ML (IVPB) BAG IV ONE (12:00)
[2021-02-15] MEDS ORDERED: IOHEXOL 350 MG/ML 100 ML (OMNIPAQUE 350) VIAL IV ONE (12:00)
[2021-02-15] MEDS ORDERED: CATHETER FLUSH 10 ML SYR IV PRN (12:00)
[2021-02-15 12:05] LABS: BACTERIA,URINE NEGATIVE /HPF; RBC,URINE 0-2 /HPF
[2021-02-15] MEDS ORDERED: fentaNYL INJ 100 MCG/2 ML AMP IVP STA (12:58)
--- NOTE | 2021-02-15 12:58 | Diagnostic Imaging Report ---
PROCEDURE: CT Angio Abdomen/Pelvis with. TECHNIQUE: Multiple contiguous axial images were obtained through the abdomen and pelvis after the uneventful bolus administration of intravenous contrast. Sagittal and coronal MIP reconstructions with then performed. All CT scans use one or more of the following dose optimizing techniques: automated exposure control, MA and/or KvP adjustment based on patient size and exam type or iterative reconstruction. INDICATION: Left groin pain. History of abdominal aortic aneurysm repair. COMPARISON: None available. FINDINGS: Status post endovascular repair of abdominal aortic aneurysm. The graft is widely patent and there is no endoleak. The aneurysm sac measures up to 4.6 cm. The celiac, superior mesenteric and bilateral renal arteries are patent. The liver, gallbladder, spleen and pancreas are normal. No free intraperitoneal air or fluid. No loculated fluid collection to indicate abscess. No adrenal mass. Multiple bilateral simple renal cysts are noted to indicate followup imaging. No solid renal mass. No renal or ureteral stones. Urinary bladder is normally filled. Prostate is not enlarged. The stomach is decompressed, limiting assessment. No bowel obstruction. No pericolonic inflammatory change. Appendix is normal. No diverticulosis or diverticulitis. Normal caliber abdominal aorta. No abdominal or pelvic lymphadenopathy. No concerning focal osseous lesion. IMPRESSION: 1. Status post endovascular repair of aortic aneurysm with patent graft and no endoleak. 2. No urinary tract calculi or obstructive uropathy. 3. No colitis or diverticulitis. Dictated by: Dictated on workstation # [id number]
[2021-02-15] MEDS ORDERED: NS IV 1000 ML 1,000 ML IV STA (13:01)
[2021-02-15] MEDS ORDERED: ACHD5005 PO (13:06)
[2021-02-15 13:52] VITALS: BP 142/74
== END 2021-02-15 13:52 | disposition home or self-care (01) ==
LOC: EDUNIT# 11:00 → ER FS 11:02
DX: R10.32 Left lower quadrant pain (principal); R53.1 Weakness; I10 Essential (primary) hypertension; E78.00 Pure hypercholesterolemia, unspecified; E11.9 Type 2 diabetes mellitus without complications; Z79.82 Long term (current) use of aspirin; Z79.899 Other long term (current) drug therapy
CPT/HCPCS: 36415; 74174; 80053; 81000; 85025; 85610; 85730

== ENCOUNTER 2021-04-15 11:04 | Emergency (ER) | payer OTHER, MEDICARE ==
[~2021-04-15] VITALS: Ht 175 cm; Wt 92.0 kg
[~2021-04-15 11:04] MED LIST changes: +ACHD5005 PO
--- NOTE | 2021-04-15 11:15 | ED Upper Extremity ---
General Stated Complaint: FALL; LT SHOULDER INJ History of Present Illness Date Seen by Provider: Apr 15, 2021 Time Seen by Provider: 11:15 Initial Comments 65-year-old male presents with left shoulder pain. Patient reports he "tripped over his own feet" fell onto his left shoulder. Patient has limited range of motion and pain in the left shoulder area. He does have some minor deformity. Patient states he might hit the left side of his face but does not complain of any pain or injury. Allergies and Home Medications Allergies Coded Allergies: No Known Drug Allergies (Unverified , 07/08/19) Patient Home Medication List Home Medication List Reviewed: Yes Amiodarone HCl (Amiodarone HCl) 200 Mg Tablet, 400 MG PO DAILY Prescribed by: GORDON MAYFIELD on 07/11/19 1202 Aspirin (Aspirin) 81 Mg Tab.chew, 81 MG PO DAILY Prescribed by: GORDON MAYFIELD on 07/11/19 1202 Atorvastatin Calcium (Lipitor) 40 Mg Tablet, 40 MG PO HS Prescribed by: GORDON MAYFIELD on 07/11/19 1202 Cefuroxime Axetil (Cefuroxime) 500 Mg Tablet, 500 MG PO BID Prescribed by: GORDON MAYFIELD on 07/11/19 1203 Citalopram Hydrobromide (Citalopram HBr) 20 Mg Tablet, 20 MG PO HS, (Reported) Entered as Reported by: DARLIN ROYAL on 07/08/19 1452 Clopidogrel Bisulfate (Clopidogrel) 75 Mg Tablet, 75 MG PO DAILY Prescribed by: GORDON MAYFIELD on 07/11/19 1202 Docusate Sodium (Stool Softener) 100 Mg Capsule, 100 MG PO BID, (Reported) Entered as Reported by: DARLIN ROYAL on 07/08/19 1503 Glyburide (Glyburide) 1.25 Mg Tablet, 1.25 MG PO BID Prescribed by: GUERA LAWSON on 07/12/19 1200 Hydrocodone/Acetaminophen (Hydrocodone-Acetamin 5-325 mg) 1 Each Tablet, 1 TAB PO Q6H PRN for PAIN-SEVERE (8-10) Prescribed by: DAJA SANDOVAL on 02/15/21 1307 Metoprolol Succinate (Metoprolol Succinate) 100 Mg Tab.er.24h, 100 MG PO DAILY Prescribed by: GORDON MAYFIELD on 07/11/19 1202 Sacubitril/Valsartan (Entresto 24 mg-26 mg Tablet) 1 Each Tablet, 1 TAB PO BID Prescribed by: GORDON MAYFIELD on 07/11/19 1202 Sitagliptin Phosphate (Januvia) 100 Mg Tablet, 100 MG PO DAILY, (Reported) Entered as Reported by: DARLIN ROYAL on 07/08/19 1452 Review of Systems Constitutional: No chills, No fever EENTM: no symptoms reported Respiratory: no symptoms reported Cardiovascular: no symptoms reported Genitourinary: no symptoms reported Musculoskeletal: see HPI Skin: no symptoms reported Psychiatric/Neurological: No Symptoms Reported Past Zopxbsq-Uhiytr-Awzkef Hx Past Medical History Surgeries: Yes Abdominal, CABG, Vascular Surgery Respiratory: No Cardiac: Yes Coronary Artery Disease, High Cholesterol, Hypertension Neurological: No Genitourinary: No Gastrointestinal: No Endocrine: Yes Diabetes, Non-Insulin dep HEENT: No Cancer: No Psychosocial: No Family Medical History Heart Disease Physical Exam Vital Signs Vital Signs - First Documented 04/15/21 11:10 Temp 35.9 Pulse 65 Resp 16 B/P (MAP) 172/80 (110) Pulse Ox 95 O2 Delivery Room Air Capillary Refill : Height, Weight, BMI Height: '" Weight: lbs. oz. kg; 31.00 BMI Method: General Appearance: WD/WN, no apparent distress Cardiovascular: normal peripheral pulses, regular rate, rhythm Respiratory: lungs clear, normal breath sounds Gastrointestinal: non tender, no organomegaly Shoulder: deformity (exam consistant with anterior dislocation ), limited ROM Elbow/Forearm: no evidence of injury, normal ROM Wrist: Yes non-tender, Yes no evidence of injury, Yes normal ROM Hand: non-tender, no evidence of injury, normal ROM Procedures/Interventions Splinting and Joint Reduction : Pre-Proc Neuro Vasc Exam: normal Post-Proc Neuro Vasc Exam: normal Joint Reduction Site: shoulder (L) post joint reduction film: no fracture seen Progress David technique was used for shoulder reduction. Patient tolerated well with good reduction Immobilizers: Large Shoulder Progress/Results/Core Measures Results/Orders My Orders Orders - CONSTANTIN GUZMAN DO Shoulder 3 View Left (04/15/21 11:15) Shoulder 1 View Left (04/15/21 11:47) Shoulder Immoblizer (04/15/21 11:55) Vital Signs/I&O 04/15/21 04/15/21 11:10 12:07 Temp 35.9 35.9 Pulse 65 65 Resp 16 16 B/P (MAP) 172/80 (110) 172/80 Pulse Ox 95 95 O2 Delivery Room Air Room Air Progress Progress Note : Progress Note Patient with inferior, anterior dislocation. David technique was used for shoulder reduction. Patient tolerated well with no immediate complications. Postreduction x-ray shows good alignment. Patient was placed in a shoulder immobilizer and discharged Diagnostic Imaging Diagonstic Imaging: Xray Comments Date of Exam:04/15/21 SHOULDER 3 VIEW LEFT INDICATION: Fall with left shoulder injury AP, oblique and transscapular views of the left shoulder reveal anterior inferior dislocation of the humeral head. Overlying pacemaker battery pack does limit evaluation however no definite fracture is seen. Marginal spurring is seen at the acromioclavicular joint. IMPRESSION: Anterior-inferior dislocation of left humeral head. Reviewed: Reviewed by Me, Reviewed/Discussed Diagonstic Imaging: Xray Comments SHOULDER 1 VIEW LEFT Indication: Postreduction left shoulder. Comparison: 04/15/2021 at 11:25 Findings: Single AP view of the left shoulder demonstrates relocation of the glenohumeral joint. There is no fracture. Impression: Satisfactory post reduction view left shoulder. Reviewed: Reviewed by Me, Reviewed/Discussed Departure Impression Primary Impression: Anterior dislocation of left shoulder Qualified Codes: S43.015A - Anterior dislocation of left humerus, initial encounter Disposition: HOME, SELF-CARE Condition: Stable Departure-Patient Inst. Referrals: SHIRA GOMEZ MD (PCP/Family) Primary Care Physician Patient Instructions: Shoulder Dislocation (DC) Add. Discharge Instructions: Follow-up with med specialist of your choice for recheck of symptoms in approximately 7 days, please call for an appointment upon discharge today CONSTANTIN GUZMAN DO Apr 15, 2021 11:15
--- NOTE | 2021-04-15 11:31 | Diagnostic Imaging Report ---
INDICATION: Fall with left shoulder injury AP, oblique and transscapular views of the left shoulder reveal anterior inferior dislocation of the humeral head. Overlying pacemaker battery pack does limit evaluation however no definite fracture is seen. Marginal spurring is seen at the acromioclavicular joint. IMPRESSION: Anterior-inferior dislocation of left humeral head. Dictated by: Dictated on workstation # [id number]
--- NOTE | 2021-04-15 11:59 | Diagnostic Imaging Report ---
Indication: Postreduction left shoulder. Comparison: 04/15/2021 at 11:25 Findings: Single AP view of the left shoulder demonstrates relocation of the glenohumeral joint. There is no fracture. Impression: Satisfactory post reduction view left shoulder. Dictated by: Dictated on workstation # [id number]
[2021-04-15 12:07] VITALS: BP 172/80
== END 2021-04-15 12:18 | disposition home or self-care (01) ==
LOC: EDUNIT# 11:04 → ER FS 11:12
DX: S43.015A Anterior dislocation of left humerus, initial encounter (principal); I10 Essential (primary) hypertension; E78.00 Pure hypercholesterolemia, unspecified; I25.10 Atherosclerotic heart disease of native coronary artery without angina pectoris; E11.9 Type 2 diabetes mellitus without complications; Z79.899 Other long term (current) drug therapy; Z79.82 Long term (current) use of aspirin; Z79.01 Long term (current) use of anticoagulants
CPT/HCPCS: 23605; 23650; 73020; 73030

== ENCOUNTER 2022-02-13 11:40 | Emergency (ER) | payer MEDICARE, OTHER ==
[~2022-02-13] VITALS: Ht 175 cm; Wt 92.1 kg
[~2022-02-13 11:40] MED LIST changes: -AMIO200T6 PO; +AMIO200T65 PO
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
[2022-02-13 12:02] LABS: BASOPHILS # (AUTO) 0.1 10^3/uL (0.0-0.1); BASOPHILS % (AUTO) 1 % (0-10); EOSINOPHILS # (AUTO) 0.3 10^3/uL (0.0-0.3); EOSINOPHILS % (AUTO) 2 % (0-10); HEMATOCRIT 45 % (40-54); HEMOGLOBIN 15.1 g/dL (13.3-17.7); LYMPHOCYTES # (AUTO) 2.1 10^3/uL (1.0-4.0); LYMPHOCYTES % (AUTO) 20 % (12-44); MEAN CORPUSCULAR HEMOGLOBIN 29 pg (25-34); MEAN CORPUSCULAR HGB CONC 34 g/dL (32-36); MEAN CORPUSCULAR VOLUME 86 fL (80-99); MEAN PLATELET VOLUME 10.3 fL (9.0-12.2); MONOCYTES # (AUTO) 0.9 10^3/uL (0.0-1.0); MONOCYTES % (AUTO) 8 % (0-12); NEUTROPHILS # (AUTO) 7.2 10^3/uL (1.8-7.8); NEUTROPHILS % (AUTO) 68 % (42-75); PLATELET COUNT 260 10^3/uL (130-400); WHITE BLOOD COUNT 10.7 10^3/uL (4.3-11.0)
--- NOTE | 2022-02-13 12:18 | Diagnostic Imaging Report ---
INDICATION: Syncope Frontal chest obtained at 1201 p.m. and compared to 07/11/2019. There is poststernotomy change. The heart is borderline in size. Pacemaker is unchanged. There is no focal infiltrate or pneumothorax or pleural fluid. There is a right shoulder prosthesis in good alignment. IMPRESSION: Postoperative changes as above. No acute infiltrate or pneumothorax or pleural fluid. No sign of edema. Dictated by: Dictated on workstation # [id number]
[2022-02-13 12:26] LABS: INR 0.9 (0.8-1.4); PROTHROMBIN TIME PATIENT 12.5 SEC (12.2-14.7)
[2022-02-13 12:27] LABS: ALBUMIN 4.4 GM/DL (3.2-4.5); BILIRUBIN,TOTAL 0.3 MG/DL (0.1-1.0); CALCIUM 9.5 MG/DL (8.5-10.1); CREATININE SERUM 0.82 MG/DL (0.60-1.30); MAGNESIUM 1.6 MG/DL (1.6-2.4); POTASSIUM 4.2 MMOL/L (3.6-5.0); TOTAL PROTEIN 7.3 GM/DL (6.4-8.2)
[2022-02-13 13:57] VITALS: BP 129/76
== END 2022-02-13 13:58 | disposition home or self-care (01) ==
LOC: EDUNIT# 11:40 → ER FS 11:41
DX: I47.2 Ventricular tachycardia (principal); Z95.1 Presence of aortocoronary bypass graft; Z95.0 Presence of cardiac pacemaker
CPT/HCPCS: 36415; 71045; 80053; 83735; 83874; 83880; 84484; 85025; 85610; 85730; 93005; 93041

== ENCOUNTER 2022-03-15 22:30 | Observation (INO) | payer MEDICARE ==
[~2022-03-15] VITALS: Ht 175.2 cm; Wt 89.8 kg
[2022-03-15 22:43] LABS: BASOPHILS # (AUTO) 0.1 10^3/uL (0.0-0.1); BASOPHILS % (AUTO) 1 % (0-10); EOSINOPHILS # (AUTO) 0.4 10^3/uL (0.0-0.3); EOSINOPHILS % (AUTO) 4 % (0-10); HEMATOCRIT 47 % (40-54); HEMOGLOBIN 15.3 g/dL (13.3-17.7); LYMPHOCYTES % (AUTO) 18 % (12-44); MEAN CORPUSCULAR HEMOGLOBIN 29 pg (25-34); MEAN CORPUSCULAR HGB CONC 33 g/dL (32-36); MEAN CORPUSCULAR VOLUME 88 fL (80-99); MEAN PLATELET VOLUME 10.6 fL (9.0-12.2); MONOCYTES # (AUTO) 1.2 10^3/uL (0.0-1.0); MONOCYTES % (AUTO) 11 % (0-12); NEUTROPHILS # (AUTO) 7.1 10^3/uL (1.8-7.8); NEUTROPHILS % (AUTO) 66 % (42-75); PLATELET COUNT 251 10^3/uL (130-400); WHITE BLOOD COUNT 10.9 10^3/uL (4.3-11.0)
[2022-03-15 23:04] LABS: ALBUMIN 4.2 GM/DL (3.2-4.5); BILIRUBIN,TOTAL 0.4 MG/DL (0.1-1.0); CALCIUM 9.5 MG/DL (8.5-10.1); CREATININE SERUM 1.07 MG/DL (0.60-1.30); POTASSIUM 4.2 MMOL/L (3.6-5.0); TOTAL PROTEIN 7.1 GM/DL (6.4-8.2)
[2022-03-15 23:08] LABS: INR 0.9 (0.8-1.4); PROTHROMBIN TIME PATIENT 12.5 SEC (12.2-14.7)
[2022-03-16] MEDS ORDERED: AMIODARONE FOR BOLUS 150 MG in NS (IVPB) 100 ML IV ONE (01:45)
[2022-03-16] MEDS: AMIODARONE INJECTION 450 MG in NORMAL SALINE 250 ML IV SCH ×3 (02:31→21:36)
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
[2022-03-16 03:54] VITALS: BP 133/79
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
[2022-03-16] MEDS: inSUlin ASPART (NovoLOG) 1 UNIT/0.01 ML (CHARGE PER UNIT) SC SCH ×4 (05:00→21:36)
[2022-03-16] MEDS ORDERED: ONDANSETRON 4 MG/2 ML (SDV) Z0FRAN IV PRN (05:15)
[2022-03-16] MEDS: CATHETER FLUSH 10 ML SYR IVP SCH ×3 (06:09→21:37)
[2022-03-16] MEDS: MAGNESIUM 1 GM/100 ML IVPB 100 ML IV SCH (06:13)
[2022-03-16] MEDS: POTASSIUM CL 10MEQ/50ML IVPB 50 ML IV SCH (06:13)
[2022-03-16] MEDS: KCL 20 MEQ TAB (K-DUR) PO SCH (06:14)
[2022-03-16] MEDS ORDERED: NS IV 500 ML 500 ML IV PRN (06:15)
--- NOTE | 2022-03-16 07:28 | Diagnostic Imaging Report ---
Indication: Chest pain. COMPARISON: 02/13/2022 FINDINGS: An implantable cardiac defibrillator device is present. There has been prior sternotomy. Extensive surgical clips project over the mediastinum and chest. Heart size is mildly prominent but there are no current findings of edema or failure. There is no new alveolar consolidation or pneumonia. There is no large effusion. There is no pneumothorax. There additionally are surgical changes involving the cervical spine in the right shoulder. IMPRESSION: Stable appearance of the chest. No new or acute cardiopulmonary process evident. Dictated by: Dictated on workstation # [id number]
--- NOTE | 2022-03-16 08:31 | Consultation-Cardiology ---
HPI-Cardiology Cardiology Consultation Date of Consultation 03/16/22 Date of Admission Time Seen by Provider: 08:25 Indication: Ventricular tachycardia HPI 66-year-old gentleman with history of congestive heart failure, chronic compensated left ventricular systolic dysfunction, coronary artery disease and history of ventricular tachycardia. Patient received 2 shocks from his defibrillator last night. He denied any chest pain, no shortness of breath, no palpitation or syncope. Appeared to have appropriate shocks from ventricular tachycardia, called EMS, on the way back to the hospital patient was noted to have a slow wide-complex tachycardia occurred. Currently feeling well. No new complaint. Denied any pedal edema. No syncope. No chest pain. Home Medications & Allergies Allergies: Coded Allergies: No Known Drug Allergies (Unverified , 07/08/19) Home Medication List Reviewed: Yes [id number] Hx Patient Social History Marital Status: Employed/Student: retired Smoking Status: Former Smoker 2nd Hand Smoke Exposure: No Have you traveled recently?: No Alcohol Use?: No Immunizations Up To Date Date of Pneumonia Vaccine: May 07, 2017 Date of Influenza Vaccine: May 06, 2019 Past Medical History Discussed below Family Medical History Significant Family History: Heart Disease Family Medical Hx Noncontributory Review of Systems-General Review of Systems Constitutional: see HPI, malaise EENTM: see HPI, no symptoms reported Respiratory: see HPI; No cough, No dyspnea on exertion, No hemoptysis, No orthopnea, No phlegm, No short of breath, No stridor, No wheezing, No other Cardiovascular: see HPI; No chest pain, No edema, No Hx of Intervention, No palpitations, No syncope, No vascular heart diseas, No other Gastrointestinal: no symptoms reported, see HPI Genitourinary: no symptoms reported, see HPI Musculoskeletal: no symptoms reported, see HPI Skin: no symptoms reported, see HPI Psychiatric/Neurological: No Symptoms Reported, See HPI Reviewed Test Results Reviewed Test Results Lab Laboratory Tests Test 03/15/22 22:37 03/16/22 01:03 03/16/22 05:34 03/16/22 06:54 Range/Units White Blood Count 10.9 4.3-11.0 10^3/uL Red Blood Count 5.35 4.30-5.52 10^6/uL Hemoglobin 15.3 13.3-17.7 g/dL Hematocrit 47 40-54 % Mean Corpuscular Volume 88 80-99 fL Mean Corpuscular Hemoglobin 29 25-34 pg Mean Corpuscular Hemoglobin Concent 33 32-36 g/dL Red Cell Distribution Width 12.3 10.0-14.5 % Platelet Count 251 130-400 10^3/uL Mean Platelet Volume 10.6 9.0-12.2 fL Immature Granulocyte % (Auto) 0 % Neutrophils (%) (Auto) 66 42-75 % Lymphocytes (%) (Auto) 18 12-44 % Monocytes (%) (Auto) 11 0-12 % Eosinophils (%) (Auto) 4 0-10 % Basophils (%) (Auto) 1 0-10 % Neutrophils # (Auto) 7.1 1.8-7.8 10^3/uL Lymphocytes # (Auto) 2.0 1.0-4.0 10^3/uL Monocytes # (Auto) 1.2 H 0.0-1.0 10^3/uL Eosinophils # (Auto) 0.4 H 0.0-0.3 10^3/uL Basophils # (Auto) 0.1 0.0-0.1 10^3/uL Immature Granulocyte # (Auto) 0.0 0.0-0.1 10^3/uL Prothrombin Time 12.5 12.2-14.7 SEC INR Comment 0.9 0.8-1.4 Activated Partial Thromboplast Time 28 24-35 SEC Sodium Level 137 135-145 MMOL/L Potassium Level 4.2 3.6-5.0 MMOL/L Chloride Level 101 98-107 MMOL/L Carbon Dioxide Level 23 21-32 MMOL/L Anion Gap 13 5-14 MMOL/L Blood Urea Nitrogen 11 7-18 MG/DL Creatinine 1.07 0.60-1.30 MG/DL Estimat Glomerular Filtration Rate 77 BUN/Creatinine Ratio 10 Glucose Level 259 H 70-105 MG/DL Calcium Level 9.5 8.5-10.1 MG/DL Corrected Calcium 9.3 8.5-10.1 MG/DL Magnesium Level 2.0 1.6-2.4 MG/DL Total Bilirubin 0.4 0.1-1.0 MG/DL Aspartate Amino Transf (AST/SGOT) 17 5-34 U/L Alanine Aminotransferase (ALT/SGPT) 20 0-55 U/L Alkaline Phosphatase 81 40-136 U/L Myoglobin 98.0 H 10.0-92.0 NG/ML Troponin I 0.034 H 0.447 *H 0.891 *H <0.028 NG/ML Total Protein 7.1 6.4-8.2 GM/DL Albumin 4.2 3.2-4.5 GM/DL Glucometer 142 H 70-110 MG/DL Physical Exam Physical Exam Vital Signs Vital Signs - First Documented Capillary Refill : Less Than 3 Seconds Height, Weight, BMI Height: '" Weight: lbs. oz. kg; 29.54 BMI Method: General Appearance: No Apparent Distress, WD/WN Eyes: Bilateral Eye Normal Inspection, Bilateral Eye PERRL, Bilateral Eye EOMI HEENT: PERRL/EOMI, TMs Normal, Normal ENT Inspection, Pharynx Normal, Moist Mucous Membranes Neck: Full Range of Motion, Normal Inspection, Non Tender, Supple, Carotid Bruit Respiratory: Chest Non Tender, Normal Breath Sounds, No Accessory Muscle Use, No Respiratory Distress Cardiovascular: Regular Rate, Rhythm, No Edema, No JVD, Normal Peripheral Pulses, Systolic Murmur, Gallop/S3 Gastrointestinal: Normal Bowel Sounds, No Organomegaly, No Pulsatile Mass, Non Tender, Soft Back: Normal Inspection, No CVA Tenderness, No Vertebral Tenderness Extremity: Normal Capillary Refill, Normal Inspection, Normal Range of Motion, Non Tender, No Calf Tenderness, No Pedal Edema Neurologic/Psychiatric: Alert, Oriented x3, No Motor/Sensory Deficits, Normal Mood/Affect Skin: Normal Color, Warm/Dry Lymphatic: No Adenopathy A/P-Cardiology Admission Diagnosis Sustained ventricular tachycardia Non-ST elevation myocardial infarction Coronary artery disease Congestive heart failure, chronic compensated left ventricular systolic dysfunction, ischemic cardiomyopathy Assessment/Plan Sustained ventricular tachycardia, status post 2 shocks from his defibrillator. Currently in sinus rhythm. Patient has history of incessant monomorphic ventricular tachycardia secondary to scar tissue, underwent [address] Dennison on May 2021 and November 2021. Patient is scheduled for another ablation in May 2022. I will contact Dr. Funez for possible transfer to [place] and performing the ablation early Maintained on sotalol which will be discontinued at this point and he is receiving amiodarone bolus and a drip Non-ST elevation myocardial infarction, elevated troponin level, probably type II myocardial infarction secondary to the shock from his defibrillator. Denied any chest pain, had nonspecific EKG changes. Continue to monitor for now Coronary artery disease, history of CABG in 1989, Cardiac catheterization was done in July 2019 showed occlusion of the LAD, 50% mid circumflex artery with moderate to severe disease at the proximal right coronary artery. Occlusion of the distal right coronary artery. Occluded vein graft probably to the distal right coronary artery, patent vein graft to the diagonal artery with 60% stenosis, atretic but patent SANDERS to the LAD with elevated left ventricular end-diastolic pressure. Akinesia of the inferior wall and posterobasal wall with ejection fraction 35% Congestive heart failure, chronic compensated left ventricular systolic dysfunction, ejection fraction 30%. I will repeat 2D echocardiogram Abnormal baseline EKG with QS and some ST elevation in the inferolateral leads due to the old scar History of abdominal aortic aneurysm repair in the remote past with peripheral arterial disease Carotid stenosis, mild to moderate bilaterally with no significant obstructive disease. Diabetes mellitus, followed and managed by primary care physician Obesity, BMI 29 Previous history of tobaccoism, he has stopped smoking in 1999 History of erectile dysfunction Clinical Quality Measures AMI/AHF: ASA po Prior to arrival: Yes (324 MG [facility] EN ROUTE ) CELIA KELLY MD Mar 16, 2022 08:31
[2022-03-16] MEDS ORDERED: meTOprolol SUCCINATE 100 MG (TOPROL XL) TAB PO SCH ×2 (09:00→21:00)
[2022-03-16] MEDS: SACUBITRIL/VALSARTAN 24/26 MG (ENTRESTO) TABLET PO SCH ×2 (09:10→21:30)
[2022-03-16] MEDS: ASPIRIN 81 MG CHEW (CHILDREN'S ASA) PO SCH (09:10)
[2022-03-16] MEDS: CLOPIDOGREL 75 MG (PLAVIX) TABLET PO SCH ×2 (09:12→09:13)
--- NOTE | 2022-03-16 12:42 | Short Stay Summary-Hospitalist ---
CHEYENNE JIMÉNEZ 03/16/22 1242: History of Present Illness HPI/Chief Complaint CC: Rocio Simon discharged twice HPI: 66yo M patient with a past medical history of VTach presented to the ED after his defibrillator discharged twice while at home watching television. Patient denies having any chest pain, even when the defibrillator went off. Patient also has a past medical history of diabetes and was started on sliding scale insulin on the floor after his blood sugar was 259. Cardiology has been consulted. Source: patient, EMS notes reviewed Date Seen 03/16/22 Time Seen by a Provider: 09:00 Attending Physician Dex Beasley MD PCP Admitting Physician: Sharlene Lawson DO Attending Physician: Sharlene Lawson DO Referring Physician Date of Admission Mar 16, 2022 at 02:49 Home Medications & Allergies Home Medications Reviewed patient Home Medication Reconciliation performed by pharmacy medication reconciliations semiconductor manufacturing technician and/or nursing. Patients Allergies have been reviewed. Allergies Allergies Coded Allergies No Known Drug Allergies ([id number]/3/19) Past Medical/Social/Family Hx Patient Social History Marrital Status: Employed/Student: retired Tobacco Use?: No Smoking Status: Former Smoker Smokeless Tobacco Frequency: Never a User E-Cig and/or Vaping Freq: Never a User Substance use?: No Alcohol Use?: No Pt stated abuse/neglect: No Immunizations Up To Date First/Initial COVID19 Vaccinat: NOVEMBER 2020 Second COVID19 Vaccination Davion: NOVEMBER 2020 Date of Pneumonia Vaccine: May 07, 2017 Current Status Communicates: Verbally Primary Language: Egyptian Preferred Spoken Language: Egyptian Is interpretation needed?: No Implanted or Applied Medical D: Implantable cardioverter, Pacemaker Past Medical History Diabetes VTach Review of Systems Respiratory: no symptoms reported Cardiovascular: no symptoms reported Gastrointestinal: no symptoms reported Physical Exam Physical Exam Vital Signs Vital Signs - First Documented Capillary Refill : Less Than 3 Seconds Height, Weight, BMI Height: '" Weight: lbs. oz. kg; 29.54 BMI Method: General Appearance: No Apparent Distress, WD/WN Eyes: Bilateral Eye Normal Inspection, Bilateral Eye PERRL, Bilateral Eye EOMI Respiratory: Chest Non Tender, Lungs Clear, Normal Breath Sounds, No Accessory Muscle Use, No Respiratory Distress Cardiovascular: Normal Peripheral Pulses Gastrointestinal: Normal Bowel Sounds, No Organomegaly, No Pulsatile Mass, Non Tender, Soft Extremity: Normal Inspection, Non Tender, No Calf Tenderness, No Pedal Edema Neurologic/Psychiatric: Alert, Oriented x3 Results Results/Procedures Labs Laboratory Tests 03/15/22 22:37 Patient resulted labs reviewed. Short Stay Diagnosis Conclusion Plan VTach with Defibrillator discharge Troponin elevated EKG showed evidence of old inferior infarct Consulted cardiology Echo ordered for today CXR showed no signs of heart failure Cardiac ablation scheduled in May Discharge today Follow up with Forms Analyst in [place] Attempt to have ablation done before May Diabetes Sliding scale insulin Clinical Quality Measures AMI/AHF: ASA po Prior to arrival: Yes (324 MG VIA EMS EN ROUTE ) SHARLENE LAWSON 03/16/222125: History of Present Illness HPI/Chief Complaint Chief complaint: Defibrillator discharged x2 History of present illness: This is a 66-year-old male who presented to the ER after defibrillator discharging twice. Patient remains on amiodarone drip and EP inspector process in [place] at [place] will be contacted. Source: patient Review of Systems Constitutional: see HPI Physical Exam Physical Exam General Appearance: No Apparent Distress, WD/WN Eyes: Bilateral Eye Normal Inspection, Bilateral Eye PERRL HEENT: PERRL/EOMI, TMs Normal, Normal ENT Inspection, Pharynx Normal Neck: Full Range of Motion, Normal Inspection, Non Tender, Supple, Carotid Bruit Respiratory: Chest Non Tender, Lungs Clear, Normal Breath Sounds, No Accessory Muscle Use, No Respiratory Distress Cardiovascular: Regular Rate, Rhythm, No Edema, No Gallop, No JVD, No Murmur, Normal Peripheral Pulses Gastrointestinal: Normal Bowel Sounds, No Organomegaly, No Pulsatile Mass, Non Tender, Soft Back: Normal Inspection, No CVA Tenderness, No Vertebral Tenderness Extremity: Normal Capillary Refill, Normal Inspection, Normal Range of Motion, Non Tender, No Calf Tenderness, No Pedal Edema Neurologic/Psychiatric: Alert, Oriented x3, No Motor/Sensory Deficits, Normal Mood/Affect Skin: Normal Color, Warm/Dry Lymphatic: No Adenopathy Short Stay Diagnosis Discharge Diagnosis-Short Stay Admission Diagnosis Defibrillator discharge Final Discharge Diagnosis Defibrillator discharge Conclusion Plan 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 I reviewed and verified all information documented by the medical student and made modifications to such information, when appropriate. I personally performed the physical exam and medical decision making. Sharlene Lawson, Mar 16, 2022,21:26 CHEYENNE JIMÉNEZ Mar 16, 2022 12:42 SHARLENE LAWSON DO Mar 16, 2022 21:26
[2022-03-16] MEDS ORDERED: SOTA80TA62 PO (14:15)
[2022-03-16] MEDS ORDERED: METO50TA7 PO (14:15)
[2022-03-16] MEDS ORDERED: METF-399 PO (14:17)
[2022-03-16] MEDS ORDERED: ATOR40TA70 PO (14:19)
[2022-03-16] MEDS ORDERED: GLIP5TAB13 PO (14:19)
[2022-03-16] MEDS ORDERED: CLOP75TA28 PO (14:20)
[2022-03-16] MEDS ORDERED: SACU1TAB2 PO (14:20)
[2022-03-16] MEDS ORDERED: ASPI-999 PO (14:23)
[2022-03-16] MEDS: AMIODARONE 200 MG (CORDARONE) TAB PO SCH (21:30)
[2022-03-17 05:33] LABS: BASOPHILS # (AUTO) 0.1 10^3/uL (0.0-0.1); BASOPHILS % (AUTO) 1 % (0-10); EOSINOPHILS # (AUTO) 0.2 10^3/uL (0.0-0.3); EOSINOPHILS % (AUTO) 1 % (0-10); HEMATOCRIT 43 % (40-54); HEMOGLOBIN 14.4 g/dL (13.3-17.7); LYMPHOCYTES # (AUTO) 1.5 10^3/uL (1.0-4.0); LYMPHOCYTES % (AUTO) 8 % (12-44); MEAN CORPUSCULAR HEMOGLOBIN 29 pg (25-34); MEAN CORPUSCULAR HGB CONC 33 g/dL (32-36); MEAN CORPUSCULAR VOLUME 87 fL (80-99); MEAN PLATELET VOLUME 10.8 fL (9.0-12.2); MONOCYTES # (AUTO) 1.5 10^3/uL (0.0-1.0); MONOCYTES % (AUTO) 8 % (0-12); NEUTROPHILS # (AUTO) 15.2 10^3/uL (1.8-7.8); NEUTROPHILS % (AUTO) 82 % (42-75); PLATELET COUNT 221 10^3/uL (130-400); WHITE BLOOD COUNT 18.6 10^3/uL (4.3-11.0)
[2022-03-17 06:05] LABS: ALBUMIN 3.7 GM/DL (3.2-4.5); BILIRUBIN,TOTAL 0.5 MG/DL (0.1-1.0); CREATININE SERUM 1.03 MG/DL (0.60-1.30); PHOSPHORUS 3.8 MG/DL (2.3-4.7); TOTAL PROTEIN 6.4 GM/DL (6.4-8.2)
[2022-03-17 06:23] LABS: EOSINOPHILS % (MANUAL) 2 %; LYMPHOCYTES % (MANUAL) 11 %; MONOCYTES % (MANUAL) 5 %; NEUTROPHILS % (MANUAL) 82 %; RBC MORPH NORMAL
[2022-03-17] MEDS: POTASSIUM CL 10MEQ/50ML IVPB 50 ML IV SCH (06:34)
[2022-03-17] MEDS: KCL 20 MEQ TAB (K-DUR) PO SCH (06:35)
[2022-03-17] MEDS: CATHETER FLUSH 10 ML SYR IVP SCH (06:35)
[2022-03-17] MEDS: MAGNESIUM 1 GM/100 ML IVPB 100 ML IV SCH (06:35)
[2022-03-17] MEDS: inSUlin ASPART (NovoLOG) 1 UNIT/0.01 ML (CHARGE PER UNIT) SC SCH (07:55)
[2022-03-17] MEDS: AMIODARONE 200 MG (CORDARONE) TAB PO SCH (07:55)
[2022-03-17] MEDS: ASPIRIN 81 MG CHEW (CHILDREN'S ASA) PO SCH (07:55)
[2022-03-17] MEDS: SACUBITRIL/VALSARTAN 24/26 MG (ENTRESTO) TABLET PO SCH (07:55)
[2022-03-17] MEDS: CLOPIDOGREL 75 MG (PLAVIX) TABLET PO SCH ×2 (07:55→08:04)
[2022-03-17] MEDS ORDERED: AMIO200T65 PO (10:57)
[2022-03-17] MEDS ORDERED: MTP100TCR PO (10:57)
--- NOTE | 2022-03-17 10:59 | Discharge Summary ---
Discharge Summary Hospital Course Was the Problem List Reviewed?: Yes Problems/Dx: (1) Defibrillator discharge Status: Acute (2) AICD (automatic cardioverter/defibrillator) present Hospital Course Date of Admission: Mar 16, 2022 at 02:49 Admission Diagnosis : Family Physician/Provider: Dex Beasley MD Date of Discharge: 03/17/22 Discharge Diagnosis: [ ] Hospital Course: Aric Reeves is a 66yo Male with a PMH of VTach who presented to the ED after his defibrillator discharged two times while he was sitting at home on the couch. The patient denied chest pain throughout the duration of his hospital stay. Cardiology was consulted. The patient is being discharged today on 200mg of Amiodarone PO daily and is scheduled for a cardiac ablation in [place] next Sunday (03/22/2022). CHEYENNE JIMÉNEZ Labs and Pending Lab Test: Laboratory Tests 03/16/22 11:50: Glucometer 195H 03/16/22 18:50: Glucometer 238H 03/16/22 20:39: Glucometer 218H 03/17/22 05:00: White Blood Count 18.6H, Red Blood Count 4.97, Hemoglobin 14.4, Hematocrit 43, Mean Corpuscular Volume 87, Mean Corpuscular Hemoglobin 29, Mean Corpuscular Hemoglobin Concent 33, Red Cell Distribution Width 12.5, Platelet Count 221, Mean Platelet Volume 10.8, Immature Granulocyte % (Auto) 1, Neutrophils (%) (Au to) 82H, Lymphocytes (%) (Auto) 8L, Monocytes (%) (Auto) 8, Eosinophils (%) (Auto) 1, Basophils (%) (Auto) 1, Neutrophils # (Auto) 15.2H, Lymphocytes # (Auto) 1.5, Monocytes # (Auto) 1.5H, Eosinophils # (Auto) 0.2, Basophils # (Auto) 0.1, Immature Granulocyte # (Auto) 0.1, Neutrophils % (Manual) 82, Lymphocytes % (Manual) 11, Monocytes % (Manual) 5, Eosinophils % (Manual) 2, Blood Morphology Comment NORMAL, Sodium Level 137, Potassium Level 4.0, Chloride Level 103, Carbon Dioxide Level 21, Anion Gap 13, Blood Urea Nitrogen 12, Creatinine 1.03, Estimat Glomerular Filtration Rate 81, BUN/Creatinine Ratio 12, Glucose Level 227H, Calcium Level 9.0, Corrected Calcium 9.2, Phosphorus Level 3.8, Magnesium Level 2.0, Total Bilirubin 0.5, Aspartate Amino Transf (AST/SGOT) 15, Alanine Aminotransferase (ALT/SGPT) 18, Alkaline Phosphatase 73, Total Protein 6.4, Albumin 3.7 Microbiology 03/16/22 MRSA Screen - Final, Complete MRSA not isolated Home Meds Active Amiodarone HCl 200 Mg Tablet 200 Mg PO DAILY Metoprolol Succinate 100 Mg Tab.er.24h 100 Mg PO HS Reported Aspirin 81 Mg Tab.chew 81 Mg PO DAILY Clopidogrel (Clopidogrel Bisulfate) 75 Mg Tablet 75 Mg PO DAILY Entresto 24 mg-26 mg Tablet (Sacubitril/Valsartan) 24 Mg-26 Mg Tablet 1 Ea PO BID Glipizide 5 Mg Tablet 5 Mg PO DAILY Atorvastatin Calcium 40 Mg Tablet 40 Mg PO HS Metformin HCl 1,000 Mg Tablet 1,000 Mg PO BID Sotalol (Sotalol HCl) 80 Mg Tablet 80 Mg PO BID Metoprolol Succinate 50 Mg Tab.er.24h 50 Mg PO HS Stool Softener (Docusate Sodium) 100 Mg Capsule 100 Mg PO DAILY Januvia (Sitagliptin Phosphate) 100 Mg Tablet 100 Mg PO DAILY Citalopram HBr (Citalopram Hydrobromide) 20 Mg Tablet 20 Mg PO HS Assessment/Pt Instructions PCP 1 week EP Clinical Systems Educator next sun Discharge Planning: <30 minutes discharge planning Discharge Instructions Discharge Diet: No Restrictions Activity as Tolerated: Yes Discharge Physical Examination Vital Signs Vital Signs Date Time Temp Pulse Resp B/P (MAP) Pulse Ox O2 Delivery O2 Flow Rate FiO2 03/17/22 10:00 60 18 113/63 93 Room Air 03/17/22 07:48 36.9 General Appearance: No Apparent Distress, WD/WN, Chronically ill Respiratory: Lungs Clear, Normal Breath Sounds Cardiovascular: Regular Rate, Rhythm Neurologic/Psychiatric: Alert, Oriented x3 Allergies: Coded Allergies: No Known Drug Allergies (Unverified , 07/08/19) Discharge Summary Date of Admission Mar 16, 2022 at 02:49 Date of Discharge Discharge Date: Mar 17, 2022 Admission Diagnosis Defibrillator discharge Discharge Diagnosis 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
--- NOTE | 2022-03-17 11:55 | Progress Note ---
CHEYENNE JIMÉNEZ 03/17/22 1155: Progress Note Aric Reeves is a 66yo Male with a PMH of VTach who presented to the ED after his defibrillator discharged two times while he was sitting at home on the couch. The patient denied chest pain throughout the duration of his hospital stay. Cardiology was consulted. The patient is being discharged today on 200mg of Amiodarone PO daily and is scheduled for a cardiac ablation in [place] next Sunday (03/22/2022). SHARLENE LAWSON DO 03/17/222201: Supervisory-Addendum Brief Verification & Attestation Participated in pt care: history, MDM, physical Personally performed: exam, history, MDM, supervision of care Care discussed with: Medical Student Procedures: n/a Results interpretation: Verified all documentation Verification and Attestation of Medical Student E/M Service A medical student performed and documented this service in my presence. I reviewed and verified all information documented by the medical student and made modifications to such information, when appropriate. I personally performed the physical exam and medical decision making. Sharlene Lawson, Mar 17, 2022,22:02 CHEYENNE JIMÉNEZ Mar 17, 2022 11:55 SHARLENE LAWSON DO Mar 17, 2022 22:02
--- NOTE | 2022-03-17 12:09 | Cardiology Progress Note ---
Subjective Date Seen by Provider: Mar 17, 2022 Time Seen by Provider: 12:08 Subjective/Events-last exam Patient was seen at bedside, sitting comfortably, feeling better. Review of Systems General: No Chills, No Night Sweats, No Fatigue, No Malaise, No Appetite, No Other HEENT: No Head Aches, No Visual Changes, No Eye Pain, No Ear Pain, No Dysphasia, No Sinus Congestion, No Post Nasal Drip, No Sore Throat, No Other Pulmonary: No Dyspnea, No Cough, No Pleuritic Chest Pain, No Other Cardiovascular: No: Chest Pain, Palpitations, Orthopnea, Paroxysmal Noc. Dyspnea, Edema, Lt Headedness, Other Objective-Cardiology Exam Last Set of Vital Signs Vital Signs 03/17/22 03/17/22 07:48 10:00 Temp 36.9 Pulse 60 Resp 18 B/P (MAP) 113/63 Pulse Ox 93 O2 Delivery Room Air I&O Intake and Output 03/17/22 00:00 Intake Total 2083 ml Output Total 2100 ml Balance -17 ml Intake Oral 1980 ml IV Total 103 ml Output Urine Total 2100 ml # Voids 1 # Bowel Movements 1 Daily Weight Change No General: Alert, Oriented X3, Cooperative HEENT: Atraumatic, PERRLA Neck: Supple, No JVD, No Thyromegaly Lungs: Clear to Auscultation, Normal Air Movement Heart: Regular Rate, Normal S1, Normal S2, No Murmurs Abdomen: Normal Bowel Sounds, Soft, No Tenderness, No Hepatosplenomegaly, No Masses Extremities: No Clubbing, No Cyanosis, No Edema, Normal Pulses, No Tenderness/Swelling Skin: No Rashes, No Breakdown, No Significant Lesion Neuro: Normal Gait, Normal Speech, Strength at 5/5 X4 Ext, Normal Tone, Sensation Intact Psych/Mental Status: Mental Status NL, Mood NL Results Lab Laboratory Tests 03/17/22 05:00 A/P-Cardiology Admission Diagnosis Sustained ventricular tachycardia Non-ST elevation myocardial infarction Coronary artery disease Congestive heart failure, chronic compensated left ventricular systolic dysfunction, ischemic cardiomyopathy Assessment/Plan Sustained ventricular tachycardia, status post 2 shocks from his defibrillator. Currently in sinus rhythm. Patient has history of incessant monomorphic ventricular tachycardia secondary to scar tissue, underwent [address] Dennison on May 2021 and November 2021. Patient is scheduled for another ablation in May 2022. I discussed the management plan with Dr. Funez and Dr. Saucedo. Will discontinue sotalol and discharged home on amiodarone 200 mg once a day Patient is scheduled for EP study and possible ablation next week Okay for discharge and follow-up with primary mulling machine operator Non-ST elevation myocardial infarction, elevated troponin level, probably type II myocardial infarction secondary to the shock from his defibrillator. Denied any chest pain, had nonspecific EKG changes. Continue to monitor for now Coronary artery disease, history of CABG in 1989, Cardiac catheterization was done in July 2019 showed occlusion of the LAD, 50% mid circumflex artery with moderate to severe disease at the proximal right coronary artery. Occlusion of the distal right coronary artery. Occluded vein graft probably to the distal right coronary artery, patent vein graft to the diagonal artery with 60% stenosis, atretic but patent SANDERS to the LAD with elevated left ventricular end-diastolic pressure. Akinesia of the inferior wall and posterobasal wall with ejection fraction 35% Congestive heart failure, chronic compensated left ventricular systolic dysfunction, ejection fraction 30%. I will repeat 2D echocardiogram Abnormal baseline EKG with QS and some ST elevation in the inferolateral leads due to the old scar History of abdominal aortic aneurysm repair in the remote past with peripheral arterial disease Carotid stenosis, mild to moderate bilaterally with no significant obstructive disease. Diabetes mellitus, followed and managed by primary care physician Obesity, BMI 29 Previous history of tobaccoism, he has stopped smoking in 1999 History of erectile dysfunction CELIA KELLY MD Mar 17, 2022 12:09
== END 2022-03-17 10:56 | disposition home or self-care (01) ==
LOC: ER 22:34 → EDUNIT# 22:34 → ICU 22:35 → ER 03-16 00:43 → UNDOADMOB 03-16 02:49 → ICU 03-16 02:49 → UNDOADMOB 03-16 04:35 → ICU 03-16 04:35 → UNDODISOB 03-17 10:56
PROVIDERS: ADMIT Internal Medicine; ATTEND Internal Medicine
DX: Z45.02 Encounter for adjustment and management of automatic implantable cardiac defibrillator (principal); I47.2 Ventricular tachycardia; I21.4 Non-ST elevation (NSTEMI) myocardial infarction; I50.22 Chronic systolic (congestive) heart failure; I25.10 Atherosclerotic heart disease of native coronary artery without angina pectoris; E66.9 Obesity, unspecified; Z68.29 Body mass index [BMI] 29.0-29.9, adult; I65.23 Occlusion and stenosis of bilateral carotid arteries; Z87.891 Personal history of nicotine dependence; E11.9 Type 2 diabetes mellitus without complications; Z79.84 Long term (current) use of oral hypoglycemic drugs
CPT/HCPCS: 71045; 80053 ×2; 82947 ×2; 83735 ×2; 83874; 84100; 84484 ×2; 85007; 85025; 85027; 85610; 85730; 87081; 93005 ×2; 93041; 93306; 96365; 96366 ×2; 96376; 99285; G0378; 36415

== ENCOUNTER 2022-03-18 10:35 | Emergency (ER) | payer MEDICARE ==
[~2022-03-18 10:35] MED LIST changes: +ATOR40TA70 PO; +GLIP5TAB13 PO; +METO50TA7 PO; +SOTA80TA62 PO
[2022-03-18] MEDS ORDERED: AMIODARONE FOR BOLUS 150 MG in NS (IVPB) 100 ML IV STA (10:49)
[2022-03-18 10:51] LABS: BASOPHILS # (AUTO) 0.1 10^3/uL (0.0-0.1); BASOPHILS % (AUTO) 1 % (0-10); EOSINOPHILS # (AUTO) 0.3 10^3/uL (0.0-0.3); EOSINOPHILS % (AUTO) 3 % (0-10); HEMATOCRIT 48 % (40-54); HEMOGLOBIN 15.8 g/dL (13.3-17.7); LYMPHOCYTES # (AUTO) 1.6 10^3/uL (1.0-4.0); LYMPHOCYTES % (AUTO) 13 % (12-44); MEAN CORPUSCULAR HEMOGLOBIN 29 pg (25-34); MEAN CORPUSCULAR HGB CONC 33 g/dL (32-36); MEAN CORPUSCULAR VOLUME 87 fL (80-99); MEAN PLATELET VOLUME 10.6 fL (9.0-12.2); MONOCYTES # (AUTO) 1.3 10^3/uL (0.0-1.0); MONOCYTES % (AUTO) 10 % (0-12); NEUTROPHILS # (AUTO) 9.4 10^3/uL (1.8-7.8); NEUTROPHILS % (AUTO) 73 % (42-75); PLATELET COUNT 240 10^3/uL (130-400); WHITE BLOOD COUNT 12.8 10^3/uL (4.3-11.0)
[2022-03-18] MEDS ORDERED: AMIODARONE INJECTION 450 MG in NORMAL SALINE 250 ML IV SCH (11:00)
[2022-03-18 11:04] LABS: INR 0.9 (0.8-1.4); PROTHROMBIN TIME PATIENT 12.1 SEC (12.2-14.7)
[2022-03-18 11:15] LABS: ALBUMIN 4.3 GM/DL (3.2-4.5); BILIRUBIN,TOTAL 0.4 MG/DL (0.1-1.0); CALCIUM 9.5 MG/DL (8.5-10.1); CREATININE SERUM 0.91 MG/DL (0.60-1.30); MAGNESIUM 1.8 MG/DL (1.6-2.4); POTASSIUM 4.3 MMOL/L (3.6-5.0); TOTAL PROTEIN 7.7 GM/DL (6.4-8.2)
--- NOTE | 2022-03-18 11:21 | ED Cardiac General ---
History of Present Illness General Chief Complaint: Cardiac/General Problems Stated Complaint: ARRHYTHMIA Source: patient, EMS, old records History of Present Illness Date Seen by Provider: Mar 18, 2022 Time Seen by Provider: 10:35 Initial Comments 66-year-old male presenting from home after recurrent episodes of his defibrillator firing. He was just discharged from the hospital at [facility] yesterday for the same problem. 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 He is scheduled to have another study and possible ablation in May when he started having issues this week. It was arranged that he would be seen by Dr. Funez for EP study and probable ablation on Sunday when he was discharged yesterday on Amiodarone. However he is only had 1 dose of the amiodarone pill 200 mg last night. He states that this morning he was still in bed when the defibrillator fired the first time. Since then it had fired 2 additional times prior to EMS picking him up. It fired 3 more times since EMS picked him up and brought him to the emergency department. He states that he feels lightheaded and seemed like he is going to pass out and then defibrillator fires. He feels short kick and has some pain on the defibrillator fires but then his heart goes back into a sinus rhythm. Severity: severe Activities at Onset: rest Prior CP/Workup: cardiac cath, echocardiography NTG SL LEAD GENERATION REPRESENTATIVE: No ASA po LEAD GENERATION REPRESENTATIVE: No Associated Systoms: No Chest Pain, No Cough, No Diaphoresis, No Fever/Chills, No Headaches, No Loss of Appetite, No Malaise, No Nausea/Vomiting, No Seizure, No Shortness of Air, No Syncope, No Weakness Allergies and Home Medications Allergies Coded Allergies: No Known Drug Allergies (Unverified , 07/08/19) Patient Home Medication List Home Medication List Reviewed: Yes Amiodarone HCl (Amiodarone HCl) 200 Mg Tablet, 200 MG PO DAILY Prescribed by: GUERA LAWSON on 03/17/22 1057 Aspirin (Aspirin) 81 Mg Tab.chew, 81 MG PO DAILY, (Reported) Entered as Reported by: PERI ANGELES on 03/16/22 1423 Atorvastatin Calcium (Atorvastatin Calcium) 40 Mg Tablet, 40 MG PO HS, (Reported) Entered as Reported by: PERI ANGELES on 03/16/22 1419 Citalopram Hydrobromide (Citalopram HBr) 20 Mg Tablet, 20 MG PO HS, (Reported) Entered as Reported by: DARLIN ROYAL on 07/08/19 1452 Clopidogrel Bisulfate (Clopidogrel) 75 Mg Tablet, 75 MG PO DAILY, (Reported) Entered as Reported by: PERI ANGELES on 03/16/22 1420 Docusate Sodium (Stool Softener) 100 Mg Capsule, 100 MG PO DAILY, (Reported) Entered as Reported by: DARLIN ROYAL on 07/08/19 1503 Glipizide (Glipizide) 5 Mg Tablet, 5 MG PO DAILY, (Reported) Entered as Reported by: PERI ANGELES on 03/16/22 1419 Metformin HCl (Metformin HCl) 1,000 Mg Tablet, 1,000 MG PO BID, (Reported) Entered as Reported by: PERI ANGELES on 03/16/22 1417 Metoprolol Succinate (Metoprolol Succinate) 100 Mg Tab.er.24h, 100 MG PO HS Prescribed by: GUERA LAWSON on 03/17/22 1057 Sacubitril/Valsartan (Entresto 24 mg-26 mg Tablet) 24 Mg-26 Mg Tablet, 1 EA PO BID, (Reported) Entered as Reported by: PERI ANGELES on 03/16/22 1420 Sitagliptin Phosphate (Januvia) 100 Mg Tablet, 100 MG PO DAILY, (Reported) Entered as Reported by: DARLIN ROYAL on 07/08/19 1452 Discontinued Medications Metoprolol Succinate (Metoprolol Succinate) 50 Mg Tab.er.24h, 50 MG PO HS, (Reported) Entered as Reported by: PERI ANGELES on 03/16/22 1415 Sotalol HCl (Sotalol) 80 Mg Tablet, 80 MG PO BID, (Reported) Entered as Reported by: PERI ANGELES on 03/16/22 1415 Review of Systems Review of Systems Constitutional: No chills, No fever EENTM: No Symptoms Reported Respiratory: No Symptoms Reported Cardiovascular: See HPI Gastrointestinal: No Symptoms Reported Genitourinary: No Symptoms Reported Musculoskeletal: no symptoms reported Skin: No rash Psychiatric/Neurological: No Symptoms Reported Endocrine: No Symptoms Reported Past [id number] Hx Patient Social History Tobacco Use?: No Immunizations Up To Date First/Initial COVID19 Vaccinat: NOVEMBER 2020 Second COVID19 Vaccination Davion: NOVEMBER 2020 Third COVID19 Vaccination Date: NOVEMBER 2020 Past Medical History Surgery/Hospitalization HX: RIGHT SHOULDER REPAIR, cardiac defibrillator, recurrent ventricular tachycardia, cardiac ablation x2 Surgeries: Yes Abdominal, CABG, Vascular Surgery Respiratory: No Cardiac: Yes (Ventricular tachycardia) Coronary Artery Disease, High Cholesterol, Hypertension Neurological: No Genitourinary: No Gastrointestinal: No Musculoskeletal: No Endocrine: No Diabetes, Non-Insulin dep HEENT: No Cancer: No Psychosocial: No Family Medical History Heart Disease Physical Exam Vital Signs Vital Signs - First Documented 03/18/22 03/18/22 03/18/22 10:57 11:30 11:32 Temp 36.2 Pulse 62 Resp 16 B/P (MAP) 162/96 (118) Pulse Ox 97 O2 Delivery Room Air Capillary Refill : Height, Weight, BMI Height: '" Weight: lbs. oz. kg; 29.25 BMI Method: General Appearance: No Apparent Distress, WD/WN HEENT: PERRL/EOMI, Pharynx Normal Neck: Full Range of Motion, Normal Inspection, Non Tender, Supple Respiratory: Chest Non Tender, Lungs Clear, Normal Breath Sounds, No Accessory Muscle Use, No Respiratory Distress Cardiovascular: Regular Rate, Rhythm, Normal Peripheral Pulses Gastrointestinal: Normal Bowel Sounds, No Pulsatile Mass, Non Tender, Soft Rectal: Deferred Extremity: Normal Capillary Refill, Normal Inspection, No Pedal Edema Neurologic/Psychiatric: Alert, Oriented x3, social sciences department chair II-XII Norm as Tested Skin: Normal Color, Warm/Dry Progress/Results/Core Measures Results/Orders Lab Results Laboratory Tests Test 03/18/22 10:42 03/18/22 10:52 Range/Units White Blood Count 12.8 H 4.3-11.0 10^3/uL Red Blood Count 5.44 4.30-5.52 10^6/uL Hemoglobin 15.8 13.3-17.7 g/dL Hematocrit 48 40-54 % Mean Corpuscular Volume 87 80-99 fL Mean Corpuscular Hemoglobin 29 25-34 pg Mean Corpuscular Hemoglobin Concent 33 32-36 g/dL Red Cell Distribution Width 12.7 10.0-14.5 % Platelet Count 240 130-400 10^3/uL Mean Platelet Volume 10.6 9.0-12.2 fL Immature Granulocyte % (Auto) 0 % Neutrophils (%) (Auto) 73 42-75 % Lymphocytes (%) (Auto) 13 12-44 % Monocytes (%) (Auto) 10 0-12 % Eosinophils (%) (Auto) 3 0-10 % Basophils (%) (Auto) 1 0-10 % Neutrophils # (Auto) 9.4 H 1.8-7.8 10^3/uL Lymphocytes # (Auto) 1.6 1.0-4.0 10^3/uL Monocytes # (Auto) 1.3 H 0.0-1.0 10^3/uL Eosinophils # (Auto) 0.3 0.0-0.3 10^3/uL Basophils # (Auto) 0.1 0.0-0.1 10^3/uL Immature Granulocyte # (Auto) 0.1 0.0-0.1 10^3/uL Prothrombin Time 12.1 L 12.2-14.7 SEC INR Comment 0.9 0.8-1.4 Activated Partial Thromboplast Time 26 24-35 SEC Sodium Level 135 135-145 MMOL/L Potassium Level 4.3 3.6-5.0 MMOL/L Chloride Level 97 L 98-107 MMOL/L Carbon Dioxide Level 24 21-32 MMOL/L Anion Gap 14 5-14 MMOL/L Blood Urea Nitrogen 17 7-18 MG/DL Creatinine 0.91 0.60-1.30 MG/DL Estimat Glomerular Filtration Rate 94 BUN/Creatinine Ratio 19 Glucose Level 310 H 70-105 MG/DL Calcium Level 9.5 8.5-10.1 MG/DL Corrected Calcium 9.3 8.5-10.1 MG/DL Magnesium Level 1.8 1.6-2.4 MG/DL Total Bilirubin 0.4 0.1-1.0 MG/DL Aspartate Amino Transf (AST/SGOT) 14 5-34 U/L Alanine Aminotransferase (ALT/SGPT) 12 0-55 U/L Alkaline Phosphatase 91 40-136 U/L Troponin I < 0.30 <0.30 NG/ML Pro-B-Type Natriuretic Peptide 161.5 H <125.0 PG/ML Total Protein 7.7 6.4-8.2 GM/DL Albumin 4.3 3.2-4.5 GM/DL SARS-CoV-2 RNA (RT-PCR) Not Detected Not Detecte My Orders Orders - DAJA SANDOVAL MD Cbc With Automated Diff (03/18/22 10:45) Magnesium (03/18/22 10:45) Ekg Tracing (03/18/22 10:45) Comprehensive Metabolic Panel (03/18/22 10:45) Protime With Inr (03/18/22 10:45) Partial Thromboplastin Time (03/18/22 10:45) O2 (03/18/22 10:45) Monitor-Rhythm Ecg Trace Only (03/18/22 10:45) Ed Iv/Invasive Line Start (03/18/22 10:45) Troponin I Fs (03/18/22 10:45) Probnp Fs (03/18/22 10:45) Amiodarone For Bolus (Cordarone Bolus) (03/18/22 10:49) Amiodarone Injection (Cordarone Injectio (03/18/22 11:00) Covid 19 Inhouse Test (03/18/22 10:55) Ekg Tracing (03/18/22 12:03) Vital Signs/I&O 03/18/22 03/18/22 03/18/22 10:57 11:30 11:32 Temp 36.2 36.2 Pulse 62 72 61 Resp 16 16 B/P (MAP) 162/96 (118) 108/63 Pulse Ox 97 97 O2 Delivery Room Air Progress Progress Note #1: Progress Note Placed on cardiac telemetry monitoring obtain labs and electrocardiogram. From review of his previous chart they had been discussing possible transfer to [facility] if he was not staying stable. Since he is having recurrent episodes of defibrillator discharge we will contact [facility] about possible transfer to [facility] where electrophysiology and cardiology could see in the meantime we will start amiodarone as a bolus of 150 mg and then as a drip at 1mg/min for 6 hours and 0.5 mg/min for 18hours. Josh7 carmenza/w BAYRON Velazquez, at [facility] and she accepted pt on behalf of Dr. Funez and [facility] for transfer. Will call back once a bed assignment is available. Progress Note #2: Progress Note Labs appear stable without acute significant abnormality other than he has mild elevation of his white blood cell count to 12.8. Troponin is less than 0.3. The COVID swab was negative. Awaiting transfer information from [facility]. Progress Note #3: Progress Note While waiting on [facility] to get in touch with cardiology and arrange for bed the patient to go into sustained ventricular tachycardia. He was main taining his blood pressure and was awake and alert and responsive. While discussing with the patient about elective synchronized cardioversion the patient's defibrillator did discharge on its own. This returned into sinus rhythm. Shortly after this episode [facility] center called back and I spoke with FRANCISCA Ramos who was covering for Dr. Hurtado with the hospitalist service. He accepted the patient on behalf of Dr. Hurtado and the anticipated paging Dr. Funez on arrival to [facility]. Initial ECG Impression Date: Mar 18, 2022 Initial ECG Impression Time: 10:52 Initial ECG Rate: 66 Initial ECG Rhythm: Normal Sinus Initial ECG Comparisson: Unchanged Comment Normal sinus rhythm with a heart rate of 66 bpm. IA interval [address] elevation. There is global T wave flattening. Inferior lateral Q waves. QT interval 424 ms with a QTc interval 438 ms. Overall appears similar to prior tracings. There is artifact on the tracing. EKG : EKG Time: 12:02 Rate: 1515 Rhythm: V.Tach ECG Comparisson: Changed Comment Ventricular tachycardia with a rate of 151 bpm. Right bundle branch block. QT interval 422 ms with a QTc interval 508 ms. Change from previous tracing that showed sinus rhythm. Departure Impression Primary Impression: Ventricular tachycardia Additional Impression: Defibrillator discharge Disposition: XFER SHT-TRM HOSP Condition: Stable Transfer Transfer Reason: Exceeds level of care (Needs Electrophysiology District Manager In Training) Time Spoke to Accepting Phy: 11:07 Transfer Progress Notes I spoke with BAYRON Velazquez, at the [facility]. She accepted on behalf of Dr. Funez and electrophysiology at [facility]. She will contact the providers and call back with room assignment Patient will be admitted to Hospitalist service with Cardiology consult for electrophysiology. FRANCISCA Ramos accepted on behalf of Dr. Hurtado for the hospitalist service. Transfer Facility: [facility] Method of Transfer: EMS Departure-Patient Inst. Referrals: SHIRA GOMEZ MD (PCP) Primary Care Physician DAJA SANDOVAL MD Mar 18, 2022 11:21
[2022-03-18 11:32] VITALS: BP 108/63
== END 2022-03-18 13:28 | disposition short-term general hospital (02) ==
LOC: EDUNIT# 10:35 → ER FS 10:37
DX: T82.897A Other specified complication of cardiac prosthetic devices, implants and grafts, initial encounter (principal); I47.2 Ventricular tachycardia; D72.829 Elevated white blood cell count, unspecified; Z95.810 Presence of automatic (implantable) cardiac defibrillator; Z95.1 Presence of aortocoronary bypass graft; Z20.822 Contact with and (suspected) exposure to COVID-19
CPT/HCPCS: 36415; 80053; 83735; 83880; 84484; 85025; 85610; 85730; 87636; 93005; 93041

== ENCOUNTER → 2022-05-05 | Outpatient (RCR) | payer MEDICARE, MEDICAID | END | disposition home or self-care (01) | LOC: CR 04-17 10:49 | DX: Z29.8 Encounter for other specified prophylactic measures (principal); Z95.5 Presence of coronary angioplasty implant and graft | CPT/HCPCS: 93798 ==

== ENCOUNTER 2022-06-02 11:42 | Outpatient (RCR) | payer MEDICARE, MEDICAID | END 2022-06-05 | disposition home or self-care (01) | LOC: CR 11:42 | PROVIDERS: ATTEND Internal Medicine Interventional Cardiology | DX: Z29.8 Encounter for other specified prophylactic measures (principal); Z95.5 Presence of coronary angioplasty implant and graft | CPT/HCPCS: 93798 ==

== ENCOUNTER 2022-07-03 14:47 | Outpatient (RCR) | payer MEDICARE, MEDICAID | END 2022-07-05 | disposition home or self-care (01) | LOC: CR 14:47 | PROVIDERS: ATTEND Internal Medicine Interventional Cardiology | DX: Z29.8 Encounter for other specified prophylactic measures (principal); Z95.5 Presence of coronary angioplasty implant and graft | CPT/HCPCS: 93798 ==

== ENCOUNTER 2022-07-10 15:36 | Outpatient (RCR) | payer MEDICARE, MEDICAID | END 2022-08-05 | disposition home or self-care (01) | LOC: CR 15:36 | PROVIDERS: ATTEND Internal Medicine Interventional Cardiology | DX: Z29.8 Encounter for other specified prophylactic measures (principal); Z95.5 Presence of coronary angioplasty implant and graft | CPT/HCPCS: 93798 ==

== ENCOUNTER 2022-07-14 13:10 | Emergency (ER) | payer MEDICARE, MEDICAID ==
[~2022-07-14] VITALS: Ht 175.3 cm; Wt 90.7 kg
[2022-07-14 13:36] LABS: BASOPHILS # (AUTO) 0.1 10^3/uL (0.0-0.1); BASOPHILS % (AUTO) 1 % (0-10); EOSINOPHILS # (AUTO) 0.4 10^3/uL (0.0-0.3); EOSINOPHILS % (AUTO) 4 % (0-10); HEMATOCRIT 39 % (40-54); HEMOGLOBIN 12.8 g/dL (13.3-17.7); LYMPHOCYTES # (AUTO) 1.5 10^3/uL (1.0-4.0); LYMPHOCYTES % (AUTO) 18 % (12-44); MEAN CORPUSCULAR HEMOGLOBIN 29 pg (25-34); MEAN CORPUSCULAR HGB CONC 33 g/dL (32-36); MEAN CORPUSCULAR VOLUME 89 fL (80-99); MEAN PLATELET VOLUME 10.2 fL (9.0-12.2); MONOCYTES % (AUTO) 11 % (0-12); NEUTROPHILS # (AUTO) 5.5 10^3/uL (1.8-7.8); NEUTROPHILS % (AUTO) 65 % (42-75); PLATELET COUNT 227 10^3/uL (130-400); WHITE BLOOD COUNT 8.4 10^3/uL (4.3-11.0)
--- NOTE | 2022-07-14 13:44 | ED Cardiac General ---
History of Present Illness General Chief Complaint: Cardiac/General Problems Stated Complaint: DEFIBRILLATOR SHOCK Nursing Triage Note: Patient reports he had a "warm, fuzzy feeling", then his defibrillator shocked him today around 1230. Source: patient, family, EMS, old records Exam Limitations: no limitations History of Present Illness Date Seen by Provider: Jul 14, 2022 Time Seen by Provider: 13:40 Initial Comments 67yoM with PMH of CAD status post CABG, CHF, A. fib status post ablation, pacemaker/defibrillator, vtach s/p ablation coming in via EMS due to concerns for defibrillator going off. Patient felt a "warm/fuzzy feeling" around 1230 today. Afterwards, felt like his defibrillator shocked him. He had a V. tach ablation in March, and has not had a shock since then. Recently increase his metoprolol from 50 mg to 100 mg. Denies any chest pain, shortness of breath, abdominal pain, nausea, vomiting, diarrhea, weakness, numbness, headache, neck stiffness, vision changes, or any other concerns. He states he feels absolutely asymptomatic and at his baseline at this time. Allergies and Home Medications Allergies Coded Allergies: No Known Drug Allergies (Unverified , 07/08/19) Patient Home Medication List Home Medication List Reviewed: Yes Amiodarone HCl (Amiodarone HCl) 200 Mg Tablet, 200 MG PO DAILY Prescribed by: GUERA LAWSON on 03/17/22 1057 Aspirin (Aspirin) 81 Mg Tab.chew, 81 MG PO DAILY, (Reported) Entered as Reported by: PERI ANGELES on 03/16/22 1423 Atorvastatin Calcium (Atorvastatin Calcium) 40 Mg Tablet, 40 MG PO HS, (Reported) Entered as Reported by: PERI ANGELES on 03/16/22 1419 Citalopram Hydrobromide (Citalopram HBr) 20 Mg Tablet, 20 MG PO HS, (Reported) Entered as Reported by: DARLIN ROYAL on 07/08/19 1452 Clopidogrel Bisulfate (Clopidogrel) 75 Mg Tablet, 75 MG PO DAILY, (Reported) Entered as Reported by: PERI ANGELES on 03/16/22 1420 Docusate Sodium (Stool Softener) 100 Mg Capsule, 100 MG PO DAILY, (Reported) Entered as Reported by: DARLIN ROYAL on 07/08/19 1503 Glipizide (Glipizide) 5 Mg Tablet, 5 MG PO DAILY, (Reported) Entered as Reported by: PERI ANGELES on 03/16/22 1419 Metformin HCl (Metformin HCl) 1,000 Mg Tablet, 1,000 MG PO BID, (Reported) Entered as Reported by: PERI ANGELES on 03/16/22 1417 Metoprolol Succinate (Metoprolol Succinate) 100 Mg Tab.er.24h, 100 MG PO HS Prescribed by: GUERA LAWSON on 03/17/22 1057 Sacubitril/Valsartan (Entresto 24 mg-26 mg Tablet) 24 Mg-26 Mg Tablet, 1 EA PO BID, (Reported) Entered as Reported by: PERI ANGELES on 03/16/22 1420 Sitagliptin Phosphate (Januvia) 100 Mg Tablet, 100 MG PO DAILY, (Reported) Entered as Reported by: DARLIN ROYAL on 07/08/19 1452 Review of Systems Review of Systems Constitutional: No fever EENTM: No Symptoms Reported Respiratory: No Symptoms Reported Cardiovascular: See HPI Gastrointestinal: No Symptoms Reported Genitourinary: No Symptoms Reported Musculoskeletal: no symptoms reported Skin: no symptoms reported Psychiatric/Neurological: No Symptoms Reported Endocrine: No Symptoms Reported Hematologic/Lymphatic: No Symptoms Reported All Other Systems Reviewed Negative Unless Noted: Yes Past Lsnpmtc-Qbrwsk-Qmbxij Hx Patient Social History Tobacco Use?: No Substance use?: No Alcohol Use?: No Pt feels they are or have been: No Immunizations Up To Date First/Initial COVID19 Vaccinat: NOVEMBER 2020 Second COVID19 Vaccination Davion: NOVEMBER 2020 Third COVID19 Vaccination Date: NOVEMBER 2020 Past Medical History Surgery/Hospitalization HX: RIGHT SHOULDER REPAIR, cardiac defibrillator, recurrent ventriculartachycardia, cardiac ablation x2 Surgeries: Yes Abdominal, CABG, Vascular Surgery Respiratory: No Cardiac: Yes (Ventricular tachycardia) Coronary Artery Disease, High Cholesterol, Hypertension Neurological: No Genitourinary: No Gastrointestinal: No Musculoskeletal: No Endocrine: No Diabetes, Non-Insulin dep HEENT: No Cancer: No Psychosocial: No Family Medical History Heart Disease Physical Exam Vital Signs Vital Signs - First Documented 07/14/22 13:13 Temp 36.6 Pulse 69 Resp 16 B/P (MAP) 144/70 (94) Pulse Ox 98 O2 Delivery Room Air Capillary Refill : Less Than 3 Seconds Height, Weight, BMI Height: '" Weight: lbs. oz. kg; 29.00 BMI Method: General Appearance: No Apparent Distress, WD/WN HEENT: PERRL/EOMI, Normal ENT Inspection, Pharynx Normal Neck: Full Range of Motion, Normal Inspection, Non Tender, Supple Respiratory: Chest Non Tender, Lungs Clear, Normal Breath Sounds, No Accessory Muscle Use, No Respiratory Distress Cardiovascular: Regular Rate, Rhythm, No Edema, Normal Peripheral Pulses Gastrointestinal: Normal Bowel Sounds, Non Tender, Soft; No Guarding Extremity: Normal Capillary Refill, Normal Inspection, Normal Range of Motion, Non Tender, No Calf Tenderness, No Pedal Edema Neurologic/Psychiatric: No Motor/Sensory Deficits, Normal Mood/Affect Skin: Normal Color, Warm/Dry Lymphatic: No Adenopathy Progress/Results/Core Measures Results/Orders Lab Results Laboratory Tests Test 07/14/22 13:29 Range/Units White Blood Count 8.4 4.3-11.0 10^3/uL Red Blood Count 4.37 4.30-5.52 10^6/uL Hemoglobin 12.8 L 13.3-17.7 g/dL Hematocrit 39 L 40-54 % Mean Corpuscular Volume 89 80-99 fL Mean Corpuscular Hemoglobin 29 25-34 pg Mean Corpuscular Hemoglobin Concent 33 32-36 g/dL Red Cell Distribution Width 14.6 H 10.0-14.5 % Platelet Count 227 130-400 10^3/uL Mean Platelet Volume 10.2 9.0-12.2 fL Immature Granulocyte % (Auto) 1 % Neutrophils (%) (Auto) 65 42-75 % Lymphocytes (%) (Auto) 18 12-44 % Monocytes (%) (Auto) 11 0-12 % Eosinophils (%) (Auto) 4 0-10 % Basophils (%) (Auto) 1 0-10 % Neutrophils # (Auto) 5.5 1.8-7.8 10^3/uL Lymphocytes # (Auto) 1.5 1.0-4.0 10^3/uL Monocytes # (Auto) 1.0 0.0-1.0 10^3/uL Eosinophils # (Auto) 0.4 H 0.0-0.3 10^3/uL Basophils # (Auto) 0.1 0.0-0.1 10^3/uL Immature Granulocyte # (Auto) 0.0 0.0-0.1 10^3/uL Sodium Level 139 135-145 MMOL/L Potassium Level 4.2 3.6-5.0 MMOL/L Chloride Level 104 98-107 MMOL/L Carbon Dioxide Level 25 21-32 MMOL/L Anion Gap 10 5-14 MMOL/L Blood Urea Nitrogen 19 H 7-18 MG/DL Creatinine 0.83 0.60-1.30 MG/DL Estimat Glomerular Filtration Rate 97 BUN/Creatinine Ratio 23 Glucose Level 143 H 70-105 MG/DL Calcium Level 8.7 8.5-10.1 MG/DL Magnesium Level 1.7 1.6-2.4 MG/DL My Orders Orders - SYDNEY MYERS MD Basic Metabolic Panel (07/14/22 13:30) Cbc With Automated Diff (07/14/22 13:30) Magnesium (07/14/22 13:30) Ed Iv/Invasive Line Start (07/14/22 13:30) Ekg Tracing (07/14/22 13:30) Monitor-Rhythm Ecg Trace Only (07/14/22 13:30) Vital Signs/I&O 07/14/22 13:13 Temp 36.6 Pulse 69 Resp 16 B/P (MAP) 144/70 (94) Pulse Ox 98 O2 Delivery Room Air Blood Pressure Mean: 94 Progress Progress Note : Progress Note 67-year-old male coming in after feeling his defibrillator going off. ABCs were intact and vitals were stable on presentation. EKG appears similar to prior. Labs were obtained and his potassium is normal, magnesium 1.7. We evaluated his defibrillator with our [employer] device. He did have 1 episode of V. tach that was successfully treated around 12:30 PM today. Discussed the case with vocational case manager medical liaison today, Dr. Alvarez, and given he is asymptomatic, he is appropriate for discharge with outpatient follow-up. He was discharged home in stable condition with strict return precautions. Initial ECG Impression Date: Jul 14, 2022 Initial ECG Impression Time: 13:21 Initial ECG Rate: 62 Initial ECG Rhythm: Normal Sinus Comment Narrow complex atrially paced rhythm, no STEMI, appears similar to multiple prior EKGs on comparison Departure Impression Primary Impression: Defibrillator discharge Additional Impression: Recurrent ventricular tachycardia Disposition: 01 HOME, SELF-CARE Condition: Stable Departure-Patient Inst. Decision time for Depature: 14:11 Referrals: SHIRA GOMEZ MD (PCP) Primary Care Physician Patient Instructions: Ventricular Tachycardia Add. Discharge Instructions: Your defibrillator did appropriately go off around 12:30 PM today. Please call Dr. Forman's office and schedule an appointment for follow-up within the next week. If you develop any severe chest pain, severe shortness of breath, or any other concerns then please come back to the ER. Work/School Note: Work Release Form Date Seen in the Emergency Department: Jul 14, 2022 Return to Work: Jul 15, 2022 Restrictions: No Restrictions SYDNEY MYERS MD Jul 14, 2022 13:44
[2022-07-14 13:54] LABS: POTASSIUM 4.2 MMOL/L (3.6-5.0)
[2022-07-14 13:55] LABS: CALCIUM 8.7 MG/DL (8.5-10.1); CREATININE SERUM 0.83 MG/DL (0.60-1.30); MAGNESIUM 1.7 MG/DL (1.6-2.4)
[2022-07-14 14:26] VITALS: BP 115/62
== END 2022-07-14 14:27 | disposition home or self-care (01) ==
LOC: EDUNIT# 13:10 → ER FS 13:11
DX: T82.897A Other specified complication of cardiac prosthetic devices, implants and grafts, initial encounter (principal); I47.20 Ventricular tachycardia, unspecified; Z95.5 Presence of coronary angioplasty implant and graft
CPT/HCPCS: 36415; 80048; 83735; 85025; 93005; 93041

== ENCOUNTER 2022-07-20 21:36 | Emergency (ER) | payer MEDICARE, MEDICAID ==
[~2022-07-20] VITALS: Ht 175.2 cm; Wt 93.8 kg
[2022-07-20 22:08] LABS: BASOPHILS # (AUTO) 0.1 10^3/uL (0.0-0.1); BASOPHILS % (AUTO) 1 % (0-10); EOSINOPHILS # (AUTO) 0.4 10^3/uL (0.0-0.3); EOSINOPHILS % (AUTO) 5 % (0-10); HEMATOCRIT 40 % (40-54); HEMOGLOBIN 13.2 g/dL (13.3-17.7); LYMPHOCYTES # (AUTO) 1.8 10^3/uL (1.0-4.0); LYMPHOCYTES % (AUTO) 21 % (12-44); MEAN CORPUSCULAR HEMOGLOBIN 29 pg (25-34); MEAN CORPUSCULAR HGB CONC 33 g/dL (32-36); MEAN CORPUSCULAR VOLUME 89 fL (80-99); MONOCYTES % (AUTO) 11 % (0-12); NEUTROPHILS # (AUTO) 5.2 10^3/uL (1.8-7.8); NEUTROPHILS % (AUTO) 61 % (42-75); PLATELET COUNT 252 10^3/uL (130-400); WHITE BLOOD COUNT 8.5 10^3/uL (4.3-11.0)
[2022-07-20 22:29] LABS: CALCIUM 9.2 MG/DL (8.5-10.1); CREATININE SERUM 0.88 MG/DL (0.60-1.30); MAGNESIUM 1.8 MG/DL (1.6-2.4); POTASSIUM 4.3 MMOL/L (3.6-5.0)
--- NOTE | 2022-07-20 22:48 | ED Cardiac General ---
History of Present Illness General Chief Complaint: Cardiac/General Problems Stated Complaint: DEFIB WENT OFF Nursing Triage Note: Patient arrives via EMS to be checked after his defibrillator went off. EMS started an 18 in the left AC. Patient states that he has the defibrillator for V-Tach. He also reports being scheduled for an ablation on 08-01-22. Patient defibrillator went off approximately a week ago as well. Patient denies any chest pain or shortness of breath. Patient states he just wants to be checked out. Source: patient, EMS, old records Exam Limitations: no limitations History of Present Illness Date Seen by Provider: Jul 20, 2022 Time Seen by Provider: 21:38 Initial Comments This 67-year-old gentleman presents to the emergency room via EMS after his defibrillator discharged at home. He was watching his TV at the time when he felt warm and flushed. He then felt the defibrillator discharge. He denies any chest pain, palpitations, lightheadedness, or syncope. He had a similar event on July 14, was evaluated, and was discharged. He has history of V. tach and had ablation in March. He has a repeat ablation scheduled with Dr. Funez's partner on August 01. Allergies and Home Medications Allergies Coded Allergies: No Known Drug Allergies (Unverified , 07/08/19) Patient Home Medication List Home Medication List Reviewed: Yes Amiodarone HCl (Amiodarone HCl) 200 Mg Tablet, 200 MG PO DAILY Prescribed by: GUERA LAWSON on 03/17/22 1057 Aspirin (Aspirin) 81 Mg Tab.chew, 81 MG PO DAILY, (Reported) Entered as Reported by: PERI ANGELES on 03/16/22 1423 Atorvastatin Calcium (Atorvastatin Calcium) 40 Mg Tablet, 40 MG PO HS, (Reported) Entered as Reported by: PERI ANGELES on 03/16/22 1419 Citalopram Hydrobromide (Citalopram HBr) 20 Mg Tablet, 20 MG PO HS, (Reported) Entered as Reported by: DARLIN ROYAL on 07/08/19 1452 Clopidogrel Bisulfate (Clopidogrel) 75 Mg Tablet, 75 MG PO DAILY, (Reported) Entered as Reported by: PERI ANGELES on 03/16/22 1420 Docusate Sodium (Stool Softener) 100 Mg Capsule, 100 MG PO DAILY, (Reported) Entered as Reported by: DARLIN ROYAL on 07/08/19 1503 Glipizide (Glipizide) 5 Mg Tablet, 5 MG PO DAILY, (Reported) Entered as Reported by: PERI ANGELES on 03/16/22 1419 Metformin HCl (Metformin HCl) 1,000 Mg Tablet, 1,000 MG PO BID, (Reported) Entered as Reported by: PERI ANGELES on 03/16/22 1417 Metoprolol Succinate (Metoprolol Succinate) 100 Mg Tab.er.24h, 100 MG PO HS Prescribed by: GUERA LAWSON on 03/17/22 1057 Sacubitril/Valsartan (Entresto 24 mg-26 mg Tablet) 24 Mg-26 Mg Tablet, 1 EA PO BID, (Reported) Entered as Reported by: PERI ANGELES on 03/16/22 1420 Sitagliptin Phosphate (Januvia) 100 Mg Tablet, 100 MG PO DAILY, (Reported) Entered as Reported by: DARLIN ROYAL on 07/08/19 1452 Review of Systems Review of Systems Constitutional: no symptoms reported EENTM: No Symptoms Reported Respiratory: No Symptoms Reported Cardiovascular: See HPI Gastrointestinal: No Symptoms Reported Genitourinary: No Symptoms Reported Musculoskeletal: no symptoms reported Skin: no symptoms reported Psychiatric/Neurological: No Symptoms Reported Endocrine: No Symptoms Reported Hematologic/Lymphatic: No Symptoms Reported Past Wxmovvv-Avaoru-Riukwk Hx Patient Social History Tobacco Use?: No Substance use?: No Alcohol Use?: No Pt feels they are or have been: No Immunizations Up To Date First/Initial COVID19 Vaccinat: NOVEMBER 2020 Second COVID19 Vaccination Davion: NOVEMBER 2020 Third COVID19 Vaccination Date: NOVEMBER 2020 COVID19 Vaccine Risk Management Internship: [facility] Past Medical History Surgery/Hospitalization HX: RIGHT SHOULDER REPAIR, cardiac defibrillator, recurrent ventriculartachycardia, cardiac ablation x2 Surgeries: Yes Abdominal ("intestinal blackage" at 16 mo old), CABG, Coronary Stent, Defibrillator, Pacemaker, Vascular Surgery Respiratory: No Cardiac: Yes (Ventricular tachycardia) Coronary Artery Disease, High Cholesterol, Hypertension Neurological: No Genitourinary: No Gastrointestinal: No Musculoskeletal: No Endocrine: Yes Diabetes, Non-Insulin dep HEENT: No Cancer: No Psychosocial: No Family Medical History Heart Disease Physical Exam Vital Signs Vital Signs - First Documented 07/20/22 21:37 Temp 37.0 Pulse 82 Resp 15 B/P (MAP) 144/75 (98) Pulse Ox 96 O2 Delivery Room Air Capillary Refill : Less Than 3 Seconds Height, Weight, BMI Height: '" Weight: lbs. oz. kg; 30.00 BMI Method: General Appearance: No Apparent Distress, WD/WN HEENT: Normal ENT Inspection Neck: Normal Inspection; No JVD Respiratory: Lungs Clear, Normal Breath Sounds, No Accessory Muscle Use Cardiovascular: Regular Rate, Rhythm, No Edema, No Murmur Gastrointestinal: Non Tender, Soft Extremity: Normal Inspection, Non Tender, No Calf Tenderness, No Pedal Edema Neurologic/Psychiatric: Alert, Oriented x3, No Motor/Sensory Deficits, Normal Mood/Affect Skin: Normal Color, Warm/Dry Progress/Results/Core Measures Results/Orders Lab Results Laboratory Tests Test 07/20/22 21:55 Range/Units White Blood Count 8.5 4.3-11.0 10^3/uL Red Blood Count 4.53 4.30-5.52 10^6/uL Hemoglobin 13.2 L 13.3-17.7 g/dL Hematocrit 40 40-54 % Mean Corpuscular Volume 89 80-99 fL Mean Corpuscular Hemoglobin 29 25-34 pg Mean Corpuscular Hemoglobin Concent 33 32-36 g/dL Red Cell Distribution Width 14.3 10.0-14.5 % Platelet Count 252 130-400 10^3/uL Mean Platelet Volume 10.0 9.0-12.2 fL Immature Granulocyte % (Auto) 1 % Neutrophils (%) (Auto) 61 42-75 % Lymphocytes (%) (Auto) 21 12-44 % Monocytes (%) (Auto) 11 0-12 % Eosinophils (%) (Auto) 5 0-10 % Basophils (%) (Auto) 1 0-10 % Neutrophils # (Auto) 5.2 1.8-7.8 10^3/uL Lymphocytes # (Auto) 1.8 1.0-4.0 10^3/uL Monocytes # (Auto) 1.0 0.0-1.0 10^3/uL Eosinophils # (Auto) 0.4 H 0.0-0.3 10^3/uL Basophils # (Auto) 0.1 0.0-0.1 10^3/uL Immature Granulocyte # (Auto) 0.0 0.0-0.1 10^3/uL Sodium Level 135 135-145 MMOL/L Potassium Level 4.3 3.6-5.0 MMOL/L Chloride Level 101 98-107 MMOL/L Carbon Dioxide Level 25 21-32 MMOL/L Anion Gap 9 5-14 MMOL/L Blood Urea Nitrogen 24 H 7-18 MG/DL Creatinine 0.88 0.60-1.30 MG/DL Estimat Glomerular Filtration Rate 95 BUN/Creatinine Ratio 27 Glucose Level 95 70-105 MG/DL Calcium Level 9.2 8.5-10.1 MG/DL Magnesium Level 1.8 1.6-2.4 MG/DL My Orders Orders - REKHA ARAMBULA MD Basic Metabolic Panel (07/20/22 22:00) Cbc With Automated Diff (07/20/22 22:00) Magnesium (07/20/22 22:00) Ed Iv/Invasive Line Start (07/20/22 22:00) Ekg Tracing (07/20/22 22:00) Monitor-Rhythm Ecg Trace Only (07/20/22 22:00) Amiodarone For Bolus (Cordarone Bolus) (07/20/22 23:45) Medications Given in ED Current Medications Medications Dose Ordered Sig/Lucía Route Start Time Stop Time Status Last Admin Dose Admin Amiodarone HCl 150 mg/Sodium Chloride 103 ml @ 600 mls/hr ONCE ONCE IV 07/20/22 23:45 07/20/22 23:55 DC 07/20/22 23:50 600 MLS/HR Vital Signs/I&O 07/20/22 07/20/22 07/20/22 21:37 23:50 23:56 Temp 37.0 Pulse 82 60 60 Resp 15 13 B/P (MAP) 144/75 (98) 148/78 148/78 Pulse Ox 96 95 O2 Delivery Room Air Room Air 07/21/22 00:00 Intake Total 103 ml Balance 103 ml Blood Pressure Mean: 98 Progress Progress Note #1: Time: 23:00 Progress Note Pacemaker was interrogated. Patient did have a defibrillator discharge this evening for failed ATP. The defibrillation was successful. Patient was asymptomatic upon arrival. Evaluation of CBC and electrolytes was unremarkable. I contacted Dr. Jennings regarding his situation. Due to the frequency of defibrillator discharges, Dr. Jennings is recommending consultation with band edger. I have contacted [facility] to consult the band edger on-call for Dr. Saturnino Velasquez. Progress Note #2: Time: 23:39 Progress Note Case was reviewed with Alyse, physician child care assistant for Dr. Funez. She asked if patient is taking mexiletine, which he affirms. She agrees it would be a good idea for the patient to be transferred to [facility] for expedited ablation. However, [facility] was completely full and could not accept any transfers. I discussed the situation again with Dr. Jennings. Since the pacemaker is functioning properly and aborting the episodes of V. tach appropriately, the transfer is not an emergent necessity. He recommended giving a bolus of amiodarone 150 mg IV and allowing patient to discharge home. Patient is comfortable with this plan. Initial ECG Impression Date: Jul 20, 2022 Initial ECG Impression Time: 21:43 Initial ECG Rate: 76 Comment Paced rhythm. QRS morphology is wide at 186 ms which represents a change from prior EKGs that demonstrated paced rhythm. Departure Impression Primary Impression: Recurrent ventricular tachycardia Additional Impression: Defibrillator discharge Disposition: 01 HOME, SELF-CARE Condition: Stable Departure-Patient Inst. Decision time for Depature: 23:41 Referrals: SHIRA GOMEZ MD (PCP/Family) Primary Care Physician Patient Instructions: Ventricular Tachycardia Add. Discharge Instructions: Continue all of your current medications including this evening's dose of medications. Contact Dr. Funez's office in the morning for further instructions. Return to the ER if you have recurrent discharges of your defibrillator or other symptoms such as chest pain, shortness of breath, palpitations, etc. All discharge instructions reviewed with patient and/or family. Voiced understanding. Copy Copies To 1: MIGEL TAMAYO MD FACP FAC CCDS Copies To 2: SHIRA GOMEZ MD, JOSHUA T MD Jul 20, 2022 22:48
[2022-07-20] MEDS ORDERED: AMIODARONE FOR BOLUS 150 MG in NS (IVPB) 100 ML IV ONE (23:45)
[2022-07-20 23:56] VITALS: BP 148/78
== END 2022-07-21 00:03 | disposition home or self-care (01) ==
LOC: EDUNIT# 21:36 → ER FS 21:38
DX: T82.897A Other specified complication of cardiac prosthetic devices, implants and grafts, initial encounter (principal); I47.29 Other ventricular tachycardia; Z95.5 Presence of coronary angioplasty implant and graft
CPT/HCPCS: 36415; 80048; 83735; 85025; 93005; 93041

== ENCOUNTER → 2022-07-21 | Outpatient (CLI) | payer MEDICARE, MEDICAID ==
[2022-07-21 14:27] LABS: ALBUMIN 4.3 GM/DL (3.2-4.5); BILIRUBIN,TOTAL 0.3 MG/DL (0.1-1.0); CALCIUM 9.4 MG/DL (8.5-10.1); CREATININE SERUM 0.9 MG/DL (0.60-1.30); MAGNESIUM 1.8 MG/DL (1.6-2.4); POTASSIUM 4.5 MMOL/L (3.6-5.0)
== END ==
LOC: LAB FS 13:33
PROVIDERS: ATTEND Internal Medicine Cardiovascular Disease
DX: I47.20 Ventricular tachycardia, unspecified (principal)
CPT/HCPCS: 36415; 80053; 83735

== ENCOUNTER 2023-05-30 23:03 | Emergency (ER) | payer MEDICARE, MEDICAID ==
[~2023-05-30] VITALS: Ht 175 cm; Wt 90.7 kg
[~2023-05-30 23:03] MED LIST changes: -LOSA100T57 PO; +LOSA100T58 PO
[2023-05-31 00:15] VITALS: BP 154/80
--- NOTE | 2023-05-31 01:29 | ED Cardiac General ---
History of Present Illness General Source: patient, EMS History of Present Illness Date Seen by Provider: May 30, 2023 Time Seen by Provider: 23:03 Initial Comments 68-year-old male presenting by EMS from home after his defibrillator fired. 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 He felt fine prior to the defibrillator going off and was fine after it had fired. He states that this occurred approximately an hour prior to arrival in the ED. He denies having any chest pain, nausea, vomiting, shortness of breath, abdominal pain, fever, chills, cough. He denies missing any doses of medications. Timing/Duration: 1 hour Activities at Onset: rest NTG SL FISH FILLETER: No ASA po FISH FILLETER: No Associated Systoms: No Chest Pain, No Cough, No Diaphoresis, No Fever/Chills, No Headaches, No Loss of Appetite, No Malaise, No Nausea/Vomiting, No Rash, No Seizure, No Shortness of Air, No Syncope, No Weakness Allergies and Home Medications Allergies Coded Allergies: No Known Drug Allergies (Unverified , 07/08/19) Patient Home Medication List Home Medication List Reviewed: Yes Amiodarone HCl (Amiodarone HCl) 200 Mg Tablet, 200 MG PO DAILY Prescribed by: GUERA LAWSON on 03/17/22 1057 Aspirin (Aspirin) 81 Mg Tab.chew, 81 MG PO DAILY, (Reported) Entered as Reported by: PERI ANGELES on 03/16/22 1423 Atorvastatin Calcium (Atorvastatin Calcium) 40 Mg Tablet, 40 MG PO HS, (Reported) Entered as Reported by: PERI ANGELES on 03/16/22 1419 Citalopram Hydrobromide (Citalopram HBr) 20 Mg Tablet, 20 MG PO HS, (Reported) Entered as Reported by: DARLIN ROYAL on 07/08/19 1452 Clopidogrel Bisulfate (Clopidogrel) 75 Mg Tablet, 75 MG PO DAILY, (Reported) Entered as Reported by: PERI ANGELES on 03/16/22 1420 Docusate Sodium (Stool Softener) 100 Mg Capsule, 100 MG PO DAILY, (Reported) Entered as Reported by: DARLIN ROYAL on 07/08/19 1503 Glipizide (Glipizide) 5 Mg Tablet, 5 MG PO DAILY, (Reported) Entered as Reported by: PERI ANGELES on 03/16/22 1419 Metformin HCl (Metformin HCl) 1,000 Mg Tablet, 1,000 MG PO BID, (Reported) Entered as Reported by: PERI ANGELES on 03/16/22 1417 Metoprolol Succinate (Metoprolol Succinate) 100 Mg Tab.er.24h, 100 MG PO HS Prescribed by: GUERA LAWSON on 03/17/22 1057 Sacubitril/Valsartan (Entresto 24 mg-26 mg Tablet) 24 Mg-26 Mg Tablet, 1 EA PO BID, (Reported) Entered as Reported by: PERI ANGELES on 03/16/22 1420 Sitagliptin Phosphate (Januvia) 100 Mg Tablet, 100 MG PO DAILY, (Reported) Entered as Reported by: DARLIN ROYAL on 07/08/19 1452 Review of Systems Review of Systems Constitutional: No chills, No fever EENTM: No Symptoms Reported Respiratory: No Symptoms Reported Cardiovascular: See HPI Gastrointestinal: No Symptoms Reported Genitourinary: No Symptoms Reported Musculoskeletal: no symptoms reported Skin: no symptoms reported Psychiatric/Neurological: No Symptoms Reported Past Gdldavl-Qpdbxl-Eiljee Hx Immunizations Up To Date First/Initial COVID19 Vaccinat: NOVEMBER 2020 Second COVID19 Vaccination Davion: NOVEMBER 2020 Third COVID19 Vaccination Date: NOVEMBER 2020 Past Medical History Surgery/Hospitalization HX: RIGHT SHOULDER REPAIR, cardiac defibrillator, recurrent ventriculartachycardia, cardiac ablation x2 Surgeries: Yes Abdominal, CABG, Coronary Stent, Defibrillator, Pacemaker, Vascular Surgery Respiratory: No Cardiac: Yes (Ventricular tachycardia) Coronary Artery Disease, High Cholesterol, Hypertension Neurological: No Genitourinary: No Gastrointestinal: No Musculoskeletal: No Endocrine: Yes Diabetes, Non-Insulin dep HEENT: No Cancer: No Psychosocial: No Family Medical History Heart Disease Physical Exam Vital Signs Capillary Refill : Height, Weight, BMI Height: '" Weight: lbs. oz. kg; 30.00 BMI Method: General Appearance: No Apparent Distress, Chronically ill Respiratory: Chest Non Tender, Lungs Clear, Normal Breath Sounds, No Accessory Muscle Use, No Respiratory Distress Cardiovascular: Regular Rate, Rhythm, Normal Peripheral Pulses Gastrointestinal: Normal Bowel Sounds, No Pulsatile Mass, Non Tender, Soft Neurologic/Psychiatric: Alert, Oriented x3 Skin: Warm/Dry Progress/Results/Core Measures Results/Orders My Orders Orders - DAJA SANDOVAL MD Cbc And Automated Diff (05/31/23 01:40) Magnesium (05/31/23 01:40) Ekg Tracing (05/31/23 01:40) Comprehensive Metabolic Panel (05/31/23 01:40) Monitor-Rhythm Ecg Trace Only (05/31/23 01:40) Ed Iv/Invasive Line Start (05/31/23 01:40) Troponin I Fs (05/31/23 01:40) Probnp Fs (05/31/23 01:40) Progress Progress Note #1: Progress Note Differential diagnosis includes ventricular tachycardia, ventricular fibrillation, electrolyte imbalance, defibrillator failure. Interrogate his [employer] device to see if it had fired appropriately. Establish peripheral IV access and send labs for complete blood count, comprehensive metabolic profile, troponin, proBNP, magnesium. Cardiac desk monitor to watch for acute arrhythmia. On my initial interpretation of his cardiac desk monitor he is in a paced rhythm. Obtain electrocardiogram to look for signs of ischemia. Initial interpretation of his electrocardiogram shows paced rhythm without ST elevation. Progress Note #2: Progress Note Report received from [employer] after interrogation of his device showed he had 1 episode of V. tach/V-fib that was treated with shock. He also had 6 episodes of V. tach or V-fib that were treated by his pacemaker. His labs showed elevation of his white blood cell count to 12.67 with a hemoglobin of 14 and platelets of 306. His comprehensive metabolic profile had mild hypokalemia with potassium of 3.1. His troponin was less than 0.3. His proBNP was slightly elevated at 735.9 but when age-adjusted was normal. Reassured patient that his defibrillator fired appropriately. No change in medicines or treatment required at this time. Check back with his jute bag cutting machine operator and primary care provider for continued concerns. Initial ECG Impression Date: May 30, 2023 Initial ECG Impression Time: 23:17 Initial ECG Rate: 70 Initial ECG Comparisson: Unchanged (No significant change from prior tracing done 07/20/2022) Comment On my initial interpretation and review his electrocardiogram showed electronic atrial and ventricular paced rhythm. Heart rate 70 bpm. MO interval [address] elevation. QT interval 452 ms with a QTc interval 473 ms. Overall appears similar to prior tracing from 07/20/2022 Departure Impression Primary Impression: Defibrillator discharge Disposition: 01 HOME, SELF-CARE Condition: Stable Departure-Patient Inst. Decision time for Depature: 23:57 Referrals: SHIRA GOMEZ MD (PCP) Primary Care Physician Patient Instructions: Automatic Cardioverter Defibrillator Implantation (DC) Add. Discharge Instructions: Your labs all appear stable without acute significant changes. The interrogation of your pacemaker defibrillator showed that it did have a discharge for a run of V. tach and treated this appropriately. Check back with your primary jute bag cutting machine operator and provider as needed for continued concerns DAJA SANDOVAL MD May 31, 2023 01:29
[2023-05-31 02:22] LABS: HEMATOCRIT 43 % (40-54); MEAN CORPUSCULAR HEMOGLOBIN 29 pg (25-34); MEAN CORPUSCULAR HGB CONC 33 g/dL (32-36); MEAN CORPUSCULAR VOLUME 90 fL (80-99); WHITE BLOOD COUNT 12.7 10^3/uL (4.3-11.0)
[2023-05-31 02:23] LABS: BASOPHILS % (AUTO) 1 % (0-10); EOSINOPHILS % (AUTO) 1 % (0-10); LYMPHOCYTES % (AUTO) 11 % (12-44); MEAN PLATELET VOLUME 10.6 fL (9.0-12.2); MONOCYTES % (AUTO) 11 % (0-12); NEUTROPHILS # (AUTO) 9.4 X 10^3 (1.8-7.8); NEUTROPHILS % (AUTO) 74 % (42-75); PLATELET COUNT 306 10^3/uL (130-400)
[2023-05-31 02:24] LABS: BASOPHILS # (AUTO) 0.1 10^3/uL (0.0-0.1); LYMPHOCYTES # (AUTO) 1.5 X 10^3 (1.0-4.0); MONOCYTES # (AUTO) 1.4 X 10^3 (0.0-1.0)
[2023-05-31 02:25] LABS: EOSINOPHILS # (AUTO) 0.1 10^3/uL (0.0-0.3)
[2023-05-31 02:41] LABS: POTASSIUM 4.5 MMOL/L (3.6-5.0); SODIUM 132 MMOL/L (135-145)
[2023-05-31 02:42] LABS: BUN/CREATININE RATIO 23; CARBON DIOXIDE 24 MMOL/L (21-32); CHLORIDE 96 MMOL/L (98-107); CREATININE SERUM 0.83 MG/DL (0.60-1.30)
[2023-05-31 02:43] LABS: GFR ESTIMATED 96
[2023-05-31 02:44] LABS: CALCIUM 9.3 MG/DL (8.5-10.1); GLUCOSE 421 MG/DL (70-105)
[2023-05-31 02:45] LABS: ALANINE AMINOTRANSFERASE 14 U/L (0-55); ALKALINE PHOSPHATASE 137 U/L (40-136); BILIRUBIN,TOTAL 0.3 MG/DL (0.1-1.0); MAGNESIUM 2.1 MG/DL (1.6-2.4)
[2023-05-31 02:46] LABS: ALBUMIN 4.2 GM/DL (3.2-4.5); TOTAL PROTEIN 6.8 GM/DL (6.4-8.2)
== END 2023-05-31 00:15 | disposition home or self-care (01) ==
LOC: EDUNIT# 23:03 → ER FS 23:04
DX: T82.897A Other specified complication of cardiac prosthetic devices, implants and grafts, initial encounter (principal); Y71.8 Miscellaneous cardiovascular devices associated with adverse incidents, not elsewhere classified
CPT/HCPCS: 36415; 80053; 83735; 83880; 84484; 85025; 93005; 93041

== ENCOUNTER → 2023-06-10 | Outpatient (CLI) | payer MEDICARE, MEDICAID ==
[~2023-06-10] MED LIST changes: -GLIP5TAB13 PO; +GLIP5TAB23 PO
--- NOTE | 2023-06-10 15:05 | Diagnostic Imaging Report ---
INDICATION: Right rib pain post fall. TECHNIQUE: Single view chest with 2 right ribs at 2:51 PM. CORRELATION STUDY: Chest 07/11/2019. FINDINGS: Post sternotomy changes with coronary artery bypass rings. Left-sided AICD. Heart size and mediastinum are unremarkable. Left lung clear. Small right pleural effusion. No appreciable pneumothorax. ACDF hardware of the spine as well as partial visualization of right prosthesis of the shoulder. There is no acute displaced right-sided rib fracture. IMPRESSION: 1. Small right pleural effusion. No pneumothorax or significant infiltrate. 2. Negative for acute displaced right rib fracture. Dictated by: Dictated on workstation # [id number]
== END ==
LOC: RAD FS 14:31
PROVIDERS: ATTEND Nurse Practitioner Family
DX: J90 Pleural effusion, not elsewhere classified (principal); R07.81 Pleurodynia; W19.XXXA Unspecified fall, initial encounter
CPT/HCPCS: 71101